=== PATIENT | male | born 1960 | race American Indian/Alaskan Native ===

== ENCOUNTER 2021-11-12 16:26 | Inpatient (IN) | payer OTHER ==
--- NOTE | 2021-11-12 16:29 | Emergency Department Report ---
ED General Adult HPI - General Chief complaint: Weakness Stated complaint: cva Time Seen by Provider: 11/12/21 16:26 Source: patient, family, EMS (Verbal report received from emergency medical services. EMS documentation not available at time of chart dictation ), RN notes reviewed Mode of arrival: Stretcher Limitations: Altered Mental Status, Physical Limitation - History of Present Illness Initial comments: The patient is a 61-year-old gentleman with history of stroke last month, diagnosed in [place]. He is brought to the hospital by emergency medical services with an EMS articulated complaint of worsening right-sided weakness, and confusion. EMS reports normal Accu-Chek in the field. As per EMS, last known well time was 5:00 PM yesterday. They report that patient is ambulatory in the field with requirements for significant assistance. The patient is awake and moving his left arm and left leg. The patient is confused, and has difficulty describing the qualitative nature of his symptoms, exacerbating factors relieving factors or aggravating factors. -: days(s) - Related Data Allergies Allergy/AdvReac Type Severity Reaction Status Date / Time No Known Allergies Allergy Unverified 11/12/21 17:19 ED Review of Systems ROS: Stated complaint: cva Other details as noted in HPI Comment: Unobtainable due to pts medical conditions ED Physical Exam - General Limitations: Altered Mental Status, Physical Limitation General appearance: in no apparent distress - Head Head exam: Present: atraumatic, normocephalic - Eye Eye exam: Present: normal appearance, EOMI. Absent: nystagmus - ENT ENT exam: Present: normal exam, normal orophraynx, mucous membranes moist, normal external ear exam - Neck Neck exam: Present: normal inspection, full ROM. Absent: tenderness, meningismus - Respiratory Respiratory exam: Present: decreased breath sounds. Absent: respiratory distress, wheezes, rales, rhonchi, stridor - Cardiovascular Cardiovascular Exam: Present: regular rate, normal rhythm, normal heart sounds. Absent: bradycardia, tachycardia, irregular rhythm, systolic murmur, diastolic murmur, rubs, gallop - GI/Abdominal GI/Abdominal exam: Present: soft. Absent: distended, tenderness, guarding, rebound, rigid, pulsatile mass - Rectal Rectal exam: Present: normal inspection - exam: Present: normal inspection External exam: Present: normal external exam - Extremities Exam Extremities exam: Present: normal inspection, full ROM (Left arm and left leg). Absent: pedal edema, calf tenderness - Back Exam Back exam: Present: normal inspection. Absent: tenderness, CVA tenderness (R), CVA tenderness (L), paraspinal tenderness, vertebral tenderness - Neurological Exam Neurological exam: Present: altered, other (There is right-sided weakness. Left arm and left leg 5 out of 5 strength. Sensation intact to light touch left arm and left leg. There is no facial droop. The tongue is midline. EOMI) - Psychiatric Psychiatric exam: Present: flat affect - Skin Skin exam: Present: warm, dry, intact, normal color. Absent: rash ED Course Vital Signs 11/12/21 11/12/21 11/12/21 17:09 17:12 17:16 Pulse Rate 83 80 89 Respiratory 19 20 21 Rate Blood Pressure 154/77 Blood Pressure 154/77 [Left] O2 Sat by Pulse 79 L 100 100 Oximetry 11/12/21 11/12/21 11/12/21 17:19 17:30 17:46 Pulse Rate 83 90 86 Respiratory 21 19 Rate Blood Pressure 142/77 142/77 Blood Pressure [Left] O2 Sat by Pulse 99 100 Oximetry 11/12/21 18:00 Pulse Rate 89 Respiratory 21 Rate Blood Pressure 151/99 Blood Pressure [Left] O2 Sat by Pulse 100 Oximetry - Reevaluation(s) Reevaluation #1: 11/12/21 18:24 Differential diagnosis, include but not limited to: Stroke, pneumonia, UTI, hypoglycemia, electrolyte derangement, thyroid derangement Assessment and plan: 61-year-old gentleman presenting with hypoglycemia, not able to swallow, started on dextrose drip, with worsening neurologic symptoms. Not a TPA candidate as he presents more than 4.5 hours after his last known well time, and as per collateral information from family, has had a stroke within the past [address] scan of the brain negative for acute findings. CT angiogram head and neck negative for large vessel occlusion. X-ray the chest unremarkable. Urinalysis pending. Start patient on dextrose infusion, administer rectal aspirin, admit patient to the medical service. 11/12/21 18:[address] Pascual, hospitalist ED Medical Decision Making - Lab Data Result diagrams: 11/12/21 16:48 11/12/21 16:48 Vital Signs 11/12/21 11/12/21 11/12/21 17:09 17:12 17:16 Pulse Rate 83 80 89 Respiratory 19 20 21 Rate Blood Pressure 154/77 Blood Pressure 154/77 [Left] O2 Sat by Pulse 79 L 100 100 Oximetry 11/12/21 17:19 Pulse Rate 83 Respiratory Rate Blood Pressure Blood Pressure [Left] O2 Sat by Pulse Oximetry Lab Results 11/12/21 11/12/21 11/12/21 Range/Units 16:48 16:48 16:48 WBC 9.4 (4.5-11.0) K/mm3 RBC 4.53 (3.65-5.03) M/mm3 Hgb 12.7 (11.8-15.2) gm/dl Hct 36.7 (35.5-45.6) % MCV 81 L (84-94) fl MCH 28 (28-32) pg MCHC 35 H (32-34) % RDW 13.4 (13.2-15.2) % Plt Count 294 (140-440) K/mm3 Lymph % (Auto) 15.1 (13.4-35.0) % Citrus % (Auto) 7.2 (0.0-7.3) % Eos % (Auto) 0.8 (0.0-4.3) % Baso % (Auto) 0.3 (0.0-1.8) % Lymph # (Auto) 1.4 (1.2-5.4) K/mm3 Citrus # (Auto) 0.7 (0.0-0.8) K/mm3 Eos # (Auto) 0.1 (0.0-0.4) K/mm3 Baso # (Auto) 0.0 (0.0-0.1) K/mm3 Seg Neutrophils % 76.6 H (40.0-70.0) % Seg Neutrophils # 7.2 (1.8-7.7) K/mm3 PT 13.5 (12.2-14.9) Sec. INR 0.93 (0.87-1.13) APTT 33.5 (24.2-36.6) Sec. Thrombin Time 14.6 L (15.1-19.6) Sec. Sodium 133 L (137-145) mmol/L Potassium 4.0 (3.6-5.0) mmol/L Chloride 96.7 L (98-107) mmol/L Carbon Dioxide 25 (22-30) mmol/L Anion Gap 15 mmol/L BUN 11 (9-20) mg/dL Creatinine 0.9 (0.8-1.3) mg/dL Estimated GFR > 60 ml/min BUN/Creatinine Ratio 12 % Glucose 79 (75-100) mg/dL POC Glucose (70-105) mg/dL Calcium 9.0 (8.4-10.2) mg/dL Magnesium (1.7-2.3) mg/dL Total Bilirubin 0.50 (0.1-1.2) mg/dL AST 18 (5-40) units/L ALT 25 (7-56) units/L Alkaline Phosphatase 64 (35-129) units/L Ammonia (25-60) umol/L Total Creatine Kinase 93 (55-170) units/L CK-MB (CK-2) < 1.0 (0.0-4.0) ng/mL CK-MB (CK-2) Rel Index 1.0 (0-4) Troponin T < 0.010 (0.00-0.029) ng/mL Total Protein 6.5 (6.3-8.2) g/dL Albumin 3.6 L (3.9-5) g/dL Albumin/Globulin Ratio 1.2 % 11/12/21 11/12/21 11/12/21 Range/Units 16:48 16:48 17:12 WBC (4.5-11.0) K/mm3 RBC (3.65-5.03) M/mm3 Hgb (11.8-15.2) gm/dl Hct (35.5-45.6) % MCV (84-94) fl MCH (28-32) pg MCHC (32-34) % RDW (13.2-15.2) % Plt Count (140-440) K/mm3 Lymph % (Auto) (13.4-35.0) % Citrus % (Auto) (0.0-7.3) % Eos % (Auto) (0.0-4.3) % Baso % (Auto) (0.0-1.8) % Lymph # (Auto) (1.2-5.4) K/mm3 Citrus # (Auto) (0.0-0.8) K/mm3 Eos # (Auto) (0.0-0.4) K/mm3 Baso # (Auto) (0.0-0.1) K/mm3 Seg Neutrophils % (40.0-70.0) % Seg Neutrophils # (1.8-7.7) K/mm3 PT (12.2-14.9) Sec. INR (0.87-1.13) APTT (24.2-36.6) Sec. Thrombin Time (15.1-19.6) Sec. Sodium (137-145) mmol/L Potassium (3.6-5.0) mmol/L Chloride (98-107) mmol/L Carbon Dioxide (22-30) mmol/L Anion Gap mmol/L BUN (9-20) mg/dL Creatinine (0.8-1.3) mg/dL Estimated GFR ml/min BUN/Creatinine Ratio % Glucose (75-100) mg/dL POC Glucose 61 L (70-105) mg/dL Calcium (8.4-10.2) mg/dL Magnesium 1.80 (1.7-2.3) mg/dL Total Bilirubin (0.1-1.2) mg/dL AST (5-40) units/L ALT (7-56) units/L Alkaline Phosphatase (35-129) units/L Ammonia 12.0 L (25-60) umol/L Total Creatine Kinase 93 (55-170) units/L CK-MB (CK-2) (0.0-4.0) ng/mL CK-MB (CK-2) Rel Index (0-4) Troponin T (0.00-0.029) ng/mL Total Protein (6.3-8.2) g/dL Albumin (3.9-5) g/dL Albumin/Globulin Ratio % - EKG Data -: EKG Interpreted by Wy EKG shows normal: sinus rhythm Rate: normal - EKG Data 11/12/21 18:00 The EKG is interpreted at 17: 43 Sinus rhythm, 63 bpm. Normal axis, QTC 4 1 7 ms. Motion artifact. High left ventricular voltage. Abnormal EKG. Not a STEMI. - Radiology Data Radiology results: pending, report reviewed, image reviewed CTA neck without and with intravenous contrast material CLINICAL HISTORY: stroke sx TECHNIQUE: Following acquisition of a timing bolus 0.625 mm thick contiguous axial scans were obtained from aortic arch to the skull base during rapid bolus intravenous contrast infusion. In addition to evaluation of axial source images multiplanar reconstructions were produced and reviewed for this report. 3 plane MIP reconstructions were produced and reviewed. Contrast dose report: Omnipaque 350: 100 ml, administered intravenously All CT examinations performed at this facility utilize modulated dose reduction, iterative reconstruction or weight-based dosing, as appropriate, to obtain a radiation dose which is as low as can reasonably be achieved. FINDINGS: Thoracic aorta:No abnormalities are identified along the course of the thoracic aorta..The origins of the great vessels have an unremarkable appearance. Brachiocephalic artery, left common carotid artery origin and left subclavian artery all have an unremarkable appearance. Right carotid artery:No a bnormalities are seen along the course of the RCCA, at the right carotid bifurcation or along the cervical portions of the RAYMOND. Left carotid artery: No abnormalities are noted along the course of the left common carotid artery, at the left carotid bifurcation or along the course of the cervical segments of the LICA. Posterior circulation:The vertebral arteries have an unremarkable appearance. Both vertebral arteries contribute to the basilar artery origin. The basilar artery has an unremarkable appearance. The degree of stenosis, if any, is determined utilizing NASCET like criteria. In this case there is no indication of hemodynamically significant stenosis at the carotid bifurcations or elsewhere. Evaluation of the nonvascular soft tissue structures reveal no abnormality. There is no indication of cervical lymphadenopathy. No abnormalities are seen along the course of the airway. Visualized portions of the parotid glands and the submandibular salivary glands have a normal appeara nce. Thyroid gland has a normal appearance. Evaluation of the lung apices reveals no evidence of lung nodule or infiltrate. Widespread cervical spondylosis is evident with anterior osteophyte formation present at multiple levels. Central spinal canal is adequate in size. Note is made of reflux of contrast into the left internal jugular vein and multiple paraspinous veins. IMPRESSION: 1. No indication of hemodynamically significant stenosis at the carotid bifurcations or elsewhere. CT A head with intravenous contrast CLINICAL HISTORY: stroke sx TECHNIQUE: 0.625 mm thick contiguous axial scans were obtained from the skull base to the skull vertex during rapid bolus administration of intravenous contrast material. Multiplanar reconstructions were produced in the coronal and sagittal planes. In addition 3 plane MIP instructions were produced and reviewed for this report. The axial source images and reconstructed images were reviewed for this report. CONTRAST DOSE REPORT: Omnipaque 350: 100 ml administered intravenously. All CT scans at this location are performed using CT dose reduction for ALARA by means of automated exposure control. FINDINGS: Internal carotid arterie s:Arjun, cavernous, opthalmic, clinoid and supraclinoid segments of the ICAs have an unremarkable appearance. Middle cerebral arteries:Normal and symmetrical M1 segments of the middle cerebral arteries are demonstrated. No abnormalities are seen on evaluation of the insular or opercular branches. Anterior cerebral arteries:Bilaterally symmetrical A1 segments are demonstrated. No abnormalities are seen along the course of the A2 segments or their visualized pericallosal branches. Vertebral arteries:Bilaterally symmetrical vertebral arteries are demonstrated. Both vertebral arteries contribute to the basilar artery origin. Basilar artery:Basilar artery has an unremarkable appearance. Posterior cerebral arteries:Bilaterally symmetrical posterior cerebral arteries are identified. [place] of [place]:Not intact. see above. Dural sinuses: Dural venous sinuses are well demonstrated on this exam. There is no evidence of dural sinus thrombosis. IMPRESSION: 1. No indication of large vessel occlusion or intracranial stenosis. COMMUNICATION: Time of Communication (STEWARDING SUPERVISOR/CDT): 1633 Central standard time Licensed Practitioner Receiving Report: Dr. Khoa Bonilla. Signer Name: Ross Rodgers MD Signed: 11/12/2021 4:[address] HEAD WITHOUT CONTRAST INDICATION / CLINICAL INFORMATION: Stroke symptoms. Increased right-sided weakness. History of infarction. TECHNIQUE: All CT scans at this location are performed using CT dose reduction for ALARA by means of automated exposure control. COMPARISON: None available. FINDINGS: HEMORRHAGE: No evidence of intracranial hemorrhage or extra-axial fluid collection. EXTRA- AXIAL SPACES: Cortical sulci and sylvian fissures are enlarged reflecting a degree of parenchymal volume loss which is greater than expected for the patient's age of 61 years. Basilar cisterns have an unremarkable appearance. VENTRICULAR SYSTEM: The third and lateral ventricles are enlarged reflecting presence of moderate parenchymal volume loss. CEREBRAL PARENCHYMA: Periventricular and deep white matter lucency is observed. This is probably secondary to advanced microvascular ischemic change. There is no indication of recent infarction. Several remote small deep infarctions are identified. The largest of these is in a left gangliocapsular distribution. Smaller remote deep infarctions are present in the posterior aspect of the right thalamus and in the subinsular region on the right. MIDLINE SHIFT OR HERNIATION: There is no mass effect. CEREBELLUM / BRAINSTEM: Brainstem has an unremarkable appearance. Age related cerebellar atrophy is noted. MIDLINE STRUCTURES:Pituitary gland has an unremarkable appearance. No abnormalities are seen in the pineal region. INTRACRANIAL VESSELS: No abnormalities are identified on head CT without contrast. CRANIOCERVICAL JUNCTION:No significant abnormality. ORBITS: visualized portions of the orbits have an unremarkable appearance. SOFT TISSUES of HEAD: No significant abnormality. CALVARIUM: Evaluation of bone windows reveals no abnormalities. PARANASAL SINUSES / MASTOID AIR CELLS: Circumferential mucosal thickening is present in the right maxillary sinus. Mucosal thickening is present in multiple anterior and mid ethmoid air cells bilaterally. Paranasal sinuses are otherwise clear. Normal and symmetrical pneumatization of the mastoid air cells is observed. IMPRESSION: 1. Multiple remote small deep infarctions. 2. No acute intracranial abnormality. CODE STROKE: Time of Communication (STEWARDING SUPERVISOR/CDT): 1600 hours Central standard time Licensed Practitioner Receiving Repo rt: Dr. Bonilla. Signer Name: Ross Rodgers MD Signed: 11/12/2021 4:07 PM Workstation Name: [id number] CHEST 1 VIEW, 11/12/2021 4:49 PM CLINICAL INFORMATION/INDICATION: CVA. Weakness. COMPARISON: None. FINDINGS: SUPPORT DEVICES: None. HEART: The cardiac silhouette is normal in size. LUNGS/PLEURA: The lungs are clear of focal airspace disease or significant pleural effusion. ADDITIONAL FINDINGS: No additional acute findings. IMPRESSION: 1. No evidence of acute cardiopulmonary process. Signer Name: Fawn Bustamante MD Signed: 11/12/2021 4:06 PM Workstation Name: [id number] Critical care attestation.: If time is entered above; I have spent that time in minutes in the direct care of this critically ill patient, excluding procedure time. ED Disposition Clinical Impression: Hypoglycemia, Right sided weakness, History of stroke Disposition: ADMITTED INPATIENT Is pt being admited?: Yes Does the pt Need Aspirin: No Condition: Fair
--- NOTE | 2021-11-12 16:43 | Consultation ---
History of Present Illness History of present illness: [facility] Consult Note # Demographics Consult Type: Acute Stroke Level 2 (4.5-24 hrs) Patient Location: Emergency Room First Name: Zac Last Name: Sebastian Date of : 1960 Age: 61 Gender: Male Facility: [facility] Time of Initial Page (): 11/12/2021, 16:11 Time of Return Call ( Time): 11/12/2021, 16:11 # HPI History: 61F with prior stroke with right sided deficits presents with worsening weakness and aphasia. Needing significant assistance to walk. # Scores Time of exam and NIHSS (): 11/12/2021, 16:29 Level of Consciousness 1a: [0] = Alert; keenly responsive LOC Questions 1b: [2] = Answers neither correctly LOC Commands 1c: [2] = Performs neither correctly Best Gaze 2: [1] = Partial gaze palsy Visual 3: [0] = No visual loss Facial Palsy 4: [0] = Normal symmetrical movements Motor Arm Left 5a: [0] = No drift Motor Arm Right 5b: [1] = Drift Motor Leg Left 6a: [0] = No drift Motor Leg Right 6b: [4] = No movement Limb Ataxia 7: [0] = Absent Sensory 8: [2] = Severe to total sensory loss Best Language 9: [2] = Severe aphasia Dysarthria 10: [1] = [id number] dysarthria Extinction and Inattention 11: [1] = Visual, tactile, auditory, spatial, or personal inattention NIHSS Total: 16 # Data Time Head CT personally read by me (): 11/12/2021, 16:[address]: no bleed preliminarily reviewed by me, please refer to radiology read for official reading CTA Head: no large vessel occlusion preliminarily reviewed by me, please refer to radiology read for official reading # Assessment Impression: Ischemic Stroke (Acute) # Plan Thrombolytic/Intervention: NOT IV Thrombolysis or IA Intervention candidate Thrombolytic Exclusion: > 4.5 hours Intraarterial Exclusion: no large vessel occlusion (LVO) Target Blood Pressure: SBP < 220 DBP < 105 Labs: hemoglobin A1c lipid panel Imaging: (urgency: routine): MRI Brain without contrast Diagnostic Test: echo with bubble study Therapy/Evaluation: NPO until swallow evaluation PT/OT evaluation speech/swallow consultation Medication: ASA 300 NV DVT Prophylaxis: SCD chemical DVT prophylaxis Other: consult on-site neurology service for full work-up and evaluation recommendations LDL < 70 permissive hypertension telemetry monitoring I have discussed my recommendations with the referring provider Disposition: admit # Logistics Telemedicine: Interactive 2 way audio and visual telecommunication technology was utilized during this visit Electronically signed at 11/12/2021 16:42 (Eastern Time) by Wily Fernandez MD
[2021-11-12 17:08] LABS: Basophils % (Auto) 0.3 % (0.0-1.8); Eosinophils # (Auto) 0.1 K/mm3 (0.0-0.4); Eosinophils % (Auto) 0.8 % (0.0-4.3); Hematocrit 36.7 % (35.5-45.6); Hemoglobin 12.7 gm/dl (11.8-15.2); Lymphocytes # (Auto) 1.4 K/mm3 (1.2-5.4); Lymphocytes % (Auto) 15.1 % (13.4-35.0); Mean Corpuscular HGB Conc 35 % (32-34); Mean Corpuscular Volume 81 fl (84-94); Monocytes # (Auto) 0.7 K/mm3 (0.0-0.8); Monocytes % (Auto) 7.2 % (0.0-7.3); Platelet Count 294 K/mm3 (140-440); Red Blood Count 4.53 M/mm3 (3.65-5.03); Red Cell Distribution Width 13.4 % (13.2-15.2)
[2021-11-12 17:17] LABS: INR 0.93 (0.87-1.13)
[2021-11-12 17:18] LABS: Partial Thromboplastin Time 33.5 Sec. (24.2-36.6); Thrombin Time 14.6 Sec. (15.1-19.6)
--- NOTE | 2021-11-12 17:20 | Cat Scan Report ---
CT HEAD WITHOUT CONTRAST INDICATION / CLINICAL INFORMATION: Stroke symptoms. Increased right-sided weakness. History of infarction. TECHNIQUE: All CT scans at this location are performed using CT dose reduction for ALARA by means of automated e xposure control. COMPARISON: None available. FINDINGS: HEMORRHAGE: No evidence of intracranial hemorrhage or extra-axial fluid collection. EXTRA-AXIAL SPACES: Cortical sulci and sylvian fissures are enlarged reflecting a degree of parenchym al volume loss which is greater than expected for the patient's age of 61 years. Basilar cisterns hav e an unremarkable appearance. VENTRICULAR SYSTEM: The third and lateral ventricles are enlarged reflecting presence of moderate par enchymal volume loss. CEREBRAL PARENCHYMA: Periventricular and deep white matter lucency is observed. This is probably seco ndary to advanced microvascular ischemic change. There is no indication of recent infarction. Several remote small deep infarctions are identified. The largest of these is in a left gangliocapsular dist ribution. Smaller remote deep infarctions are present in the posterior aspect of the right thalamus a nd in the subinsular region on the right. MIDLINE SHIFT OR HERNIATION: There is no mass effect. CEREBELLUM / BRAINSTEM: Brainstem has an unremarkable appearance. Age related cerebellar atrophy is n oted. MIDLINE STRUCTURES:Pituitary gland has an unremarkable appearance. No abnormalities are seen in the p ineal region. INTRACRANIAL VESSELS: No abnormalities are identified on head CT without contrast. CRANIOCERVICAL JUNCTION:No significant abnormality. ORBITS: visualized portions of the orbits have an unremarkable appearance. SOFT TISSUES of HEAD: No significant abnormality. CALVARIUM: Evaluation of bone windows reveals no abnormalities. PARANASAL SINUSES / MASTOID AIR CELLS: Circumferential mucosal thickening is present in the right max illary sinus. Mucosal thickening is present in multiple anterior and mid ethmoid air cells bilaterall y. Paranasal sinuses are otherwise clear. Normal and symmetrical pneumatization of the mastoid air ce lls is observed. IMPRESSION: 1. Multiple remote small deep infarctions. 2. No acute intracranial abnormality. CODE STROKE: Time of Communication (ENVIRONMENTAL GEOLOGIST/CDT): 1600 hours Central standard time Licensed Practitioner Receiving Report: Dr. Bonilla. Signer Name: Ross Rodgers MD Signed: 11/12/2021 5:07 PM Workstation Name: [id number]
--- NOTE | 2021-11-12 17:20 | XRay Report ---
CHEST 1 VIEW, 11/12/2021 4:49 PM CLINICAL INFORMATION/INDICATION: CVA. Weakness. COMPARISON: None. FINDINGS: SUPPORT DEVICES: None. HEART: The cardiac silhouette is normal in size. LUNGS/PLEURA: The lungs are clear of focal airspace disease or significant pleural effusion. ADDITIONAL FINDINGS: No additional acute findings. IMPRESSION: 1. No evidence of acute cardiopulmonary process. Signer Name: Fawn Bustamante MD Signed: 11/12/2021 5:06 PM Workstation Name: [employer]
[2021-11-12] MEDS ORDERED: D10W 250 ML IV SOLN IV PRN (17:33)
--- NOTE | 2021-11-12 17:38 | Cat Scan Report ---
CTA neck without and with intravenous contrast material CLINICAL HISTORY: stroke sx TECHNIQUE: Following acquisition of a timing bolus 0.625 mm thick contiguous axial scans were obtained from aort ic arch to the skull base during rapid bolus intravenous contrast infusion. In addition to evaluation of axial source images multiplanar reconstructions were produced and reviewed for this report. 3 [facility] ne MIP reconstructions were produced and reviewed. Contrast dose report: Omnipaque 350: 100 ml, administered intravenously All CT examinations performed at this facility utilize modulated dose reduction, iterative reconstruc tion or weight-based dosing, as appropriate, to obtain a radiation dose which is as low as can reason ably be achieved. FINDINGS: Thoracic aorta:No abnormalities are identified along the course of the thoracic aorta..The origins of the great vessels have an unremarkable appearance. Brachiocephalic artery, left common carotid arter y origin and left subclavian artery all have an unremarkable appearance. Right carotid artery:No abnormalities are seen along the course of the RCCA, at the right carotid bif urcation or along the cervical portions of the RAYMOND. Left carotid artery: No abnormalities are noted along the course of the left common carotid artery, a t the left carotid bifurcation or along the course of the cervical segments of the LICA. Posterior circulation:The vertebral arteries have an unremarkable appearance. Both vertebral arteries contribute to the basilar artery origin. The basilar artery has an unremarkable appearance. The degree of stenosis, if any, is determined utilizing NASCET like criteria. In this case there is no indication of hemodynamically significant stenosis at the carotid bifurcations or elsewhere. Evaluation of the nonvascular soft tissue structures reveal no abnormality. There is no indication of cervical lymphadenopathy. No abnormalities are seen along the course of the airway. Visualized porti ons of the parotid glands and the submandibular salivary glands have a normal appearance. Thyroid gla nd has a normal appearance. Evaluation of the lung apices reveals no evidence of lung nodule or infil trate. Widespread cervical spondylosis is evident with anterior osteophyte formation present at multiple lev els. Central spinal canal is adequate in size. Note is made of reflux of contrast into the left internal jugular vein and multiple paraspinous veins . IMPRESSION: 1. No indication of hemodynamically significant stenosis at the carotid bifurcations or elsewhere. CTA head with intravenous contrast CLINICAL HISTORY: stroke sx TECHNIQUE: 0.625 mm thick contiguous axial scans were obtained from the skull base to the skull vertex during r apid bolus administration of intravenous contrast material. Multiplanar reconstructions were produced in the coronal and sagittal planes. In addition 3 plane MIP instructions were produced and reviewed for this report. The axial source images and reconstructed images were reviewed for this report. CONTRAST DOSE REPORT: Omnipaque 350: 100 ml administered intravenously. All CT scans at this location are performed using CT dose reduction for ALARA by means of automated e xposure control. FINDINGS: Internal carotid arteries:Arjun, cavernous, opthalmic, clinoid and supraclinoid segments of the ICAs have an unremarkable appearance. Middle cerebral arteries:Normal and symmetrical M1 segments of the middle cerebral arteries are demon strated. No abnormalities are seen on evaluation of the insular or opercular branches. Anterior cerebral arteries:Bilaterally symmetrical A1 segments are demonstrated. No abnormalities are seen along the course of the A2 segments or their visualized pericallosal branches. Vertebral arteries:Bilaterally symmetrical vertebral arteries are demonstrated. Both vertebral arteri es contribute to the basilar artery origin. Basilar artery:Basilar artery has an unremarkable appearance. Posterior cerebral arteries:Bilaterally symmetrical posterior cerebral arteries are identified. [place]:Not intact. see above. Dural sinuses: Dural venous sinuses are well demonstrated on this exam. There is no evidence of dural sinus thrombosis. IMPRESSION: 1. No indication of large vessel occlusion or intracranial stenosis. COMMUNICATION: Time of Communication (BENDING ROLL OPERATOR/CDT): 1633 Central standard time Licensed Practitioner Receiving Report: Dr. Khoa Bonilla. Signer Name: Ross Rodgers MD Signed: 11/12/2021 5:34 PM Workstation Name: [email or web address]
[2021-11-12 17:41] LABS: Alanine Aminotransferase 25 units/L (7-56); Albumin 3.6 g/dL (3.9-5); BUN/Creatinine Ratio 12; Blood Urea Nitrogen 11 mg/dL (9-20); Hemolysis Index 16
[2021-11-12 17:44] LABS: Creatine Kinase MB < 1.0 ng/mL (0.0-4.0)
[2021-11-12] MEDS ORDERED: ASPIRIN 300 MG RECT SUPP PR ONE (18:00)
[2021-11-12] MEDS: DEXTROSE 10% IN WATER 1,000 ML IV SCH (19:00)
--- NOTE | 2021-11-12 19:07 | History and Physical Report ---
History of Present Illness Chief complaint: He is weak on his right side and he is more confused today History of present illness: 61 YO Male with Vascular Dementia, Cerebral Atherosclerosis, CVA presents to ED for evaluation. Patient has diminished cognition and is unable to provide detailed history. Patient history taken from EMS staff, ED staff, as well as patient family who was at bedside during exam and interview. As per family member reports the patient has experienced sudden onset weakness on his right s lauren as well as increased confusion. Patient symptoms began at around 1700 hrs. on the day prior to admission. Patient was found to have persistent symptoms today. EMS was notified and upon arrival the patient was found to have a neurologic deficit. A code stroke was called and the patient was transported to [facility] for further care and evaluation of the aforementioned symptoms. The patient was seen and evaluated in the emergency department. All lab and imaging studies reviewed. Patient found to have clinical symptoms consistent with CVA complicated by dysphagia, dysarthria. Patient also found to have hypoglycemia and was treated with dextrose therapy with mild improvement in symptoms. P atient admitted to telemetry and initiated on stroke protocol. No reports of fever, chills, chest pain, palpitation, productive cough, skin rash, recent contact, or known exposure to COVID-19. No prior admission for review. No medication listed at time of admission for reconciliation. Teleneurology consulted in ED. Advanced care planning conducted in ED. Patient has a positive gag reflex at the time my evaluation is able to protect his airway without difficulty. Past History Past Medical History: stroke Past Surgical History: No surgical history, Other (Reviewed) Social history: single, lives with family Family history: hypertension Medications and Allergies Allergies Allergy/AdvReac Type Severity Reaction Status Date / Time No Known Allergies Allergy Unverified 11/12/21 17:19 Active Meds: Active Medications Dextrose (D10w 250 Ml Iv Soln) 75 ml IV PRN PRN PRN Reason: Hypoglycemia Dextrose (D10w) 1,000 mls @ 100 mls/hr IV DIRECT RUBY Last Admin: 11/12/21 19:00 Dose: 100 mls/hr Review of Systems ROS unobtainable: due to mental status Exam - Constitutional Vitals: Temp Pulse Resp BP Pulse Ox 89 21 151/99 100 11/12/21 18:00 11/12/21 18:00 11/12/21 18:00 11/12/21 18:00 General appearance: Present: mild distress - EENT Eyes: Present: PERRL ENT: hearing intact, clear oral mucosa, hearing decreased - Neck Neck: Present: supple, normal ROM - Respiratory Respiratory effort: normal Respiratory: bilateral: CTA - Cardiovascular Heart Sounds: Present: S1 & S2. Absent: rub, click - Extremities Extremities: pulses symmetrical, No edema Peripheral Pulses: within normal limits - Abdominal General gastrointestinal: Present: soft, non-tender, non-distended, normal bowel sounds Male genitourinary: Present: normal - Integumentary Integumentary: Present: clear, dry - Musculoskeletal Musculoskeletal: right sided weakness - Psychiatric Psychiatric: no intact judgment & insight, no memory intact, cooperative - Neurologic Neurologic: no CNII-XII intact, focal deficits, no moves all extremities, no gait normal HEART Score - HEART Score Troponin: Troponin T < 0.010 ng/mL (0.00-0.029) 11/12/21 16:48 Results - Labs CBC & Chem 7: 11/12/21 16:48 11/12/21 16:48 Labs: Abnormal lab results 11/12/21 11/12/21 11/12/21 Range/Units 16:48 16:48 16:48 MCV 81 L (84-94) fl MCHC 35 H (32-34) % Seg Neutrophils % 76.6 H (40.0-70.0) % Thrombin Time 14.6 L (15.1-19.6) Sec. Sodium 133 L (137-145) mmol/L Chloride 96.7 L (98-107) mmol/L POC Glucose (70-105) mg/dL Ammonia (25-60) umol/L Albumin 3.6 L (3.9-5) g/dL 11/12/21 11/12/21 Range/Units 16:48 17:12 MCV (84-94) fl MCHC (32-34) % Seg Neutrophils % (40.0-70.0) % Thrombin Time (15.1-19.6) Sec. Sodium (137-145) mmol/L Chloride (98-107) mmol/L POC Glucose 61 L (70-105) mg/dL Ammonia 12.0 L (25-60) umol/L Albumin (3.9-5) g/dL Assessment and Plan - Patient Problems (1) CVA (cerebral vascular accident) Current Visit: Yes Status: Acute Plan to address problem: CVA protocol: CT head, neuro check, seizure precautions, aspiration precautions, fall precautions, physical therapy consulted, Occupational Therapy consulted, speech therapy consulted, lipid panel, statin therapy, antiplatelet therapy, echocardiogram, carotid Doppler. Telemetry neurology consulted. (2) Right hemiparesis Current Visit: Yes Status: Acute Plan to address problem: Secondary to CVA, physical therapy consulted, supportive care. (3) Dysarthria due to acute cerebrovascular accident (CVA) Current Visit: Yes Status: Acute Plan to address problem: Speech therapy consulted, supportive care, (4) Dysphagia Current Visit: Yes Status: Acute Qualifiers: Dysphagia type: oropharyngeal phase Qualified Code(s): R13.12 - Dysphagia, oropharyngeal phase Plan to address problem: Speech therapy consulted, supportive care. (5) Debility Current Visit: Yes Status: Acute Plan to address problem: Physical therapy consulted, supportive care. (6) Hypoglycemia Current Visit: Yes Status: Acute Plan to address problem: Dextrose therapy. Repeat BMP in a.m. (7) DVT prophylaxis Current Visit: Yes Status: Acute Plan to address problem: SCD to bilateral lower extremities while in bed (8) Advance care planning Current Visit: Yes Status: Acute Plan to address problem: disease education conducted, care plan discussed, diagnoses discussed, prognosis discussed, patient is full code. +30 minutes.
[2021-11-12] MEDS ORDERED: METOCLOPRAMIDE 10 MG TAB PO PRN (19:10)
[2021-11-12] MEDS ORDERED: HYDROmorphone 1 MG/1 ML INJ IV PRN (19:10)
[2021-11-12] MEDS ORDERED: oxyCODONE /ACETAMINOPHEN 5-325MG TAB PO PRN (19:10)
[2021-11-12] MEDS ORDERED: ACETAMINOPHEN 325 MG TAB PO PRN (19:10)
[2021-11-12] MEDS ORDERED: MAGNESIUM HYDROXIDE (MOM) ORAL LIQD UDC PO PRN (19:10)
[2021-11-12 19:17] LABS: Bilirubin,Urine NEG (Negative); Blood,Urine NEG (Negative); Color,Urine Yellow (Yellow); Mucus,Urine 1+ /HPF; Protein,Urine <15 mg/dL mg/dL (Negative); WBC,Urine < 1.0 /HPF (0.0-6.0)
[2021-11-13] MEDS: DEXTROSE 10% IN WATER 1,000 ML IV SCH ×2 (04:01→21:13)
[2021-11-13] MEDS: ASPIRIN 325 MG TAB PO SCH (10:04)
[2021-11-13] MEDS: CLOPIDOGREL 75 MG TAB PO SCH (10:05)
--- NOTE | 2021-11-13 10:27 | Electrocardiograph Report ---
[facility] Test Date: 2021-11-12 Test Time: 17:43:50 Pat Name: TIMOTHY SANCHEZ Department: Room: A474 1 Gender: M Scallop Cutter: SOCORRO : 1960 Requested By: WALLY RIVERS Order Number: [id number] Reading MD: Nakul Cadet Measurements Intervals [place] Rate: 82 P: 58 MI: 164 QRS: 38 QRSD: 80 T: 33 QT: 358 QTc: 417 Interpretive Statements Sinus rhythm NSST'S No previous ECG available for comparison Electronically Signed On 11-13-2021 10:27:42 EDT by Nakul Cadet
--- NOTE | 2021-11-13 10:45 | Progress Note ---
Assessment and Plan Assessment and plan: 61 YO Male with Vascular Dementia, Cerebral Atherosclerosis, CVA presents to ED for evaluation of CVA patient found to have clinical symptoms consistent with CVA complicated by dysphagia, dysarthria. Patient also appears to have expressive aphasia. Patient also found to have hypoglycemia and was treated with dextrose therapy with mild improvement in symptoms. Patient admitted to telemetry and initiated on stroke protocol. Acute CVA with right hemiparesis Expressive aphasia Dysarthria Oropharyngeal dysphagia Debility Hypoglycemia 11/13/2021. Continue secondary prevention with aspirin and Lipitor. Check MRI brain and echocardiogram. CTA of head and neck are negative. Await neurology c onsultation. Await PT and ST evaluations History Interval history: No new issues overnight. Hospitalist Physical - Constitutional Vitals: Temp Pulse Resp BP Pulse Ox 97.3 F L 65 16 146/82 100 11/13/21 08:54 11/13/21 08:54 11/13/21 08:54 11/13/21 08:54 11/13/21 08:54 General appearance: Present: mild distress - EENT Eyes: Present: PERRL, EOM intact ENT: hearing intact, clear oral mucosa, dentition normal - Neck Neck: Present: supple, normal ROM - Respiratory Respiratory effort: normal Respiratory: bilateral: CTA - Cardiovascular Rhythm: regular Heart Sounds: Present: S1 & S2. Absent: gallop, rub - Extremities Extremities: no ischemia, No edema, Full ROM - Abdominal General gastrointestinal: soft, non-tender, non-distended, normal bowel sounds - Integumentary Integumentary: Present: clear, warm, dry - Neurologic Neurologic: CNII-XII intact, moves all extremities HEART Score - HEART Score Troponin: Troponin T < 0.010 ng/mL (0.00-0.029) 11/12/21 16:48 Results - Labs CBC & Chem 7: 11/12/21 16:48 11/12/21 16:48 Labs: Laboratory Last Values WBC 9.4 K/mm3 (4.5-11.0) 11/12/21 16:48 RBC 4.53 M/mm3 (3.65-5.03) 11/12/21 16:48 Hgb 12.7 gm/dl (11.8-15.2) 11/12/21 16:48 Hct 36.7 % (35.5-45.6) 11/12/21 16:48 MCV 81 fl (84-94) L 11/12/21 16:48 MCH 28 pg (28-32) 11/12/21 16:48 MCHC 35 % (32-34) H 11/12/21 16:48 RDW 13.4 % (13.2-15.2) 11/12/21 16:48 Plt Count 294 K/mm3 (140-440) 11/12/21 16:48 Lymph % (Auto) 15.1 % (13.4-35.0) 11/12/21 16:48 Otero % (Auto) 7.2 % (0.0-7.3) 11/12/21 16:48 Eos % (Auto) 0.8 % (0.0-4.3) 11/12/21 16:48 Baso % (Auto) 0.3 % (0.0-1.8) 11/12/21 16:48 Lymph # (Auto) 1.4 K/mm3 (1.2-5.4) 11/12/21 16:48 Otero # (Auto) 0.7 K/mm3 (0.0-0.8) 11/12/21 16:48 Eos # (Auto) 0.1 K/mm3 (0.0-0.4) 11/12/21 16:48 Baso # (Auto) 0.0 K/mm3 (0.0-0.1) 11/12/21 16:48 Seg Neutrophils % 76.6 % (40.0-70.0) H 11/12/21 16:48 Seg Neutrophils # 7.2 K/mm3 (1.8-7.7) 11/12/21 16:48 PT 13.5 Sec. (12.2-14.9) 11/12/21 16:48 INR 0.93 (0.87-1.13) 11/12/21 16:48 APTT 33.5 Sec. (24.2-36.6) 11/12/21 16:48 Thrombin Time 14.6 Sec. (15.1-19.6) L 11/12/21 16:48 Sodium 133 mmol/L (137-145) L 11/12/21 16:48 Potassium 4.0 mmol/L (3.6-5.0) 11/12/21 16:48 Chloride 96.7 mmol/L (98-107) L 11/12/21 16:48 Carbon Dioxide 25 mmol/L (22-30) 11/12/21 16:48 Anion Gap 15 mmol/L 11/12/21 16:48 BUN 11 mg/dL (9-20) 11/12/21 16:48 Creatinine 0.9 mg/dL (0.8-1.3) 11/12/21 16:48 Estimated GFR > 60 ml/min 11/12/21 16:48 BUN/Creatinine Ratio 12 % 11/12/21 16:48 Glucose 79 mg/dL (75-100) 11/12/21 16:48 POC Glucose 148 mg/dL (70-105) H 11/13/21 07:29 Calcium 9.0 mg/dL (8.4-10.2) 11/12/21 16:48 Magnesium 1.80 mg/dL (1.7-2.3) 11/12/21 16:48 Total Bilirubin 0.50 mg/dL (0.1-1.2) 11/12/21 16:48 AST 18 units/L (5-40) 11/12/21 16:48 ALT 25 units/L (7-56) 11/12/21 16:48 Alkaline Phosphatase 64 units/L (35-129) 11/12/21 16:48 Ammonia 12.0 umol/L (25-60) L 11/12/21 16:48 Total Creatine Kinase 93 units/L (55-170) 11/12/21 16:48 Total Creatine Kinase 93 units/L (55-170) 11/12/21 16:48 CK-MB (CK-2) < 1.0 ng/mL (0.0-4.0) 11/12/21 16:48 CK-MB (CK-2) Rel Index 1.0 (0-4) 11/12/21 16:48 Troponin T < 0.010 ng/mL (0.00-0.029) 11/12/21 16:48 Total Protein 6.5 g/dL (6.3-8.2) 11/12/21 16:48 Albumin 3.6 g/dL (3.9-5) L 11/12/21 16:48 Albumin/Globulin Ratio 1.2 % 11/12/21 16:48 TSH 1.040 mlU/mL (0.270-4.200) 11/12/21 16:48 Urine Color Yellow (Yellow) 11/12/21 18:06 Urine Turbidity Clear (Clear) 11/12/21 18:06 Urine pH 6.0 (5.0-7.0) 11/12/21 18:06 Ur Specific Leroy 1.060 (1.003-1.030) H 11/12/21 18:06 Urine Protein <15 mg/dl mg/dL (Negative) 11/12/21 18:06 Urine Glucose (UA) Neg mg/dL (Negative) 11/12/21 18:06 Urine Ketones Tr mg/dL (Negative) 11/12/21 18:06 Urine Blood Neg (Negative) 11/12/21 18:06 Urine Nitrite Neg (Negative) 11/12/21 18:06 Urine Bilirubin Neg (Negative) 11/12/21 18:06 Urine Urobilinogen 4.0 mg/dL (<2.0) 11/12/21 18:06 Ur Leukocyte Esterase Neg (Negative) 11/12/21 18:06 Urine WBC (Auto) < 1.0 /HPF (0.0-6.0) 11/12/21 18:06 Urine RBC (Auto) 1.0 /HPF (0.0-6.0) 11/12/21 18:06 U Epithel Cells (Auto) 3.0 /HPF (0-13.0) 11/12/21 18:06 Urine Mucus 1+ /HPF 11/12/21 18:06 Walker/IV: Voiding Method Condom Catheter Active Medications - Current Medications Current Medications: Generic Name Dose Route Start Last Admin Trade Name Freq PRN Reason Stop Dose Admin Acetaminophen 650 mg 11/12/21 19:10 Acetaminophen 325 Mg Tab PO Q4H PRN Pain, Mild (1-3) Aspirin 325 mg 11/13/21 10:00 Aspirin 325 Mg Tab PO QDAY RUBY Atorvastatin Calcium 40 mg 11/12/21 22:00 11/12/21 22:00 Atorvastatin 40 Mg Tab PO 40 mg QHS RUBY Administration Bisacodyl 10 mg 11/12/21 19:10 Bisacodyl 10 Mg Rect Supp MI QDAY PRN Constipation Clopidogrel Bisulfate 75 mg 11/13/21 10:00 Clopidogrel 75 Mg Tab PO QDAY RUBY Dextrose 0 ml 11/13/21 07:05 Dextrose 10% *Hypoglycemia IV PRN PRN Hypoglycemia Hydromorphone HCl 0.5 mg 11/12/21 19:10 Hydromorphone 1 Mg/1 Ml Inj IV Q23H PRN Pain , Severe (7-10) Dextrose 1,000 mls @ 100 mls/hr 11/12/21 18:00 11/13/21 04:01 D10w IV 100 mls/hr DIRECT RUBY Administration Magnesium Hydroxide 30 ml 11/12/21 19:10 Magnesium Hydroxide (Mom) Oral Liqd Udc PO Q4H PRN Constipation Metoclopramide HCl 10 mg 11/12/21 19:10 Metoclopramide 10 Mg Tab PO Q6H PRN Nausea And Vomiting Ondansetron HCl 4 mg 11/12/21 19:10 Ondansetron 4 Mg/2 Ml Inj IV Q8H PRN Nausea And Vomiting Oxycodone/Acetaminophen 1 tab 11/12/21 19:10 Oxycodone /Acetaminophen 5-325mg Tab PO Q16H PRN Pain, Moderate (4-6) Promethazine HCl 25 mg 11/12/21 19:10 Promethazine 25 Mg Rect Supp MI Q6H PRN Nausea And Vomiting Sodium Chloride 10 ml 11/12/21 19:10 11/12/21 22:00 Sodium Chloride 0.9% 10 Ml Flush Syringe IV 10 ml PRN PRN Administration LINE FLUSH
--- NOTE | 2021-11-13 14:55 | Vascular Lab Report ---
VL carotid duplex BILAT INDICATION / CLINICAL INFORMATION: stroke COMPARISON: None available. FINDINGS: RIGHT CAROTID: - CCA velocity: 102 cm/sec. - ICA peak systolic velocity: 66 cm/sec. - ICA/CCA PSV Ratio: Less than 2 Right Vertebral Artery: Antegrade flow. LEFT CAROTID: - CCA velocity: 105 cm/sec. - ICA peak systolic velocity: 56 cm/sec. - ICA/CCA PSV Ratio: Less than 2 Left Vertebral Artery: Antegrade flow. IMPRESSION: 1. No occlusion or hemodynamically significant stenosis of the bilateral carotid arteries. Velocity criteria are extrapolated from diameter data as defined by the Society of Radiologists in Ul trasound Consensus Conference, Radiology 2003; 229;340-346. NO STENOSIS (NORMAL) * Plaque = none; ICA PSV < 125 cm/sec; ICA/CCA PSV Ratio < 2.0 <50% STENOSIS * Plaque < 50%; ICA PSV < 125 cm/sec; ICA/CCA PSV Ratio < 2.0 50-69% STENOSIS * Plaque > 50%; ICA PSV = 125-230 cm/sec; ICA/CCA PSV Ratio = 2.0-4.0 >70% BUT <100% STENOSIS * Plaque > 50%; ICA PSV > 230 cm/sec; ICA/CCA PSV Ratio > 4.0 NEAR OCCLUSION * Plaque = visible lumen; ICA PSV = high/low/none; ICA/CCA PSV Ratio = variable TOTAL OCCLUSION * Plaque = no lumen; ICA PSV = none; ICA/CCA PSV Ratio = N/A Signer Name: Aydin Weiner MD Signed: 11/13/2021 2:50 PM Workstation Name: [id number]
--- NOTE | 2021-11-13 17:26 | Magnetic Resonance Report ---
MR brain wo con INDICATION / CLINICAL INFORMATION: 61 years Male; CVA, WEAKNESS RT SIDE. TECHNIQUE: Multiplanar, multisequence MR images of the brain were obtained. Motion artifact. COMPARISON: CT - 11/12/2021 FINDINGS: BRAIN / INTRACRANIAL CONTENTS: A few scattered areas of acute ischemia are identified in expected loc ation of the corpus callosum leftward of midline. Minimal involvement is seen in the gangliocapsular region on the right. There may be a few areas of subacute ischemia as well. Embolic phenomena should be considered. 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 Old, small branch PICA infarct seen on the left. Otherwise, no acute hemorrhage, mass effect, midline shift, hydrocephalus, or acute, large territori al infarct. Mild, diffuse cerebral atrophy noted. Mild to moderate degree of hippocampal atrophy suggested bilate rally. There are moderate, confluent areas of increased signal intensity on FLAIR imaging in the white matte r of the cerebral hemispheres. These are nonspecific findings and may be related to microangiopathy ( hypertension, diabetes, atherosclerosis), given the patient's age. CRANIOCERVICAL JUNCTION: No significant abnormality. VASCULAR FLOW-VOIDS: No significant abnormality. ORBITS: No significant abnormality of visualized orbits. SINUSES / MASTOIDS: Mild to moderate mucosal thickening seen in the ethmoids. Moderate mucosal thicke gary seen in the right maxillary antrum. ADDITIONAL FINDINGS: None. IMPRESSION: 1. A few, small, scattered areas of ischemia as described above. Embolic phenomena should be consider ed. 2. Otherwise, no focal mass, acute hemorrhage, hydrocephalus, or acute, large territorial infarct see n. 3. Sinus disease noted. Signer Name: Brendon Lane MD, III Signed: 11/13/2021 5:21 PM Workstation Name: [email or web address]
--- NOTE | 2021-11-14 09:42 | Progress Note ---
Assessment and Plan Assessment and plan: 61 YO Male with Vascular Dementia, Cerebral Atherosclerosis, CVA presents to ED for evaluation of CVA patient found to have clinical symptoms consistent with CVA complicated by dysphagia, dysarthria. Patient also appears to have expressive aphasia. Patient also found to have hypoglycemia and was treated with dextrose therapy with mild improvement in symptoms. Patient admitted to telemetry and initiated on stroke protocol. Acute CVA with right hemiparesis Expressive aphasia Dysarthria Oropharyngeal dysphagia Debility Hypoglycemia 11/13/2021. Continue secondary prevention with aspirin and Lipitor. Check MRI brain and echocardiogram. CTA of head and neck are negative. Await neurology c onsultation. Await PT and ST evaluations 11/13/2021. Continue secondary prevention with aspirin and Lipitor. MRI reveals a few small scattered areas of ischemia in the area of the corpus callosum left foot of the midline and minimal involvement in the ganglial capsular region on the right which could represent embolic phenomena. No focal mass, acute hemorrhage or hydrocephalus. No acute large territorial infarct seen. Echocardiogram did not reveal thrombi/emboli and no PFO. Physical therapy recommends subacute rehab. Speech therapy did not evaluate the patient yesterday. Await speech therapy evaluation to determine if patient will need Dobbhoff tube feeding. Continue D10 IV fluid for now History Interval history: No new issues overnight. Hospitalist Physical - Constitutional Vitals: Temp Pulse Resp BP Pulse Ox 98.3 F 77 18 142/82 97 11/14/21 08:06 11/14/21 08:06 11/14/21 08:06 11/14/21 08:06 11/14/21 09:33 General appearance: Present: mild distress - EENT Eyes: Present: PERRL, EOM intact ENT: hearing intact, clear oral mucosa, dentition normal - Neck Neck: Present: supple, normal ROM - Respiratory Respiratory effort: normal Respiratory: bilateral: CTA - Cardiovascular Rhythm: regular Heart Sounds: Present: S1 & S2. Absent: gallop, rub - Extremities Extremities: no ischemia, No edema, Full ROM - Abdominal General gastrointestinal: soft, non-tender, non-distended, normal bowel sounds - Integumentary Integumentary: Present: clear, warm, dry - Neurologic Neurologic: CNII-XII intact, moves all extremities HEART Score - HEART Score Troponin: Troponin T < 0.010 ng/mL (0.00-0.029) 11/12/21 16:48 Results - Labs CBC & Chem 7: 11/12/21 16:48 11/12/21 16:48 Labs: Laboratory Last Values WBC 9.4 K/mm3 (4.5-11.0) 11/12/21 16:48 RBC 4.53 M/mm3 (3.65-5.03) 11/12/21 16:48 Hgb 12.7 gm/dl (11.8-15.2) 11/12/21 16:48 Hct 36.7 % (35.5-45.6) 11/12/21 16:48 MCV 81 fl (84-94) L 11/12/21 16:48 MCH 28 pg (28-32) 11/12/21 16:48 MCHC 35 % (32-34) H 11/12/21 16:48 RDW 13.4 % (13.2-15.2) 11/12/21 16:48 Plt Count 294 K/mm3 (140-440) 11/12/21 16:48 Lymph % (Auto) 15.1 % (13.4-35.0) 11/12/21 16:48 [place] % (Auto) 7.2 % (0.0-7.3) 11/12/21 16:48 Eos % (Auto) 0.8 % (0.0-4.3) 11/12/21 16:48 Baso % (Auto) 0.3 % (0.0-1.8) 11/12/21 16:48 Lymph # (Auto) 1.4 K/mm3 (1.2-5.4) 11/12/21 16:48 [place] # (Auto) 0.7 K/mm3 (0.0-0.8) 11/12/21 16:48 Eos # (Auto) 0.1 K/mm3 (0.0-0.4) 11/12/21 16:48 Baso # (Auto) 0.0 K/mm3 (0.0-0.1) 11/12/21 16:48 Seg Neutrophils % 76.6 % (40.0-70.0) H 11/12/21 16:48 Seg Neutrophils # 7.2 K/mm3 (1.8-7.7) 11/12/21 16:48 PT 13.5 Sec. (12.2-14.9) 11/12/21 16:48 INR 0.93 (0.87-1.13) 11/12/21 16:48 APTT 33.5 Sec. (24.2-36.6) 11/12/21 16:48 Thrombin Time 14.6 Sec. (15.1-19.6) L 11/12/21 16:48 Sodium 133 mmol/L (137-145) L 11/12/21 16:48 Potassium 4.0 mmol/L (3.6-5.0) 11/12/21 16:48 Chloride 96.7 mmol/L (98-107) L 11/12/21 16:48 Carbon Dioxide 25 mmol/L (22-30) 11/12/21 16:48 Anion Gap 15 mmol/L 11/12/21 16:48 BUN 11 mg/dL (9-20) 11/12/21 16:48 Creatinine 0.9 mg/dL (0.8-1.3) 11/12/21 16:48 Estimated GFR > 60 ml/min 11/12/21 16:48 BUN/Creatinine Ratio 12 % 11/12/21 16:48 Glucose 79 mg/dL (75-100) 11/12/21 16:48 POC Glucose 105 mg/dL (70-105) 11/14/21 08:04 Calcium 9.0 mg/dL (8.4-10.2) 11/12/21 16:48 Magnesium 1.80 mg/dL (1.7-2.3) 11/12/21 16:48 Total Bilirubin 0.50 mg/dL (0.1-1.2) 11/12/21 16:48 AST 18 units/L (5-40) 11/12/21 16:48 ALT 25 units/L (7-56) 11/12/21 16:48 Alkaline Phosphatase 64 units/L (35-129) 11/12/21 16:48 Ammonia 12.0 umol/L (25-60) L 11/12/21 16:48 Total Creatine Kinase 93 units/L (55-170) 11/12/21 16:48 Total Creatine Kinase 93 units/L (55-170) 11/12/21 16:48 CK-MB (CK-2) < 1.0 ng/mL (0.0-4.0) 11/12/21 16:48 CK-MB (CK-2) Rel Index 1.0 (0-4) 11/12/21 16:48 Troponin T < 0.010 ng/mL (0.00-0.029) 11/12/21 16:48 Total Protein 6.5 g/dL (6.3-8.2) 11/12/21 16:48 Albumin 3.6 g/dL (3.9-5) L 11/12/21 16:48 Albumin/Globulin Ratio 1.2 % 11/12/21 16:48 TSH 1.040 mlU/mL (0.270-4.200) 11/12/21 16:48 Urine Color Yellow (Yellow) 11/12/21 18:06 Urine Turbidity Clear (Clear) 11/12/21 18:06 Urine pH 6.0 (5.0-7.0) 11/12/21 18:06 Ur Specific [place] 1.060 (1.003-1.030) H 11/12/21 18:06 Urine Protein <15 mg/dl mg/dL (Negative) 11/12/21 18:06 Urine Glucose (UA) Neg mg/dL (Negative) 11/12/21 18:06 Urine Ketones Tr mg/dL (Negative) 11/12/21 18:06 Urine Blood Neg (Negative) 11/12/21 18:06 Urine Nitrite Neg (Negative) 11/12/21 18:06 Urine Bilirubin Neg (Negative) 11/12/21 18:06 Urine Urobilinogen 4.0 mg/dL (<2.0) 11/12/21 18:06 Ur Leukocyte Esterase Neg (Negative) 11/12/21 18:06 Urine WBC (Auto) < 1.0 /HPF (0.0-6.0) 11/12/21 18:06 Urine RBC (Auto) 1.0 /HPF (0.0-6.0) 11/12/21 18:06 U Epithel Cells (Auto) 3.0 /HPF (0-13.0) 11/12/21 18:06 Urine Mucus 1+ /HPF 11/12/21 18:06 Walker/IV: Voiding Method Condom Catheter Active Medications - Current Medications Current Medications: Generic Name Dose Route Start Last Admin Trade Name Freq PRN Reason Stop Dose Admin Acetaminophen 650 mg 11/12/21 19:10 Acetaminophen 325 Mg Tab PO Q4H PRN Pain, Mild (1-3) Aspirin 325 mg 11/13/21 10:00 11/13/21 10:04 Aspirin 325 Mg Tab PO Not Given QDAY RUBY Atorvastatin Calcium 40 mg 11/12/21 22:00 11/13/21 21:12 Atorvastatin 40 Mg Tab PO Not Given QHS RUBY Bisacodyl 10 mg 11/12/21 19:10 Bisacodyl [address] QDAY PRN Constipation Clopidogrel Bisulfate 75 mg 11/13/21 10:00 11/13/21 10:05 Clopidogrel 75 Mg Tab PO Not Given QDAY [facility] Dextrose 0 ml 11/13/21 07:05 Dextrose 10% *Hypoglycemia IV PRN PRN Hypoglycemia Hydromorphone HCl 0.5 mg 11/12/21 19:10 Hydromorphone 1 Mg/1 Ml Inj IV Q23H PRN Pain , Severe (7-10) Dextrose 1,000 mls @ 100 mls/hr 11/12/21 18:00 11/13/21 21:13 D10w IV 100 mls/hr DIRECT RUBY Administration Magnesium Hydroxide 30 ml 11/12/21 19:10 Magnesium Hydroxide (Mom) Oral Liqd Udc PO Q4H PRN Constipation Metoclopramide HCl 10 mg 11/12/21 19:10 Metoclopramide 10 Mg Tab PO Q6H PRN Nausea And Vomiting Ondansetron HCl 4 mg 11/12/21 19:10 Ondansetron 4 Mg/2 Ml Inj IV Q8H PRN Nausea And Vomiting Oxycodone/Acetaminophen 1 tab 11/12/21 19:10 Oxycodone /Acetaminophen 5-325mg Tab PO Q16H PRN Pain, Moderate (4-6) Promethazine HCl 25 mg 11/12/21 19:10 Promethazine [address] Q6H PRN Nausea And Vomiting Sodium Chloride 10 ml 11/12/21 19:10 11/13/21 21:16 Sodium Chloride 0.9% 10 Ml Flush Syringe IV 10 ml PRN PRN Administration LINE FLUSH Nutrition/Malnutrition Assess - Dietary Evaluation Nutrition/Malnutrition Findings: Nutrition Notes Start: 11/13/21 13:00 Freq: Status: Active Protocol: Document 11/13/21 13:00 ANEESH (Rec: 11/13/21 13:19 ANEESH [id number]) Nutrition Notes Need for Assessment generated from: MD Order Initial or Follow up Assessment Current Diagnosis Stroke Other Pertinent Diagnosis Oropharyngeal Dysphagia, Disartria, R-hemiparesis, Debility, Hypoglycemia. Current Diet NPO (since 11/12 18:07). Labs/Tests 11/12: Na 133, Cl 96.7. Pertinent Medications 11/13: D10w 1000 ml @ 100 ml/ hr, others nutritionally unremarkable. 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 Weight Status Overweight Subjective/Other Information RD consult for dietary supplementation assessment. Pt currently on NPO. Pt presents oropharyngeal dysphagia, secondary to CVA, and requires BOILER WELDER evaluation, still pending. I don't recommend Oral Supplements at the time. Pt has missing teeth, according to Physical Assessment History notes. Percent of energy/protein needs met: Pt currently on NPO. Burn Absent Trauma Absent GI Symptoms Other Difficulty In Swallowing Food Allergy No Skin Integrity/Comment Assessment WNL. Current % PO Other #1 Nutrition Diagnosis Swallowing difficulty Comments: Proper diagnosis still pending for BOILER WELDER evaluation. Etiology CVA As Evidenced by Signs and Symptoms Oropharyngeal Dysphagia. Is patient on ventilator? No Is Patient Ambulatory and/or Out of Bed Yes REE-([place]-ambulatory/OOB) [ 1941.875 [id number]] Kcal/Kg value to use for calculation 22 Approximate Energy Requirements Using 1663 kcal/Kg Calculation Used for Recommendations Kcal/kg Additional Notes Protein: 0.8-1 g/Kg ABW; 61-76 g/day. Fluids: 1 ml/Kcal, or as per MD. Nutrition Intervention Change Diet Order: When pertinent advance to modified PO diet, as per BOILER WELDER recommendations. Add Supplement/Snack (indicate name/kcal Not Recommended at the time. /protein ) Goal #1 Facilitate PO intake of meals with mechanical modification during LOS. Goal #2 Maintain body weight within +/ -3% of admission body weight during LOS. Follow-Up By: 11/15/21 Additional Comments When pertinent, start monitoring food tolerance, %PO intake of meals, and BM.
--- NOTE | 2021-11-14 12:46 | Consultation ---
History of Present Illness Consult date: 11/14/21 Reason for Consult: CVA Chief complaint: The patient comes in for discussion of CVA - new onset per the Sister new speech issues and confusion , old CVA . No seizures . Past History Past Medical History: stroke Past Surgical History: No surgical history, Other (Reviewed) Social history: single, lives with family Family history: hypertension Medications and Allergies Allergies Allergy/AdvReac Type Severity Reaction Status Date / Time No Known Allergies Allergy Unverified 11/12/21 17:19 Home Medications Medication Instructions Recorded Confirmed Last Taken Type No Known Home Medications [No 11/14/21 11/14/21 Unknown History Reported Home Medications] Active Meds: Active Medications Acetaminophen (Acetaminophen 325 Mg Tab) 650 mg PO Q4H PRN PRN Reason: Pain, Mild (1-3) Aspirin (Aspirin 325 Mg Tab) 325 mg PO QDAY [facility] Last Admin: 11/13/21 10:04 Dose: Not Given Atorvastatin Calcium (Atorvastatin 40 Mg Tab) 40 mg PO QHS [facility] Last Admin: 11/13/21 21:12 Dose: Not Given Bisacodyl (Bisacodyl 10 Mg Rect Supp) 10 mg UT QDAY PRN PRN Reason: Constipation Clopidogrel Bisulfate (Clopidogrel 75 Mg Tab) 75 mg PO QDAY [facility] Last Admin: 11/13/21 10:05 Dose: Not Given Dextrose (Dextrose 10% *Hypoglycemia) 0 ml IV PRN PRN PRN Reason: Hypoglycemia Hydromorphone HCl (Hydromorphone 1 Mg/1 Ml Inj) 0.5 mg IV Q23H PRN PRN Reason: Pain , Severe (7-10) Dextrose (D10w) 1,000 mls @ 100 mls/hr IV DIRECT [facility] Last Admin: 11/13/21 21:13 Dose: 100 mls/hr Magnesium Hydroxide (Magnesium Hydroxide (Mom) Oral Liqd Udc) 30 ml PO Q4H PRN PRN Reason: Constipation Metoclopramide HCl (Metoclopramide 10 Mg Tab) 10 mg PO Q6H PRN PRN Reason: Nausea And Vomiting Ondansetron HCl (Ondansetron 4 Mg/2 Ml Inj) 4 mg IV Q8H PRN PRN Reason: Nausea And Vomiting Oxycodone/Acetaminophen (Oxycodone /Acetaminophen 5-325mg Tab) 1 tab PO Q16H PRN PRN Reason: Pain, Moderate (4-6) Promethazine HCl (Promethazine 25 Mg Rect Supp) 25 mg UT Q6H PRN PRN Reason: Nausea And Vomiting Sodium Chloride (Sodium Chloride 0.9% 10 Ml Flush Syringe) 10 ml IV PRN PRN PRN Reason: LINE FLUSH Last Admin: 11/13/21 21:16 Dose: 10 ml Physical Examination - Vital Signs Vital Signs: Vital Signs Pulse Resp Pulse Ox 83 19 79 L 11/12/21 17:09 11/12/21 17:09 11/12/21 17:09 - Physical Exam Narrative exam: The patient is alert , old right hemiparesis , speech is dysarthric . Gait is not tested . Results - Laboratory Findings CBC and BMP: 11/12/21 16:48 11/12/21 16:48 Abnormal Lab Findings: Abnormal Labs 11/12/21 11/12/21 11/12/21 16:48 16:48 16:48 MCV 81 L MCHC 35 H Seg Neutrophils % 76.6 H Thrombin Time 14.6 L Sodium 133 L Chloride 96.7 L POC Glucose Ammonia Albumin 3.6 L Ur Specific [place] 11/12/21 11/12/21 11/12/21 16:48 17:12 18:06 MCV MCHC Seg Neutrophils % Thrombin Time Sodium Chloride POC Glucose 61 L Ammonia 12.0 L Albumin Ur Specific [place] 1.060 H 11/12/21 11/13/21 11/13/21 23:01 07:29 15:47 MCV MCHC Seg Neutrophils % Thrombin Time Sodium Chloride POC Glucose 118 H 148 H 125 H Ammonia Albumin Ur Specific [place] Assessment and Plan 1. CVA ( new lessions- appear embolic superimposed over the old ones ). 2. Consider underlying intermittent Atrial Fibrillation . 3. Consult Cardiology for Out Patient Workup . 4. Agree with ASA and Plavix for now . 5. Reviewed MRI Brain with Sister and discussed Risk of Bleed . Call me with Questions . Dr. Jackman
[2021-11-14] MEDS: ASPIRIN 325 MG TAB PO SCH (16:20)
--- NOTE | 2021-11-14 16:39 | XRay Report ---
ABDOMEN 1 VIEW INDICATION / CLINICAL INFORMATION: dobhoff placement. COMPARISON: None available. FINDINGS: Weighted tip enteric catheter projects in the left mainstem bronchus. Recommend repositioning and adri maging prior to use. Notification: Technologist reported findings to patient's nurse and feeding tube has been removed. Signer Name: Demetrius Arechiga MD Signed: 11/14/2021 4:34 PM Workstation Name: [email or web address]
[2021-11-14] MEDS: CLOPIDOGREL 75 MG TAB PO SCH (16:50)
[2021-11-14] MEDS: DEXTROSE 10% IN WATER 1,000 ML IV SCH (23:15)
[2021-11-15] MEDS: ASPIRIN 325 MG TAB PO SCH (11:26)
[2021-11-15] MEDS: CLOPIDOGREL 75 MG TAB PO SCH (11:26)
--- NOTE | 2021-11-15 11:28 | Progress Note ---
Assessment and Plan Assessment and plan: 61 YO Male with Vascular Dementia, Cerebral Atherosclerosis, CVA presents to ED for evaluation of CVA patient found to have clinical symptoms consistent with CVA complicated by dysphagia, dysarthria. Patient also appears to have expressive aphasia. Patient also found to have hypoglycemia and was treated with dextrose therapy with mild improvement in symptoms. Patient admitted to telemetry and initiated on stroke protocol. Acute CVA with right hemiparesis Expressive aphasia Dysarthria Oropharyngeal dysphagia Debility Hypoglycemia 11/13/2021. Continue secondary prevention with aspirin and Lipitor. Check MRI brain and echocardiogram. CTA of head and neck are negative. Await neurology c onsultation. Await PT and ST evaluations 11/14/2021. Continue secondary prevention with aspirin and Lipitor. MRI reveals a few small scattered areas of ischemia in the area of the corpus callosum left foot of the midline and minimal involvement in the ganglial capsular region on the right which could represent embolic phenomena. No focal mass, acute hemorrhage or hydrocephalus. No acute large territorial infarct seen. Echocardiogram did not reveal thrombi/emboli and no PFO. Physical therapy recommends subacute rehab. Speech therapy did not evaluate the patient yesterday. Await speech therapy evaluation to determine if patient will need Dobbhoff tube feeding. Continue D10 IV fluid for now 11/15/2021. Speech therapy reports patient is aspiration risk. Patient exhibits a pharyngeal phase dysphagia complicated by a swallowing reflex delay. We will consult GI for PEG tube placement. Placed DHT for now and consult dietitian for tube feeding History Interval history: No new issues overnight. Hospitalist Physical - Constitutional Vitals: Temp Pulse Resp BP Pulse Ox 97.8 F 70 18 155/77 99 11/15/21 08:18 11/15/21 08:18 11/15/21 08:18 11/15/21 08:18 11/15/21 08:18 General appearance: Present: mild distress - EENT Eyes: Present: PERRL, EOM intact ENT: hearing intact, clear oral mucosa, dentition normal - Neck Neck: Present: supple, normal ROM - Respiratory Respiratory effort: normal Respiratory: bilateral: CTA - Cardiovascular Rhythm: regular Heart Sounds: Present: S1 & S2. Absent: gallop, rub - Extremities Extremities: no ischemia, No edema, Full ROM - Abdominal General gastrointestinal: soft, non-tender, non-distended, normal bowel sounds - Integumentary Integumentary: Present: clear, warm, dry - Neurologic Neurologic: CNII-XII intact, moves all extremities HEART Score - HEART Score Troponin: Troponin T < 0.010 ng/mL (0.00-0.029) 11/12/21 16:48 Results - Labs CBC & Chem 7: 11/12/21 16:48 11/12/21 16:48 Labs: Laboratory Last Values WBC 9.4 K/mm3 (4.5-11.0) 11/12/21 16:48 RBC 4.53 M/mm3 (3.65-5.03) 11/12/21 16:48 Hgb 12.7 gm/dl (11.8-15.2) 11/12/21 16:48 Hct 36.7 % (35.5-45.6) 11/12/21 16:48 MCV 81 fl (84-94) L 11/12/21 16:48 MCH 28 pg (28-32) 11/12/21 16:48 MCHC 35 % (32-34) H 11/12/21 16:48 RDW 13.4 % (13.2-15.2) 11/12/21 16:48 Plt Count 294 K/mm3 (140-440) 11/12/21 16:48 Lymph % (Auto) 15.1 % (13.4-35.0) 11/12/21 16:48 [place] % (Auto) 7.2 % (0.0-7.3) 11/12/21 16:48 Eos % (Auto) 0.8 % (0.0-4.3) 11/12/21 16:48 Baso % (Auto) 0.3 % (0.0-1.8) 11/12/21 16:48 Lymph # (Auto) 1.4 K/mm3 (1.2-5.4) 11/12/21 16:48 [place] # (Auto) 0.7 K/mm3 (0.0-0.8) 11/12/21 16:48 Eos # (Auto) 0.1 K/mm3 (0.0-0.4) 11/12/21 16:48 Baso # (Auto) 0.0 K/mm3 (0.0-0.1) 11/12/21 16:48 Seg Neutrophils % 76.6 % (40.0-70.0) H 11/12/21 16:48 Seg Neutrophils # 7.2 K/mm3 (1.8-7.7) 11/12/21 16:48 PT 13.5 Sec. (12.2-14.9) 11/12/21 16:48 INR 0.93 (0.87-1.13) 11/12/21 16:48 APTT 33.5 Sec. (24.2-36.6) 11/12/21 16:48 Thrombin Time 14.6 Sec. (15.1-19.6) L 11/12/21 16:48 Sodium 133 mmol/L (137-145) L 11/12/21 16:48 Potassium 4.0 mmol/L (3.6-5.0) 11/12/21 16:48 Chloride 96.7 mmol/L (98-107) L 11/12/21 16:48 Carbon Dioxide 25 mmol/L (22-30) 11/12/21 16:48 Anion Gap 15 mmol/L 11/12/21 16:48 BUN 11 mg/dL (9-20) 11/12/21 16:48 Creatinine 0.9 mg/dL (0.8-1.3) 11/12/21 16:48 Estimated GFR > 60 ml/min 11/12/21 16:48 BUN/Creatinine Ratio 12 % 11/12/21 16:48 Glucose 79 mg/dL (75-100) 11/12/21 16:48 POC Glucose 99 mg/dL (70-105) 11/15/21 08:18 Calcium 9.0 mg/dL (8.4-10.2) 11/12/21 16:48 Magnesium 1.80 mg/dL (1.7-2.3) 11/12/21 16:48 Total Bilirubin 0.50 mg/dL (0.1-1.2) 11/12/21 16:48 AST 18 units/L (5-40) 11/12/21 16:48 ALT 25 units/L (7-56) 11/12/21 16:48 Alkaline Phosphatase 64 units/L (35-129) 11/12/21 16:48 Ammonia 12.0 umol/L (25-60) L 11/12/21 16:48 Total Creatine Kinase 93 units/L (55-170) 11/12/21 16:48 Total Creatine Kinase 93 units/L (55-170) 11/12/21 16:48 CK-MB (CK-2) < 1.0 ng/mL (0.0-4.0) 11/12/21 16:48 CK-MB (CK-2) Rel Index 1.0 (0-4) 11/12/21 16:48 Troponin T < 0.010 ng/mL (0.00-0.029) 11/12/21 16:48 Total Protein 6.5 g/dL (6.3-8.2) 11/12/21 16:48 Albumin 3.6 g/dL (3.9-5) L 11/12/21 16:48 Albumin/Globulin Ratio 1.2 % 11/12/21 16:48 TSH 1.040 mlU/mL (0.270-4.200) 11/12/21 16:48 Urine Color Yellow (Yellow) 11/12/21 18:06 Urine Turbidity Clear (Clear) 11/12/21 18:06 Urine pH 6.0 (5.0-7.0) 11/12/21 18:06 Ur Specific [place] 1.060 (1.003-1.030) H 11/12/21 18:06 Urine Protein <15 mg/dl mg/dL (Negative) 11/12/21 18:06 Urine Glucose (UA) Neg mg/dL (Negative) 11/12/21 18:06 Urine Ketones Tr mg/dL (Negative) 11/12/21 18:06 Urine Blood Neg (Negative) 11/12/21 18:06 Urine Nitrite Neg (Negative) 11/12/21 18:06 Urine Bilirubin Neg (Negative) 11/12/21 18:06 Urine Urobilinogen 4.0 mg/dL (<2.0) 11/12/21 18:06 Ur Leukocyte Esterase Neg (Negative) 11/12/21 18:06 Urine WBC (Auto) < 1.0 /HPF (0.0-6.0) 11/12/21 18:06 Urine RBC (Auto) 1.0 /HPF (0.0-6.0) 11/12/21 18:06 U Epithel Cells (Auto) 3.0 /HPF (0-13.0) 11/12/21 18:06 Urine Mucus 1+ /HPF 11/12/21 18:06 Walker/IV: Voiding Method External Female Catheter Active Medications - Current Medications Current Medications: Generic Name Dose Route Start Last Admin Trade Name Freq PRN Reason Stop Dose Admin Acetaminophen 650 mg 11/12/21 19:10 Acetaminophen 325 Mg Tab PO Q4H PRN Pain, Mild (1-3) Aspirin 325 mg 11/13/21 10:00 11/15/21 11:26 Aspirin 325 Mg Tab PO Not Given QDAY [facility] Atorvastatin Calcium 40 mg 11/12/21 22:00 11/14/21 21:46 Atorvastatin 40 Mg Tab PO Not Given QHS [facility] Bisacodyl 10 mg 11/12/21 19:10 Bisacodyl 10 Mg Rect Supp [place] QDAY PRN Constipation Clopidogrel Bisulfate 75 mg 11/13/21 10:00 11/15/21 11:26 Clopidogrel 75 Mg Tab PO Not Given QDAY [facility] Dextrose 0 ml 11/13/21 07:05 Dextrose 10% *Hypoglycemia IV PRN PRN Hypoglycemia Hydromorphone HCl 0.5 mg 11/12/21 19:10 Hydromorphone 1 Mg/1 Ml Inj IV Q23H PRN Pain , Severe (7-10) Dextrose 1,000 mls @ 100 mls/hr 11/12/21 18:00 11/14/21 23:15 D10w IV 100 mls/hr DIRECT RUBY Administration Magnesium Hydroxide 30 ml 11/12/21 19:10 Magnesium Hydroxide (Mom) Oral Liqd Udc PO Q4H PRN Constipation Metoclopramide HCl 10 mg 11/12/21 19:10 Metoclopramide 10 Mg Tab PO Q6H PRN Nausea And Vomiting Ondansetron HCl 4 mg 11/12/21 19:10 Ondansetron 4 Mg/2 Ml Inj IV Q8H PRN Nausea And Vomiting Oxycodone/Acetaminophen 1 tab 11/12/21 19:10 Oxycodone /Acetaminophen 5-325mg Tab PO Q16H PRN Pain, Moderate (4-6) Promethazine HCl 25 mg 11/12/21 19:10 Promethazine 25 Mg Rect Supp [place] Q6H PRN Nausea And Vomiting Sodium Chloride 10 ml 11/12/21 19:10 11/13/21 21:16 Sodium Chloride 0.9% 10 Ml Flush Syringe IV 10 ml PRN PRN Administration LINE FLUSH Nutrition/Malnutrition Assess - Dietary Evaluation Nutrition/Malnutrition Findings: Nutrition Notes Start: 11/13/21 13:00 Freq: Status: Active Protocol: Document 11/14/21 14:12 ANEESH (Rec: 11/14/21 14:43 ANEESH [id number]) Nutrition Notes Need for Assessment generated from: MD Order Initial or Follow up Reassessment Current Diagnosis Stroke Other Pertinent Diagnosis Oropharyngeal Dysphagia, Disartria, R-hemiparesis, Debility, Hypoglycemia. Current Diet TF-Jevity 1.2 [place] @ 57 ml/hr ( since D 11/14). Labs/Tests 11/14: N/A. Pertinent Medications 11/14: D10w 1000 ml @ 100 ml/ hr, others nutritionally unremarkable. Height 5 ft 6 in Weight 75.6 kg [place] Body Weight (kg) 64.54 BMI 26.9 Weight change and time frame No body weight change reported in 1 day. Weight Status Overweight Subjective/Other Information RD consult for write/manage TF . HOT PACKER note 11/14: Swallowing evaluation has been conducted. Patient demonstrates prolonged oral transit time with a significantly delayed swallow reflex. There is evidence of a wet vocal quality indicative of laryngeal penetration with thins. No coughing was noted; however due to the factors above, the patient could potentially be at risk for aspiration. Recommend a DOBHOFF tube. Will continue to work with the patient to determine a potential for po. Consulted with the nurse in regard to the above information. Percent of energy/protein needs met: Prescribed TF-Jevity 1.2 Bijan @ 57 ml/hr provides for energy/ protein needs (1,645 Kcal/76 g ) during LOS, 99% Kcal; 100% AA. Burn Absent Trauma Absent GI Symptoms Other Difficulty In Swallowing Food Allergy No Skin Integrity/Comment Assessment WNL. Current % PO Other #1 Nutrition Diagnosis Swallowing difficulty Comments: HOT PACKER note 11/14: Swallowing evaluation has been conducted. Patient demonstrates prolonged oral transit time with a significantly delayed swallow reflex. There is evidence of a wet vocal quality indicative of laryngeal penetration with thins. No coughing was noted; however due to the factors above, the patient could potentially be at risk for aspiration. Recommend a DOBHOFF tube. Will continue to work with the patient to determine a potential for po. Consulted with the nurse in regard to the above information. Diagnosis Progress(for reassessment Continues documentation) Is patient on ventilator? No Is Patient Ambulatory and/or Out of Bed Yes REE-([place]-St. Jeor-ambulatory/OOB) [ 1941.875 [id number]] Kcal/Kg value to use for calculation 22 Approximate Energy Requirements Using 1663 kcal/Kg Calculation Used for Recommendations Kcal/kg Additional Notes Protein: 0.8-1 g/Kg ABW; 61-76 g/day. Fluids: 1 ml/Kcal, or as per MD. Nutrition Intervention Nutrition Support: Start TF-Jevity 1.2 [place] @ 57 ml/hr. Flush: 100 ml water Q 4 hr, or as per MD. Kcal 1,645 Protein (gm) 76 Carbohydrates (gm) 232 Fat (gm) 54 Fluid (mL) 1,106 Fiber (gm) 25 % RDI: 99% Kcal; 100% AA. Goal #1 Provide at least 75% of energy /protein needs through Enteral Feeding during LOS. Goal #2 Maintain body weight within +/ -3% of admission body weight during LOS. Follow-Up By: 11/16/21 Additional Comments Start monitoring TF tolerance and BM.
[2021-11-15] MEDS: DEXTROSE 10% *Hypoglycemia IV PRN (14:41)
--- NOTE | 2021-11-15 15:41 | Gastroenterology Consultation ---
History of Present Illness - Reason for Consult Consult date: 11/15/21 dysphagia, PEG tube Requesting physician: CHERYLE SANCHEZ - History of Present Illness This is a 61 yo male with dementia, CVA, and HTN admitted for AMS/CVA complicated by dysphagia and dyarthria. Speech has evaluated and recommend NPO due to aspiration risks. Multiple attempts for dobhoff but unsuccessful. ASA and plavix have been ordered but not given during this admission. Spoke with sister and no h/o EGD or abdominal surgery. She would like to proceed with PEG placement. Medication list reviewed. Past History Past Medical History: stroke Past Surgical History: No surgical history, Other (Reviewed) Social history: single, lives with family Family history: hypertension Medications and Allergies Allergies Allergy/AdvReac Type Severity Reaction Status Date / Time No Known Allergies Allergy Unverified 11/12/21 17:19 Home Medications Medication Instructions Recorded Confirmed Last Taken Type Amlodipine Besylate [Norvasc] 10 mg PO DAILY 11/14/21 11/14/21 Unknown History Atorvastatin [Lipitor Tab] 40 mg PO QHS 11/14/21 11/14/21 Unknown History Clopidogrel [Plavix] 75 mg PO QDAY 11/14/21 11/14/21 Unknown History FLUoxetine HCL [Prozac] 10 mg PO DAILY 11/14/21 11/14/21 Unknown History hydroCHLOROthiazide [Hctz] 12.5 mg PO QDAY 11/14/21 11/14/21 Unknown History lisinopriL [Lisinopril] 20 mg PO DAILY 11/14/21 11/14/21 Unknown History Active Meds: Active Medications Acetaminophen (Acetaminophen 325 Mg Tab) 650 mg PO Q4H PRN PRN Reason: Pain, Mild (1-3) Aspirin (Aspirin 325 Mg Tab) 325 mg PO QDAY [facility] Last Admin: 11/15/21 11:26 Dose: Not Given Atorvastatin Calcium (Atorvastatin 40 Mg Tab) 40 mg PO QHS [facility] Last Admin: 11/14/21 21:46 Dose: Not Given Bisacodyl (Bisacodyl 10 Mg Rect Supp) 10 mg [place] QDAY PRN PRN Reason: Constipation Clopidogrel Bisulfate (Clopidogrel 75 Mg Tab) 75 mg PO QDAY [facility] Last Admin: 11/15/21 11:26 Dose: Not Given Dextrose (Dextrose 10% *Hypoglycemia) 0 ml IV PRN PRN PRN Reason: Hypoglycemia Last Admin: 11/15/21 14:41 Dose: 250 ml Hydromorphone HCl (Hydromorphone 1 Mg/1 Ml Inj) 0.5 mg IV Q23H PRN PRN Reason: Pain , Severe (7-10) Dextrose (D10w) 1,000 mls @ 100 mls/hr IV DIRECT RUBY Last Admin: 11/14/21 23:15 Dose: 100 mls/hr Magnesium Hydroxide (Magnesium Hydroxide (Mom) Oral Liqd Udc) 30 ml PO Q4H PRN PRN Reason: Constipation Metoclopramide HCl (Metoclopramide 10 Mg Tab) 10 mg PO Q6H PRN PRN Reason: Nausea And Vomiting Ondansetron HCl (Ondansetron 4 Mg/2 Ml Inj) 4 mg IV Q8H PRN PRN Reason: Nausea And Vomiting Oxycodone/Acetaminophen (Oxycodone /Acetaminophen 5-325mg Tab) 1 tab PO Q16H PRN PRN Reason: Pain, Moderate (4-6) Promethazine HCl (Promethazine 25 Mg Rect Supp) 25 mg [place] Q6H PRN PRN Reason: Nausea And Vomiting Sodium Chloride (Sodium Chloride 0.9% 10 Ml Flush Syringe) 10 ml IV PRN PRN PRN Reason: LINE FLUSH Last Admin: 11/13/21 21:16 Dose: 10 ml Review of Systems - Review of Systems ROS unobtainable: due to mental status Exam - Constitutional Vital Signs: Temp Pulse Resp BP Pulse Ox 97.6 F 64 18 130/80 97 11/15/21 11:30 11/15/21 12:00 11/15/21 12:00 11/15/21 11:30 11/15/21 12:00 General appearance: no acute distress - EENT ENT: hearing decreased - Neck Neck: supple - Respiratory Respiratory effort: normal - Cardiovascular Rhythm: regular Heart Sounds: Present: S1 & S2 - Gastrointestinal General gastrointestinal: Present: soft, non-tender, non-distended - Integumentary Integumentary: Present: clear, warm - Neurologic Neurological: disoriented - Labs CBC & Chem 7: 11/15/21 18:53 11/15/21 18:53 Lab Results: Laboratory Results - last 24 hr 11/14/21 11/14/21 11/15/21 16:15 21:47 08:18 POC Glucose 179 H 154 H 99 11/15/21 11:31 POC Glucose 90 Assessment and Plan # Neurogenic dysphagia - failed swallow evaluation with speech. - spoke with patient's sister and discussed EGD/PEG including risks of potential complications. Would like to proceed. - MAR reviewed and although ASA and plavix have been ordered but not been given. # Vascular dementia # CVA - neurology consulted. Rec - Will plan for EGD/PEG tomorrow. - keep NPO - hold anticoagulation. - ordered labs. - Patient Problems (1) Dysphagia Current Visit: Yes Status: Acute Qualifiers: Dysphagia type: oropharyngeal phase Qualified Code(s): R13.12 - Dysphagia, oropharyngeal phase
[2021-11-15] MEDS: DEXTROSE 10% IN WATER 1,000 ML IV SCH (16:31)
[2021-11-15 19:33] LABS: Hematocrit 39.6 % (35.5-45.6); Hemoglobin 13.6 gm/dl (11.8-15.2); Mean Corpuscular HGB Conc 34 % (32-34); Mean Corpuscular Volume 81 fl (84-94); Platelet Count 333 K/mm3 (140-440); Red Blood Count 4.89 M/mm3 (3.65-5.03); Red Cell Distribution Width 13.5 % (13.2-15.2)
[2021-11-15 19:49] LABS: INR 0.92 (0.87-1.13)
[2021-11-15 19:51] LABS: BUN/Creatinine Ratio 4; Blood Urea Nitrogen 4 mg/dL (9-20); Calcium 9.2 mg/dL (8.4-10.2); Hemolysis Index 7
[2021-11-15] MEDS ORDERED: POTASSIUM CHLORIDE 10 MEQ 10 MEQ/100 ML BAG IV ONE (22:57)
[2021-11-16] MEDS: DEXTROSE 10% *Hypoglycemia IV PRN (08:49)
[2021-11-16] MEDS: CLOPIDOGREL 75 MG TAB PO SCH (09:11)
[2021-11-16] MEDS: ASPIRIN 325 MG TAB PO SCH (09:11)
[2021-11-16] MEDS: DEXTROSE 10% IN WATER 1,000 ML IV SCH (09:11)
--- NOTE | 2021-11-16 10:39 | Progress Note ---
Assessment and Plan Assessment and plan: 61 YO Male with Vascular Dementia, Cerebral Atherosclerosis, CVA presents to ED for evaluation of CVA patient found to have clinical symptoms consistent with CVA complicated by dysphagia, dysarthria. Patient also appears to have expressive aphasia. Patient also found to have hypoglycemia and was treated with dextrose therapy with mild improvement in symptoms. Patient admitted to telemetry and initiated on stroke protocol. Acute CVA with right hemiparesis Expressive aphasia Dysarthria Oropharyngeal dysphagia Debility Hypoglycemia 11/13/2021. Continue secondary prevention with aspirin and Lipitor. Check MRI brain and echocardiogram. CTA of head and neck are negative. Await neurology c onsultation. Await PT and ST evaluations 11/14/2021. Continue secondary prevention with aspirin and Lipitor. MRI reveals a few small scattered areas of ischemia in the area of the corpus callosum left foot of the midline and minimal involvement in the ganglial capsular region on the right which could represent embolic phenomena. No focal mass, acute hemorrhage or hydrocephalus. No acute large territorial infarct seen. Echocardiogram did not reveal thrombi/emboli and no PFO. Physical therapy recommends subacute rehab. Speech therapy did not evaluate the patient yesterday. Await speech therapy evaluation to determine if patient will need Dobbhoff tube feeding. Continue D10 IV fluid for now 11/15/2021. Speech therapy reports patient is aspiration risk. Patient exhibits a pharyngeal phase dysphagia complicated by a swallowing reflex delay. We will consult GI for PEG tube placement. Placed DHT for now and consult dietitian for tube feeding 11/16/2021. PEG placement per GI today. Pt to d/c home with HH. Family education with TF. Also, CM to arrrange for supplies. History Interval history: No new issues overnight. Hospitalist Physical - Constitutional Vitals: Temp Pulse Resp BP Pulse Ox 98.7 F 73 18 143/84 99 11/16/21 07:44 11/16/21 07:44 11/16/21 07:44 11/16/21 07:44 11/16/21 07:44 General appearance: Present: no acute distress - EENT Eyes: Present: PERRL, EOM intact ENT: hearing intact, clear oral mucosa, dentition normal - Neck Neck: Present: supple, normal ROM - Respiratory Respiratory effort: normal Respiratory: bilateral: CTA - Cardiovascular Rhythm: regular Heart Sounds: Present: S1 & S2. Absent: gallop, rub - Extremities Extremities: no ischemia, No edema, Full ROM - Abdominal General gastrointestinal: soft, non-tender, non-distended, normal bowel sounds - Integumentary Integumentary: Present: clear, warm, dry - Neurologic Neurologic: CNII-XII intact, moves all extremities HEART Score - HEART Score Troponin: Troponin T < 0.010 ng/mL (0.00-0.029) 11/12/21 16:48 Results - Labs CBC & Chem 7: 11/15/21 18:53 11/15/21 18:53 Labs: Laboratory Last Values WBC 12.3 K/mm3 (4.5-11.0) H 11/15/21 18:53 RBC 4.89 M/mm3 (3.65-5.03) 11/15/21 18:53 Hgb 13.6 gm/dl (11.8-15.2) 11/15/21 18:53 Hct 39.6 % (35.5-45.6) 11/15/21 18:53 MCV 81 fl (84-94) L 11/15/21 18:53 MCH 28 pg (28-32) 11/15/21 18:53 MCHC 34 % (32-34) 11/15/21 18:53 RDW 13.5 % (13.2-15.2) 11/15/21 18:53 Plt Count 333 K/mm3 (140-440) 11/15/21 18:53 Lymph % (Auto) 15.1 % (13.4-35.0) 11/12/21 16:48 [place] % (Auto) 7.2 % (0.0-7.3) 11/12/21 16:48 Eos % (Auto) 0.8 % (0.0-4.3) 11/12/21 16:48 Baso % (Auto) 0.3 % (0.0-1.8) 11/12/21 16:48 Lymph # (Auto) 1.4 K/mm3 (1.2-5.4) 11/12/21 16:48 [place] # (Auto) 0.7 K/mm3 (0.0-0.8) 11/12/21 16:48 Eos # (Auto) 0.1 K/mm3 (0.0-0.4) 11/12/21 16:48 Baso # (Auto) 0.0 K/mm3 (0.0-0.1) 11/12/21 16:48 Seg Neutrophils % 76.6 % (40.0-70.0) H 11/12/21 16:48 Seg Neutrophils # 7.2 K/mm3 (1.8-7.7) 11/12/21 16:48 PT 13.3 Sec. (12.2-14.9) 11/15/21 18:53 INR 0.92 (0.87-1.13) 11/15/21 18:53 APTT 33.5 Sec. (24.2-36.6) 11/12/21 16:48 Thrombin Time 14.6 Sec. (15.1-19.6) L 11/12/21 16:48 Sodium 137 mmol/L (137-145) 11/15/21 18:53 Potassium 3.1 mmol/L (3.6-5.0) L D 11/15/21 18:53 Chloride 97.4 mmol/L (98-107) L 11/15/21 18:53 Carbon Dioxide 27 mmol/L (22-30) 11/15/21 18:53 Anion Gap 16 mmol/L 11/15/21 18:53 BUN 4 mg/dL (9-20) L 11/15/21 18:53 Creatinine 0.9 mg/dL (0.8-1.3) 11/15/21 18:53 Estimated GFR > 60 ml/min 11/15/21 18:53 BUN/Creatinine Ratio 4 % 11/15/21 18:53 Glucose 130 mg/dL (75-100) H 11/15/21 18:53 POC Glucose 118 mg/dL (70-105) H 11/16/21 07:45 Calcium 9.2 mg/dL (8.4-10.2) 11/15/21 18:53 Magnesium 1.80 mg/dL (1.7-2.3) 11/12/21 16:48 Total Bilirubin 0.50 mg/dL (0.1-1.2) 11/12/21 16:48 AST 18 units/L (5-40) 11/12/21 16:48 ALT 25 units/L (7-56) 11/12/21 16:48 Alkaline Phosphatase 64 units/L (35-129) 11/12/21 16:48 Ammonia 12.0 umol/L (25-60) L 11/12/21 16:48 Total Creatine Kinase 93 units/L (55-170) 11/12/21 16:48 Total Creatine Kinase 93 units/L (55-170) 11/12/21 16:48 CK-MB (CK-2) < 1.0 ng/mL (0.0-4.0) 11/12/21 16:48 CK-MB (CK-2) Rel Index 1.0 (0-4) 11/12/21 16:48 Troponin T < 0.010 ng/mL (0.00-0.029) 11/12/21 16:48 Total Protein 6.5 g/dL (6.3-8.2) 11/12/21 16:48 Albumin 3.6 g/dL (3.9-5) L 11/12/21 16:48 Albumin/Globulin Ratio 1.2 % 11/12/21 16:48 TSH 1.040 mlU/mL (0.270-4.200) 11/12/21 16:48 Urine Color Yellow (Yellow) 11/12/21 18:06 Urine Turbidity Clear (Clear) 11/12/21 18:06 Urine pH 6.0 (5.0-7.0) 11/12/21 18:06 Ur Specific [place] 1.060 (1.003-1.030) H 11/12/21 18:06 Urine Protein <15 mg/dl mg/dL (Negative) 11/12/21 18:06 Urine Glucose (UA) Neg mg/dL (Negative) 11/12/21 18:06 Urine Ketones Tr mg/dL (Negative) 11/12/21 18:06 Urine Blood Neg (Negative) 11/12/21 18:06 Urine Nitrite Neg (Negative) 11/12/21 18:06 Urine Bilirubin Neg (Negative) 11/12/21 18:06 Urine Urobilinogen 4.0 mg/dL (<2.0) 11/12/21 18:06 Ur Leukocyte Esterase Neg (Negative) 11/12/21 18:06 Urine WBC (Auto) < 1.0 /HPF (0.0-6.0) 11/12/21 18:06 Urine RBC (Auto) 1.0 /HPF (0.0-6.0) 11/12/21 18:06 U Epithel Cells (Auto) 3.0 /HPF (0-13.0) 11/12/21 18:06 Urine Mucus 1+ /HPF 11/12/21 18:06 Walker/IV: Voiding Method Condom Catheter Active Medications - Current Medications Current Medications: Generic Name Dose Route Start Last Admin Trade Name Freq PRN Reason Stop Dose Admin Acetaminophen 650 mg 11/12/21 19:10 Acetaminophen 325 Mg Tab PO Q4H PRN Pain, Mild (1-3) Aspirin 325 mg 11/13/21 10:00 11/16/21 09:11 Aspirin 325 Mg Tab PO Not Given QDAY RUBY Atorvastatin Calcium 40 mg 11/12/21 22:00 11/15/21 21:28 Atorvastatin 40 Mg Tab PO Not Given QHS RUBY Bisacodyl 10 mg 11/12/21 19:10 Bisacodyl 10 Mg Rect Supp MD QDAY PRN Constipation Clopidogrel Bisulfate 75 mg 11/13/21 10:00 11/16/21 09:11 Clopidogrel 75 Mg Tab PO Not Given QDAY RUBY Dextrose 0 ml 11/13/21 07:05 11/16/21 08:49 Dextrose 10% *Hypoglycemia IV 250 ml PRN PRN Administration Hypoglycemia Hydromorphone HCl 0.5 mg 11/12/21 19:10 Hydromorphone 1 Mg/1 Ml Inj IV Q23H PRN Pain , Severe (7-10) Dextrose 1,000 mls @ 100 mls/hr 11/12/21 18:00 11/16/21 09:11 D10w IV 100 mls/hr DIRECT RUBY Administration Sodium Chloride 1,000 mls @ 50 mls/hr 11/16/21 10:15 Nacl 0.9% 1000 Ml IV DIRECT RUBY Cefazolin Sodium 2 gm in 20 mls @ 80 mls/hr 11/16/21 11:00 Ancef/Sterile Water 2 Gm/20 Ml IV 11/16/21 23:59 PREOP NR Protocol Magnesium Hydroxide 30 ml 11/12/21 19:10 Magnesium Hydroxide (Mom) Oral Liqd Udc PO Q4H PRN Constipation Metoclopramide HCl 10 mg 11/12/21 19:10 Metoclopramide 10 Mg Tab PO Q6H PRN Nausea And Vomiting Ondansetron HCl 4 mg 11/12/21 19:10 Ondansetron 4 Mg/2 Ml Inj IV Q8H PRN Nausea And Vomiting Oxycodone/Acetaminophen 1 tab 11/12/21 19:10 Oxycodone /Acetaminophen 5-325mg Tab PO Q16H PRN Pain, Moderate (4-6) Promethazine HCl 25 mg 11/12/21 19:10 Promethazine 25 Mg Rect Supp MD Q6H PRN Nausea And Vomiting Sodium Chloride 10 ml 11/12/21 19:10 11/13/21 21:16 Sodium Chloride 0.9% 10 Ml Flush Syringe IV 10 ml PRN PRN Administration LINE FLUSH Nutrition/Malnutrition Assess - Dietary Evaluation Nutrition/Malnutrition Findings: Nutrition Notes Start: 11/13/21 13:00 Freq: Status: Active Protocol: Document 11/14/21 14:12 ANEESH (Rec: 11/14/21 14:43 ANEESH [id number]) Nutrition Notes Need for Assessment generated from: MD Order Initial or Follow up Reassessment Current Diagnosis Stroke Other Pertinent Diagnosis Oropharyngeal Dysphagia, Disartria, R-hemiparesis, Debility, Hypoglycemia. Current Diet TF-Jevity 1.2 Bijan @ 57 ml/hr ( since D 11/14). Labs/Tests 11/14: N/A. Pertinent Medications 11/14: D10w 1000 ml @ 100 ml/ hr, others nutritionally unremarkable. Height 5 ft 6 in Weight 75.6 kg [place] Body Weight (kg) 64.54 BMI 26.9 Weight change and time frame No body weight change reported in 1 day. Weight Status Overweight Subjective/Other Information RD consult for write/manage TF . PACKAGING COORDINATOR note 11/14: Swallowing evaluation has been conducted. Patient demonstrates prolonged oral transit time with a significantly delayed swallow reflex. There is evidence of a wet vocal quality indicative of laryngeal penetration with thins. No coughing was noted; however due to the factors above, the patient could potentially be at risk for aspiration. Recommend a DOBHOFF tube. Will continue to work with the patient to determine a potential for po. Consulted with the nurse in regard to the above information. Percent of energy/protein needs met: Prescribed TF-Jevity 1.2 Bijan @ 57 ml/hr provides for energy/ protein needs (1,645 Kcal/76 g ) during LOS, 99% Kcal; 100% AA. Burn Absent Trauma Absent GI Symptoms Other Difficulty In Swallowing Food Allergy No Skin Integrity/Comment Assessment WNL. Current % PO Other #1 Nutrition Diagnosis Swallowing difficulty Comments: PACKAGING COORDINATOR note 11/14: Swallowing evaluation has been conducted. Patient demonstrates prolonged oral transit time with a significantly delayed swallow reflex. There is evidence of a wet vocal quality indicative of laryngeal penetration with thins. No coughing was noted; however due to the factors above, the patient could potentially be at risk for aspiration. Recommend a DOBHOFF tube. Will continue to work with the patient to determine a potential for po. Consulted with the nurse in regard to the above information. Diagnosis Progress(for reassessment Continues documentation) Is patient on ventilator? No Is Patient Ambulatory and/or Out of Bed Yes REE-([facility]-ambulatory/OOB) [ 1941.875 [id number]] Kcal/Kg value to use for calculation 22 Approximate Energy Requirements Using 1663 kcal/Kg Calculation Used for Recommendations Kcal/kg Additional Notes Protein: 0.8-1 g/Kg ABW; 61-76 g/day. Fluids: 1 ml/Kcal, or as per MD. Nutrition Intervention Nutrition Support: Start TF-Jevity 1.2 Bijan @ 57 ml/hr. Flush: 100 ml water Q 4 hr, or as per MD. Kcal 1,645 Protein (gm) 76 Carbohydrates (gm) 232 Fat (gm) 54 Fluid (mL) 1,106 Fiber (gm) 25 % RDI: 99% Kcal; 100% AA. Goal #1 Provide at least 75% of energy /protein needs through Enteral Feeding during LOS. Goal #2 Maintain body weight within +/ -3% of admission body weight during LOS. Follow-Up By: 11/16/21 Additional Comments Start monitoring TF tolerance and BM.
[2021-11-16] MEDS ORDERED: ceFAZolin/Water 2 GM/20 ML 2 GM/20 ML SYRINGE IV NR (11:00)
--- NOTE | 2021-11-16 13:07 | Anesthesia Day of Surgery ---
Anesthesia Day of Surgery - Day of Surgery Patient Examined: Yes Patient H&P Reviewed: Yes Patient is NPO: Yes
[2021-11-16] MEDS ORDERED: propofoL 200 MG/20 ML VIAL IV ONE (13:08)
--- NOTE | 2021-11-16 13:12 | Anesthesia Consultation ---
Anesthesia Consult and Med Hx Date of service: 11/16/21 - Airway Anesthetic Teeth Evaluation: Good (Unable to fully assess) ROM Head & Neck: Adequate Mental/Hyoid Distance: Adequate Mallampati Class: Class III Intubation Access Assessment: Probably Good - Pre-Operative Health Status ASA Pre-Surgery Classification: ASA3 Proposed Anesthetic Plan: MAC - Pulmonary Hx Asthma: No COPD: No Hx Pneumonia: No - Central Nervous System CVA: Yes (Acute with hemiparesis) - Endocrine Hx End Stage Renal Disease: No - Other Systems Hx Obesity: No - Additional Comments Anesthesia Medical History Comments: History from chart
[2021-11-16] MEDS ORDERED: fentaNYL 100 MCG/2 ML INJ ONE (13:13)
--- NOTE | 2021-11-16 13:28 | Operative Report ---
Operative Report Operative Report: DOS 11/16/21 ANTIBIOTICS: 2 g ANCEF IV x 1 SURGEON: Lalit Chow MD EGD WITH PEG TUBE PLACEMENT REPORT PREOPERATIVE DIAGNOSIS and POSTOPERATIVE DIAGNOSIS: dysphagia ESTIMATED BLOOD LOSS: minimal DESCRIPTION OF PROCEDURE: A high-resolution EGD scope was passed through the oropharynx, esophagus, stomach, and second portion of duodenum. The scope was carefully withdrawn. Retroflexion was performed in the stomach. At the end of the procedure, the scope was cleaned using normal technique. Vital signs monitored continuously throughout. The stomach was transilluminated and an optimal position for the PEG tube was identified using the single poke method. The skin was infiltrated with local anesthesia and the needle and sheath were inserted through the abdomen into the stomach under direct visualization. The needle was removed and a guidewire was inserted through the sheath. The guidewire was grasped from above with a snare. It was removed completely and the PEG tube was secured to the guidewire. The guidewire and PEG tube were then pulled through the mouth and esophagus and snug to the abdominal wall. There was no evidence of bleeding. The Bolster was placed on the PEG site at 5 cm. SEDATION: Provided by Anesthesiology Services. COMPLICATIONS: None. FINDINGS: * No gross lesions of the duodenum * Minimal gastritis * Z-line irregular 38 cm from incisors * 2 cm hiatal hernia * Remainder of exam unremarkable RECOMMENDATIONS: The PEG may be used for medication and water flushes now. Tomorrow, if there are normal bowel sounds and no significant abdominal tenderness to palpation may start tube feeds
[2021-11-16] MEDS: SODIUM CHLORIDE 0.9% 1000 ML 1,000 ML IV SCH (22:12)
[2021-11-17 05:00] LABS: Basophils # (Auto) 0.1 K/mm3 (0.0-0.1); Basophils % (Auto) 0.7 % (0.0-1.8); Hematocrit 37.3 % (35.5-45.6); Hemoglobin 12.6 gm/dl (11.8-15.2); Lymphocytes # (Auto) 1.3 K/mm3 (1.2-5.4); Lymphocytes % (Auto) 9.4 % (13.4-35.0); Mean Corpuscular HGB Conc 34 % (32-34); Mean Corpuscular Volume 80 fl (84-94); Monocytes # (Auto) 0.8 K/mm3 (0.0-0.8); Monocytes % (Auto) 5.8 % (0.0-7.3); Platelet Count 308 K/mm3 (140-440); Red Blood Count 4.69 M/mm3 (3.65-5.03); Red Cell Distribution Width 13.3 % (13.2-15.2)
[2021-11-17 05:22] LABS: Blood Urea Nitrogen 5 mg/dL (9-20); Calcium 8.6 mg/dL (8.4-10.2); Hemolysis Index 5
[2021-11-17 05:24] LABS: BUN/Creatinine Ratio 7
--- NOTE | 2021-11-17 09:32 | Gastroenterology Progress Note ---
Assessment and Plan 1. Oropharyngeal dysphagia - s/p peg tube placement. external bumper loosened at bedside. start tube feedings per nutrition recommendations. post peg care daily. will sign off, please call as needed. Subjective Date of service: 11/17/21 Principal diagnosis: PEG check Interval history: s/p peg tube placement, no events overnight Objective - Constitutional Vitals: Temp Pulse Resp BP Pulse Ox 98.4 F 79 16 126/64 99 11/17/21 07:27 11/17/21 09:02 11/17/21 07:27 11/17/21 07:27 11/17/21 07:27 General appearance: no acute distress - Cardiovascular Rhythm: regular Heart Sounds: Present: S1 & S2 - Gastrointestinal General gastrointestinal: Present: other (soft, nd, peg tube site c/d/i) - Labs CBC & Chem 7: 11/17/21 04:42 11/17/21 04:42 Labs: Laboratory Results - last 24 hr 11/16/21 11/16/21 11/16/21 11:42 16:06 20:04 WBC RBC Hgb Hct MCV MCH MCHC RDW Plt Count Lymph % (Auto) [place] % (Auto) Eos % (Auto) Baso % (Auto) Lymph # (Auto) [place] # (Auto) Eos # (Auto) Baso # (Auto) Seg Neutrophils % Seg Neutrophils # Sodium Potassium Chloride Carbon Dioxide Anion Gap BUN Creatinine Estimated GFR BUN/Creatinine Ratio Glucose POC Glucose 97 74 145 H Calcium 11/17/21 11/17/21 04:42 04:42 WBC 13.9 H RBC 4.69 Hgb 12.6 Hct 37.3 MCV 80 L MCH 27 L MCHC 34 RDW 13.3 Plt Count 308 Lymph % (Auto) 9.[address] [place] % (Auto) 5.8 Eos % (Auto) 0.0 Baso % (Auto) 0.7 Lymph # (Auto) 1.3 [place] # (Auto) 0.8 Eos # (Auto) 0.0 Baso # (Auto) 0.1 Seg Neutrophils % 84.1 H Seg Neutrophils # 11.7 H Sodium 136 L Potassium 3.2 L Chloride 99.4 Carbon Dioxide 23 Anion Gap 17 BUN 5 L Creatinine 0.7 L Estimated GFR > 60 BUN/Creatinine Ratio 7 Glucose 111 H POC Glucose Calcium 8.6
--- NOTE | 2021-11-17 11:09 | Progress Note ---
Assessment and Plan Assessment and plan: 61 YO Male with Vascular Dementia, Cerebral Atherosclerosis, CVA presents to ED for evaluation of CVA patient found to have clinical symptoms consistent with CVA complicated by dysphagia, dysarthria. Patient also appears to have expressive aphasia. Patient also found to have hypoglycemia and was treated with dextrose therapy with mild improvement in symptoms. Patient admitted to telemetry and initiated on stroke protocol. Acute CVA with right hemiparesis Expressive aphasia Dysarthria Oropharyngeal dysphagia Debility Hypoglycemia 11/13/2021. Continue secondary prevention with aspirin and Lipitor. Check MRI brain and echocardiogram. CTA of head and neck are negative. Await neurology c onsultation. Await PT and ST evaluations 11/14/2021. Continue secondary prevention with aspirin and Lipitor. MRI reveals a few small scattered areas of ischemia in the area of the corpus callosum left foot of the midline and minimal involvement in the ganglial capsular region on the right which could represent embolic phenomena. No focal mass, acute hemorrhage or hydrocephalus. No acute large territorial infarct seen. Echocardiogram did not reveal thrombi/emboli and no PFO. Physical therapy recommends subacute rehab. Speech therapy did not evaluate the patient yesterday. Await speech therapy evaluation to determine if patient will need Dobbhoff tube feeding. Continue D10 IV fluid for now 11/15/2021. Speech therapy reports patient is aspiration risk. Patient exhibits a pharyngeal phase dysphagia complicated by a swallowing reflex delay. We will consult GI for PEG tube placement. Placed DHT for now and consult dietitian for tube feeding 11/16/2021. PEG placement per GI today. Pt to d/c home with HH. Family education with TF. Also, CM to arrrange for supplies. 11/17/2021. PEG was placed yesterday and patient tolerated tube feedings. Await for case management to arrange for tube feeding supplies and education. Continue PT/OT/ST. Continue secondary prevention with aspirin and Lipitor History Interval history: No new issues overnight. Hospitalist Physical - Constitutional Vitals: Temp Pulse Resp BP Pulse Ox 98.4 F 79 16 126/64 99 11/17/21 07:27 11/17/21 09:02 11/17/21 07:27 11/17/21 07:27 11/17/21 07:27 General appearance: Present: no acute distress - EENT Eyes: Present: PERRL, EOM intact ENT: hearing intact, clear oral mucosa, dentition normal - Neck Neck: Present: supple, normal ROM - Respiratory Respiratory effort: normal Respiratory: bilateral: CTA - Cardiovascular Rhythm: regular Heart Sounds: Present: S1 & S2. Absent: gallop, rub - Extremities Extremities: no ischemia, No edema, Full ROM - Abdominal General gastrointestinal: soft, non-tender, non-distended, normal bowel sounds - Integumentary Integumentary: Present: clear, warm, dry - Neurologic Neurologic: CNII-XII intact, moves all extremities HEART Score - HEART Score Troponin: Troponin T < 0.010 ng/mL (0.00-0.029) 11/12/21 16:48 Results - Labs CBC & Chem 7: 11/17/21 04:42 11/17/21 04:42 Labs: Laboratory Last Values WBC 13.9 K/mm3 (4.5-11.0) H 11/17/21 04:42 RBC 4.69 M/mm3 (3.65-5.03) 11/17/21 04:42 Hgb 12.6 gm/dl (11.8-15.2) 11/17/21 04:42 Hct 37.3 % (35.5-45.6) 11/17/21 04:42 MCV 80 fl (84-94) L 11/17/21 04:42 MCH 27 pg (28-32) L 11/17/21 04:42 MCHC 34 % (32-34) 11/17/21 04:42 RDW 13.3 % (13.2-15.2) 11/17/21 04:42 Plt Count 308 K/mm3 (140-440) 11/17/21 04:42 Lymph % (Auto) 9.4 % (13.4-35.0) L 11/17/21 04:42 [place] % (Auto) 5.8 % (0.0-7.3) 11/17/21 04:42 Eos % (Auto) 0.0 % (0.0-4.3) 11/17/21 04:42 Baso % (Auto) 0.7 % (0.0-1.8) 11/17/21 04:42 Lymph # (Auto) 1.3 K/mm3 (1.2-5.4) 11/17/21 04:42 [place] # (Auto) 0.8 K/mm3 (0.0-0.8) 11/17/21 04:42 Eos # (Auto) 0.0 K/mm3 (0.0-0.4) 11/17/21 04:42 Baso # (Auto) 0.1 K/mm3 (0.0-0.1) 11/17/21 04:42 Seg Neutrophils % 84.1 % (40.0-70.0) H 11/17/21 04:42 Seg Neutrophils # 11.7 K/mm3 (1.8-7.7) H 11/17/21 04:42 PT 13.3 Sec. (12.2-14.9) 11/15/21 18:53 INR 0.92 (0.87-1.13) 11/15/21 18:53 APTT 33.5 Sec. (24.2-36.6) 11/12/21 16:48 Thrombin Time 14.6 Sec. (15.1-19.6) L 11/12/21 16:48 Sodium 136 mmol/L (137-145) L 11/17/21 04:42 Potassium 3.2 mmol/L (3.6-5.0) L 11/17/21 04:42 Chloride 99.4 mmol/L (98-107) 11/17/21 04:42 Carbon Dioxide 23 mmol/L (22-30) 11/17/21 04:42 Anion Gap 17 mmol/L 11/17/21 04:42 BUN 5 mg/dL (9-20) L 11/17/21 04:42 Creatinine 0.7 mg/dL (0.8-1.3) L 11/17/21 04:42 Estimated GFR > 60 ml/min 11/17/21 04:42 BUN/Creatinine Ratio 7 % 11/17/21 04:42 Glucose 111 mg/dL (75-100) H 11/17/21 04:42 POC Glucose 107 mg/dL (70-105) H 11/17/21 07:29 Calcium 8.6 mg/dL (8.4-10.2) 11/17/21 04:42 Magnesium 1.80 mg/dL (1.7-2.3) 11/12/21 16:48 Total Bilirubin 0.50 mg/dL (0.1-1.2) 11/12/21 16:48 AST 18 units/L (5-40) 11/12/21 16:48 ALT 25 units/L (7-56) 11/12/21 16:48 Alkaline Phosphatase 64 units/L (35-129) 11/12/21 16:48 Ammonia 12.0 umol/L (25-60) L 11/12/21 16:48 Total Creatine Kinase 93 units/L (55-170) 11/12/21 16:48 Total Creatine Kinase 93 units/L (55-170) 11/12/21 16:48 CK-MB (CK-2) < 1.0 ng/mL (0.0-4.0) 11/12/21 16:48 CK-MB (CK-2) Rel Index 1.0 (0-4) 11/12/21 16:48 Troponin T < 0.010 ng/mL (0.00-0.029) 11/12/21 16:48 Total Protein 6.5 g/dL (6.3-8.2) 11/12/21 16:48 Albumin 3.6 g/dL (3.9-5) L 11/12/21 16:48 Albumin/Globulin Ratio 1.2 % 11/12/21 16:48 TSH 1.040 mlU/mL (0.270-4.200) 11/12/21 16:48 Urine Color Yellow (Yellow) 11/12/21 18:06 Urine Turbidity Clear (Clear) 11/12/21 18:06 Urine pH 6.0 (5.0-7.0) 11/12/21 18:06 Ur Specific [place] 1.060 (1.003-1.030) H 11/12/21 18:06 Urine Protein <15 mg/dl mg/dL (Negative) 11/12/21 18:06 Urine Glucose (UA) Neg mg/dL (Negative) 11/12/21 18:06 Urine Ketones Tr mg/dL (Negative) 11/12/21 18:06 Urine Blood Neg (Negative) 11/12/21 18:06 Urine Nitrite Neg (Negative) 11/12/21 18:06 Urine Bilirubin Neg (Negative) 11/12/21 18:06 Urine Urobilinogen 4.0 mg/dL (<2.0) 11/12/21 18:06 Ur Leukocyte Esterase Neg (Negative) 11/12/21 18:06 Urine WBC (Auto) < 1.0 /HPF (0.0-6.0) 11/12/21 18:06 Urine RBC (Auto) 1.0 /HPF (0.0-6.0) 11/12/21 18:06 U Epithel Cells (Auto) 3.0 /HPF (0-13.0) 11/12/21 18:06 Urine Mucus 1+ /HPF 11/12/21 18:06 Walker/IV: Voiding Method Condom Catheter Active Medications - Current Medications Current Medications: Generic Name Dose Route Start Last Admin Trade Name Freq PRN Reason Stop Dose Admin Acetaminophen 650 mg 11/12/21 19:10 Acetaminophen 325 Mg Tab PO Q4H PRN Pain, Mild (1-3) Aspirin 325 mg 11/13/21 10:00 11/16/21 09:11 Aspirin 325 Mg Tab PO Not Given QDAY RUBY Atorvastatin Calcium 40 mg 11/12/21 22:00 11/16/21 21:30 Atorvastatin 40 Mg Tab PO 40 mg QHS RUYB Administration Bisacodyl 10 mg 11/12/21 19:10 Bisacodyl 10 Mg Rect Supp NC QDAY PRN Constipation Clopidogrel Bisulfate 75 mg 11/13/21 10:00 11/16/21 09:11 Clopidogrel 75 Mg Tab PO Not Given QDAY RUBY Dextrose 0 ml 11/13/21 07:05 11/16/21 08:49 Dextrose 10% *Hypoglycemia IV 250 ml PRN PRN Administration Hypoglycemia Hydromorphone HCl 0.5 mg 11/12/21 19:10 Hydromorphone 1 Mg/1 Ml Inj IV Q23H PRN Pain , Severe (7-10) Dextrose 1,000 mls @ 100 mls/hr 11/12/21 18:00 11/16/21 09:11 D10w IV 100 mls/hr DIRECT RUBY Administration Sodium Chloride 1,000 mls @ 50 mls/hr 11/16/21 10:15 11/16/21 22:12 Nacl 0.9% 1000 Ml IV 50 mls/hr DIRECT RUBY Administration Magnesium Hydroxide 30 ml 11/12/21 19:10 Magnesium Hydroxide (Mom) Oral Liqd Udc PO Q4H PRN Constipation Metoclopramide HCl 10 mg 11/12/21 19:10 Metoclopramide 10 Mg Tab PO Q6H PRN Nausea And Vomiting Ondansetron HCl 4 mg 11/12/21 19:10 Ondansetron 4 Mg/2 Ml Inj IV Q8H PRN Nausea And Vomiting Oxycodone/Acetaminophen 1 tab 11/12/21 19:10 Oxycodone /Acetaminophen 5-325mg Tab PO Q16H PRN Pain, Moderate (4-6) Promethazine HCl 25 mg 11/12/21 19:10 Promethazine 25 Mg Rect Supp NC Q6H PRN Nausea And Vomiting Sodium Chloride 10 ml 11/12/21 19:10 11/13/21 21:16 Sodium Chloride 0.9% 10 Ml Flush Syringe IV 10 ml PRN PRN Administration LINE FLUSH Nutrition/Malnutrition Assess - Dietary Evaluation Nutrition/Malnutrition Findings: Nutrition Notes Start: 11/13/21 13:00 Freq: Status: Active Protocol: Document 11/16/21 14:20 ANEESH (Rec: 11/16/21 14:46 ANEESH [id number]) Nutrition Notes Initial or Follow up Reassessment Other Pertinent Diagnosis Oropharyngeal Dysphagia, Disartria, R-hemiparesis, Debility, Hypoglycemia. Current Diet NPO (since 11/14 20:52), TF- Jevity 1.2 B[place] @ 57 ml/hr ( from B 11/17). Labs/Tests 11/15:K 3.1, Cl 97.4, BUN 4, Glu 130. Pertinent Medications 11/16: D10w 1000ml @ 100 ml/hr , others nutritionally unremarkable. Height 5 ft 6 in Weight 75.7 kg [place] Body Weight (kg) 64.54 BMI 26.9 Weight change and time frame 0.1 Kg body weight gain reported in 2 days. Weight Status Overweight Subjective/Other Information RD consult for TF tolerance assessment. [employer] note 11/15: Patient exhibits a pharyngeal phase dysphagia with a significant swallow reflex delay. Recommend PEG placement; however, thermal stimulation will be conducted in an attempt to decrease the swallow reflex delay. Procedure 11/16: EGD with PEG tube Placement. Well Tolerated , according to Operative Report. Findings: No gross lesion of the duodenum, minimal gastritis, 2 cm hiatal hernia. TF can be started on 11/17 if normal bowed sounds and no significant tenderness at palpatioin. Percent of energy/protein needs met: Pt currently on NPO after procedure. Prescribed TF-Jevity 1.2 B[place] @ 57 ml/hr provides for energy/ protein needs (1,645 Kcal/76 g ) during LOS, 99% Kcal; 100% AA. Burn Absent Trauma Absent GI Symptoms Other Difficulty In Swallowing Food Allergy No Skin Integrity/Comment Assessment WNL. Current % PO Other #1 Nutrition Diagnosis Swallowing difficulty Comments: [employer] OFFICER note 11/15: Patient exhibits a pharyngeal phase dysphagia with a significant swallow reflex delay. Recommend PEG placement; however, thermal stimulation will be conducted in an attempt to decrease the swallow reflex delay. Procedure 11/16: EGD with PEG tube Placement. Well Tolerated , according to Operative Report. Diagnosis Progress(for reassessment Resolved documentation) Is patient on ventilator? No Is Patient Ambulatory and/or Out of Bed Yes REE-([place]-St. Jeor-ambulatory/OOB) [ 1943.175 NUTR.MSJOOB] Kcal/Kg value to use for calculation 22 Approximate Energy Requirements Using 1665 kcal/Kg Calculation Used for Recommendations Kcal/kg Additional Notes Protein: 0.8-1 g/Kg ABW; 61-76 g/day. Fluids: 1 ml/Kcal, or as per MD. Nutrition Intervention Nutrition Support: When pertinent, resume TF- Jevity 1.2 B[place] @ 57 ml/hr. Flush: 100 ml water Q 4 hr, or as per MD. Kcal 1,645 Protein (gm) 76 Carbohydrates (gm) 232 Fat (gm) 54 Fluid (mL) 1,106 Fiber (gm) 25 % RDI: 99% Kcal; 100% AA. Goal #1 Provide at least 75% of energy /protein needs through Enteral Feeding during LOS. Goal #2 Maintain body weight within +/ -3% of admission body weight during LOS. Follow-Up By: 11/19/21 Additional Comments When pertinent, continue monitoring TF tolerance and BM .
[2021-11-17] MEDS: CLOPIDOGREL 75 MG TAB PO SCH (11:52)
[2021-11-17] MEDS: ASPIRIN 325 MG TAB PO SCH (11:52)
[2021-11-18] MEDS: SODIUM CHLORIDE 0.9% 1000 ML 1,000 ML IV SCH (00:15)
[2021-11-18] MEDS ORDERED: DEXTROSE 10% IN WATER 1,000 ML IV SCH (09:00)
--- NOTE | 2021-11-18 11:25 | Progress Note ---
Assessment and Plan Assessment and plan: 61 YO Male with Vascular Dementia, Cerebral Atherosclerosis, CVA presents to ED for evaluation of CVA patient found to have clinical symptoms consistent with CVA complicated by dysphagia, dysarthria. Patient also appears to have expressive aphasia. Patient also found to have hypoglycemia and was treated with dextrose therapy with mild improvement in symptoms. Patient admitted to telemetry and initiated on stroke protocol. Acute CVA with right hemiparesis Expressive aphasia Dysarthria Oropharyngeal dysphagia Debility Hypoglycemia 11/13/2021. Continue secondary prevention with aspirin and Lipitor. Check MRI brain and echocardiogram. CTA of head and neck are negative. Await neurology c onsultation. Await PT and ST evaluations 11/14/2021. Continue secondary prevention with aspirin and Lipitor. MRI reveals a few small scattered areas of ischemia in the area of the corpus callosum left foot of the midline and minimal involvement in the ganglial capsular region on the right which could represent embolic phenomena. No focal mass, acute hemorrhage or hydrocephalus. No acute large territorial infarct seen. Echocardiogram did not reveal thrombi/emboli and no PFO. Physical therapy recommends subacute rehab. Speech therapy did not evaluate the patient yesterday. Await speech therapy evaluation to determine if patient will need Dobbhoff tube feeding. Continue D10 IV fluid for now 11/15/2021. Speech therapy reports patient is aspiration risk. Patient exhibits a pharyngeal phase dysphagia complicated by a swallowing reflex delay. We will consult GI for PEG tube placement. Placed DHT for now and consult dietitian for tube feeding 11/16/2021. PEG placement per GI today. Pt to d/c home with HH. Family education with TF. Also, CM to arrrange for supplies. 11/17/2021. PEG was placed yesterday and patient tolerated tube feedings. Await for case management to arrange for tube feeding supplies and education. Continue PT/OT/ST. Continue secondary prevention with aspirin and Lipitor 11/18/2021. Continue TF with aspiration precautions. Await for case management to arrange for tube feeding supplies and education. Continue PT/OT/ST. Continue secondary prevention with aspirin and Lipitor History Interval history: No new issues overnight. Hospitalist Physical - Constitutional Vitals: Temp Pulse Resp BP Pulse Ox 97.9 F 81 16 157/91 99 11/18/21 07:58 11/18/21 10:00 11/18/21 07:58 11/18/21 07:58 11/18/21 07:58 General appearance: Present: no acute distress - EENT Eyes: Present: PERRL, EOM intact ENT: hearing intact, clear oral mucosa, dentition normal - Neck Neck: Present: supple, normal ROM - Respiratory Respiratory effort: normal Respiratory: bilateral: CTA - Cardiovascular Rhythm: regular Heart Sounds: Present: S1 & S2. Absent: gallop, rub - Extremities Extremities: no ischemia, No edema, Full ROM - Abdominal General gastrointestinal: soft, non-tender, non-distended, normal bowel sounds - Integumentary Integumentary: Present: clear, warm, dry - Neurologic Neurologic: CNII-XII intact, moves all extremities HEART Score - HEART Score Troponin: Troponin T < 0.010 ng/mL (0.00-0.029) 11/12/21 16:48 Results - Labs CBC & Chem 7: 11/17/21 04:42 11/17/21 04:42 Labs: Laboratory Last Values WBC 13.9 K/mm3 (4.5-11.0) H 11/17/21 04:42 RBC 4.69 M/mm3 (3.65-5.03) 11/17/21 04:42 Hgb 12.6 gm/dl (11.8-15.2) 11/17/21 04:42 Hct 37.3 % (35.5-45.6) 11/17/21 04:42 MCV 80 fl (84-94) L 11/17/21 04:42 MCH 27 pg (28-32) L 11/17/21 04:42 MCHC 34 % (32-34) 11/17/21 04:42 RDW 13.3 % (13.2-15.2) 11/17/21 04:42 Plt Count 308 K/mm3 (140-440) 11/17/21 04:42 Lymph % (Auto) 9.4 % (13.4-35.0) L 11/17/21 04:42 [place] % (Auto) 5.8 % (0.0-7.3) 11/17/21 04:42 Eos % (Auto) 0.0 % (0.0-4.3) 11/17/21 04:42 Baso % (Auto) 0.7 % (0.0-1.8) 11/17/21 04:42 Lymph # (Auto) 1.3 K/mm3 (1.2-5.4) 11/17/21 04:42 [place] # (Auto) 0.8 K/mm3 (0.0-0.8) 11/17/21 04:42 Eos # (Auto) 0.0 K/mm3 (0.0-0.4) 11/17/21 04:42 Baso # (Auto) 0.1 K/mm3 (0.0-0.1) 11/17/21 04:42 Seg Neutrophils % 84.1 % (40.0-70.0) H 11/17/21 04:42 Seg Neutrophils # 11.7 K/mm3 (1.8-7.7) H 11/17/21 04:42 PT 13.3 Sec. (12.2-14.9) 11/15/21 18:53 INR 0.92 (0.87-1.13) 11/15/21 18:53 APTT 33.5 Sec. (24.2-36.6) 11/12/21 16:48 Thrombin Time 14.6 Sec. (15.1-19.6) L 11/12/21 16:48 Sodium 136 mmol/L (137-145) L 11/17/21 04:42 Potassium 3.2 mmol/L (3.6-5.0) L 11/17/21 04:42 Chloride 99.4 mmol/L (98-107) 11/17/21 04:42 Carbon Dioxide 23 mmol/L (22-30) 11/17/21 04:42 Anion Gap 17 mmol/L 11/17/21 04:42 BUN 5 mg/dL (9-20) L 11/17/21 04:42 Creatinine 0.7 mg/dL (0.8-1.3) L 11/17/21 04:42 Estimated GFR > 60 ml/min 11/17/21 04:42 BUN/Creatinine Ratio 7 % 11/17/21 04:42 Glucose 111 mg/dL (75-100) H 11/17/21 04:42 POC Glucose 81 mg/dL (70-105) 11/17/21 20:33 Calcium 8.6 mg/dL (8.4-10.2) 11/17/21 04:42 Magnesium 1.80 mg/dL (1.7-2.3) 11/12/21 16:48 Total Bilirubin 0.50 mg/dL (0.1-1.2) 11/12/21 16:48 AST 18 units/L (5-40) 11/12/21 16:48 ALT 25 units/L (7-56) 11/12/21 16:48 Alkaline Phosphatase 64 units/L (35-129) 11/12/21 16:48 Ammonia 12.0 umol/L (25-60) L 11/12/21 16:48 Total Creatine Kinase 93 units/L (55-170) 11/12/21 16:48 Total Creatine Kinase 93 units/L (55-170) 11/12/21 16:48 CK-MB (CK-2) < 1.0 ng/mL (0.0-4.0) 11/12/21 16:48 CK-MB (CK-2) Rel Index 1.0 (0-4) 11/12/21 16:48 Troponin T < 0.010 ng/mL (0.00-0.029) 11/12/21 16:48 Total Protein 6.5 g/dL (6.3-8.2) 11/12/21 16:48 Albumin 3.6 g/dL (3.9-5) L 11/12/21 16:48 Albumin/Globulin Ratio 1.2 % 11/12/21 16:48 TSH 1.040 mlU/mL (0.270-4.200) 11/12/21 16:48 Urine Color Yellow (Yellow) 11/12/21 18:06 Urine Turbidity Clear (Clear) 11/12/21 18:06 Urine pH 6.0 (5.0-7.0) 11/12/21 18:06 Ur Specific [place] 1.060 (1.003-1.030) H 11/12/21 18:06 Urine Protein <15 mg/dl mg/dL (Negative) 11/12/21 18:06 Urine Glucose (UA) Neg mg/dL (Negative) 11/12/21 18:06 Urine Ketones Tr mg/dL (Negative) 11/12/21 18:06 Urine Blood Neg (Negative) 11/12/21 18:06 Urine Nitrite Neg (Negative) 11/12/21 18:06 Urine Bilirubin Neg (Negative) 11/12/21 18:06 Urine Urobilinogen 4.0 mg/dL (<2.0) 11/12/21 18:06 Ur Leukocyte Esterase Neg (Negative) 11/12/21 18:06 Urine WBC (Auto) < 1.0 /HPF (0.0-6.0) 11/12/21 18:06 Urine RBC (Auto) 1.0 /HPF (0.0-6.0) 11/12/21 18:06 U Epithel Cells (Auto) 3.0 /HPF (0-13.0) 11/12/21 18:06 Urine Mucus 1+ /HPF 11/12/21 18:06 Walker/IV: Voiding Method Condom Catheter Active Medications - Current Medications Current Medications: Generic Name Dose Route Start Last Admin Trade Name Freq PRN Reason Stop Dose Admin Acetaminophen 650 mg 11/12/21 19:10 Acetaminophen 325 Mg Tab PO Q4H PRN Pain, Mild (1-3) Aspirin 325 mg 11/13/21 10:00 11/17/21 11:52 Aspirin 325 Mg Tab PO 325 mg QDAY RUBY Administration Atorvastatin Calcium 40 mg 11/12/21 22:00 11/17/21 23:00 Atorvastatin 40 Mg Tab PO 40 mg QHS RUBY Administration Bisacodyl 10 mg 11/12/21 19:10 Bisacodyl 10 Mg Rect Supp CO QDAY PRN Constipation Clopidogrel Bisulfate 75 mg 11/13/21 10:00 11/17/21 11:52 Clopidogrel 75 Mg Tab PO 75 mg QDAY RUBY Administration Dextrose 0 ml 11/13/21 07:05 11/16/21 08:49 Dextrose 10% *Hypoglycemia IV 250 ml PRN PRN Administration Hypoglycemia Hydromorphone HCl 0.5 mg 11/12/21 19:10 Hydromorphone 1 Mg/1 Ml Inj IV Q23H PRN Pain , Severe (7-10) Dextrose 1,000 mls @ 100 mls/hr 11/18/21 09:00 D10w IV DIRECT RUBY Magnesium Hydroxide 30 ml 11/12/21 19:10 Magnesium Hydroxide (Mom) Oral Liqd Udc PO Q4H PRN Constipation Metoclopramide HCl 10 mg 11/12/21 19:10 Metoclopramide 10 Mg Tab PO Q6H PRN Nausea And Vomiting Ondansetron HCl 4 mg 11/12/21 19:10 Ondansetron 4 Mg/2 Ml Inj IV Q8H PRN Nausea And Vomiting Oxycodone/Acetaminophen 1 tab 11/12/21 19:10 Oxycodone /Acetaminophen 5-325mg Tab PO Q16H PRN Pain, Moderate (4-6) Promethazine HCl 25 mg 11/12/21 19:10 Promethazine 25 Mg Rect Supp CO Q6H PRN Nausea And Vomiting Sodium Chloride 10 ml 11/12/21 19:10 11/13/21 21:16 Sodium Chloride 0.9% 10 Ml Flush Syringe IV 10 ml PRN PRN Administration LINE FLUSH Nutrition/Malnutrition Assess - Dietary Evaluation Nutrition/Malnutrition Findings: Nutrition Notes Start: 11/13/21 13:00 Freq: Status: Active Protocol: Document 11/16/21 14:20 ANEESH (Rec: 11/16/21 14:46 ANEESH [id number]) Nutrition Notes Initial or Follow up Reassessment Other Pertinent Diagnosis Oropharyngeal Dysphagia, Disartria, R-hemiparesis, Debility, Hypoglycemia. Current Diet NPO (since 11/14 20:52), TF- Jevity 1.2 B[place] @ 57 ml/hr ( from B 11/17). Labs/Tests 11/15:K 3.1, Cl 97.4, BUN 4, Glu 130. Pertinent Medications 11/16: D10w 1000ml @ 100 ml/hr , others nutritionally unremarkable. Height 5 ft 6 in Weight 75.7 kg [place] Body Weight (kg) 64.54 BMI 26.9 Weight change and time frame 0.1 Kg body weight gain reported in 2 days. Weight Status Overweight Subjective/Other Information RD consult for TF tolerance assessment. [employer] note 11/15: Patient exhibits a pharyngeal phase dysphagia with a significant swallow reflex delay. Recommend PEG placement; however, thermal stimulation will be conducted in an attempt to decrease the swallow reflex delay. Procedure 11/16: EGD with PEG tube Placement. Well Tolerated , according to Operative Report. Findings: No gross lesion of the duodenum, minimal gastritis, 2 cm hiatal hernia. TF can be started on 11/17 if normal bowed sounds and no significant tenderness at palpatioin. Percent of energy/protein needs met: Pt currently on NPO after procedure. Prescribed TF-Jevity 1.2 B[place] @ 57 ml/hr provides for energy/ protein needs (1,645 Kcal/76 g ) during LOS, 99% Kcal; 100% AA. Burn Absent Trauma Absent GI Symptoms Other Difficulty In Swallowing Food Allergy No Skin Integrity/Comment Assessment WNL. Current % PO Other #1 Nutrition Diagnosis Swallowing difficulty Comments: [employer] note 11/15: Patient exhibits a pharyngeal phase dysphagia with a significant swallow reflex delay. Recommend PEG placement; however, thermal stimulation will be conducted in an attempt to decrease the swallow reflex delay. Procedure 11/16: EGD with PEG tube Placement. Well Tolerated , according to Operative Report. Diagnosis Progress(for reassessment Resolved documentation) Is patient on ventilator? No Is Patient Ambulatory and/or Out of Bed Yes REE-([place]-St. Jeor-ambulatory/OOB) [ 1943.175 NUTR.[id number]] Kcal/Kg value to use for calculation 22 Approximate Energy Requirements Using 1665 kcal/Kg Calculation Used for Recommendations Kcal/kg Additional Notes Protein: 0.8-1 g/Kg ABW; 61-76 g/day. Fluids: 1 ml/Kcal, or as per MD. Nutrition Intervention Nutrition Support: When pertinent, resume TF- Jevity 1.2 Bijan @ 57 ml/hr. Flush: 100 ml water Q 4 hr, or as per MD. Kcal 1,645 Protein (gm) 76 Carbohydrates (gm) 232 Fat (gm) 54 Fluid (mL) 1,106 Fiber (gm) 25 % RDI: 99% Kcal; 100% AA. Goal #1 Provide at least 75% of energy /protein needs through Enteral Feeding during LOS. Goal #2 Maintain body weight within +/ -3% of admission body weight during LOS. Follow-Up By: 11/19/21 Additional Comments When pertinent, continue monitoring TF tolerance and BM .
[2021-11-18] MEDS: CLOPIDOGREL 75 MG TAB PO SCH (11:33)
[2021-11-18] MEDS: ASPIRIN 325 MG TAB PO SCH (11:33)
[2021-11-18] MEDS: ONDANSETRON 4 MG/2 ML INJ IV PRN (11:42)
[2021-11-18] MEDS ORDERED: LIPASE 10,500/PROTEASE 25,000/AMYLASE 43,750 (UNITS) DR CAP FEEDTUBE PRN (13:00)
[2021-11-18] MEDS ORDERED: SIMPLE SYRUP 15 ML FEEDTUBE PRN ×2 (13:00)
[2021-11-18] MEDS ORDERED: SODIUM BICARBONATE 325 MG TAB FEEDTUBE PRN (13:00)
--- NOTE | 2021-11-19 08:59 | Progress Note ---
Assessment and Plan Assessment and plan: 61 YO Male with Vascular Dementia, Cerebral Atherosclerosis, CVA presents to ED for evaluation of CVA patient found to have clinical symptoms consistent with CVA complicated by dysphagia, dysarthria. Patient also appears to have expressive aphasia. Patient also found to have hypoglycemia and was treated with dextrose therapy with mild improvement in symptoms. Patient admitted to telemetry and initiated on stroke protocol. Acute CVA with right hemiparesis Expressive aphasia Dysarthria Oropharyngeal dysphagia Debility Hypoglycemia 11/13/2021. Continue secondary prevention with aspirin and Lipitor. Check MRI brain and echocardiogram. CTA of head and neck are negative. Await neurology c onsultation. Await PT and ST evaluations 11/14/2021. Continue secondary prevention with aspirin and Lipitor. MRI reveals a few small scattered areas of ischemia in the area of the corpus callosum left foot of the midline and minimal involvement in the ganglial capsular region on the right which could represent embolic phenomena. No focal mass, acute hemorrhage or hydrocephalus. No acute large territorial infarct seen. Echocardiogram did not reveal thrombi/emboli and no PFO. Physical therapy recommends subacute rehab. Speech therapy did not evaluate the patient yesterday. Await speech therapy evaluation to determine if patient will need Dobbhoff tube feeding. Continue D10 IV fluid for now 11/15/2021. Speech therapy reports patient is aspiration risk. Patient exhibits a pharyngeal phase dysphagia complicated by a swallowing reflex delay. We will consult GI for PEG tube placement. Placed DHT for now and consult dietitian for tube feeding 11/16/2021. PEG placement per GI today. Pt to d/c home with HH. Family education with TF. Also, CM to arrrange for supplies. 11/17/2021. PEG was placed yesterday and patient tolerated tube feedings. Await for case management to arrange for tube feeding supplies and education. Continue PT/OT/ST. Continue secondary prevention with aspirin and Lipitor 11/18/2021. Continue TF with aspiration precautions. Await for case management to arrange for tube feeding supplies and education. Continue PT/OT/ST. Continue secondary prevention with aspirin and Lipitor 11/19/2021. Continue TF with aspiration precautions. Family education with regards to tube feeding. Continue PT/OT/ST. Continue secondary prevention with aspirin and Lipitor. History Interval history: No new issues overnight. Hospitalist Physical - Constitutional Vitals: Temp Pulse Resp BP Pulse Ox 98.1 F 91 H 16 154/93 95 11/19/21 07:42 11/19/21 07:42 11/19/21 07:42 11/19/21 07:42 11/19/21 07:42 General appearance: Present: no acute distress - EENT Eyes: Present: PERRL, EOM intact ENT: hearing intact, clear oral mucosa, dentition normal - Neck Neck: Present: supple, normal ROM - Respiratory Respiratory effort: normal Respiratory: bilateral: CTA - Cardiovascular Rhythm: regular Heart Sounds: Present: S1 & S2. Absent: gallop, rub - Extremities Extremities: no ischemia, No edema, Full ROM - Abdominal General gastrointestinal: soft, non-tender, non-distended, normal bowel sounds - Integumentary Integumentary: Present: clear, warm, dry - Neurologic Neurologic: CNII-XII intact, moves all extremities HEART Score - HEART Score Troponin: Troponin T < 0.010 ng/mL (0.00-0.029) 11/12/21 16:48 Results - Labs CBC & Chem 7: 11/17/21 04:42 11/17/21 04:42 Labs: Laboratory Last Values WBC 13.9 K/mm3 (4.5-11.0) H 11/17/21 04:42 RBC 4.69 M/mm3 (3.65-5.03) 11/17/21 04:42 Hgb 12.6 gm/dl (11.8-15.2) 11/17/21 04:42 Hct 37.3 % (35.5-45.6) 11/17/21 04:42 MCV 80 fl (84-94) L 11/17/21 04:42 MCH 27 pg (28-32) L 11/17/21 04:42 MCHC 34 % (32-34) 11/17/21 04:42 RDW 13.3 % (13.2-15.2) 11/17/21 04:42 Plt Count 308 K/mm3 (140-440) 11/17/21 04:42 Lymph % (Auto) 9.4 % (13.4-35.0) L 11/17/21 04:42 [place] % (Auto) 5.8 % (0.0-7.3) 11/17/21 04:42 Eos % (Auto) 0.0 % (0.0-4.3) 11/17/21 04:42 Baso % (Auto) 0.7 % (0.0-1.8) 11/17/21 04:42 Lymph # (Auto) 1.3 K/mm3 (1.2-5.4) 11/17/21 04:42 [place] # (Auto) 0.8 K/mm3 (0.0-0.8) 11/17/21 04:42 Eos # (Auto) 0.0 K/mm3 (0.0-0.4) 11/17/21 04:42 Baso # (Auto) 0.1 K/mm3 (0.0-0.1) 11/17/21 04:42 Seg Neutrophils % 84.1 % (40.0-70.0) H 11/17/21 04:42 Seg Neutrophils # 11.7 K/mm3 (1.8-7.7) H 11/17/21 04:42 PT 13.3 Sec. (12.2-14.9) 11/15/21 18:53 INR 0.92 (0.87-1.13) 11/15/21 18:53 APTT 33.5 Sec. (24.2-36.6) 11/12/21 16:48 Thrombin Time 14.6 Sec. (15.1-19.6) L 11/12/21 16:48 Sodium 136 mmol/L (137-145) L 11/17/21 04:42 Potassium 3.2 mmol/L (3.6-5.0) L 11/17/21 04:42 Chloride 99.4 mmol/L (98-107) 11/17/21 04:42 Carbon Dioxide 23 mmol/L (22-30) 11/17/21 04:42 Anion Gap 17 mmol/L 11/17/21 04:42 BUN 5 mg/dL (9-20) L 11/17/21 04:42 Creatinine 0.7 mg/dL (0.8-1.3) L 11/17/21 04:42 Estimated GFR > 60 ml/min 11/17/21 04:42 BUN/Creatinine Ratio 7 % 11/17/21 04:42 Glucose 111 mg/dL (75-100) H 11/17/21 04:42 POC Glucose 119 mg/dL (70-105) H 11/19/21 07:37 Calcium 8.6 mg/dL (8.4-10.2) 11/17/21 04:42 Magnesium 1.80 mg/dL (1.7-2.3) 11/12/21 16:48 Total Bilirubin 0.50 mg/dL (0.1-1.2) 11/12/21 16:48 AST 18 units/L (5-40) 11/12/21 16:48 ALT 25 units/L (7-56) 11/12/21 16:48 Alkaline Phosphatase 64 units/L (35-129) 11/12/21 16:48 Ammonia 12.0 umol/L (25-60) L 11/12/21 16:48 Total Creatine Kinase 93 units/L (55-170) 11/12/21 16:48 Total Creatine Kinase 93 units/L (55-170) 11/12/21 16:48 CK-MB (CK-2) < 1.0 ng/mL (0.0-4.0) 11/12/21 16:48 CK-MB (CK-2) Rel Index 1.0 (0-4) 11/12/21 16:48 Troponin T < 0.010 ng/mL (0.00-0.029) 11/12/21 16:48 Total Protein 6.5 g/dL (6.3-8.2) 11/12/21 16:48 Albumin 3.6 g/dL (3.9-5) L 11/12/21 16:48 Albumin/Globulin Ratio 1.2 % 11/12/21 16:48 TSH 1.040 mlU/mL (0.270-4.200) 11/12/21 16:48 Urine Color Yellow (Yellow) 11/12/21 18:06 Urine Turbidity Clear (Clear) 11/12/21 18:06 Urine pH 6.0 (5.0-7.0) 11/12/21 18:06 Ur Specific [place] 1.060 (1.003-1.030) H 11/12/21 18:06 Urine Protein <15 mg/dl mg/dL (Negative) 11/12/21 18:06 Urine Glucose (UA) Neg mg/dL (Negative) 11/12/21 18:06 Urine Ketones Tr mg/dL (Negative) 11/12/21 18:06 Urine Blood Neg (Negative) 11/12/21 18:06 Urine Nitrite Neg (Negative) 11/12/21 18:06 Urine Bilirubin Neg (Negative) 11/12/21 18:06 Urine Urobilinogen 4.0 mg/dL (<2.0) 11/12/21 18:06 Ur Leukocyte Esterase Neg (Negative) 11/12/21 18:06 Urine WBC (Auto) < 1.0 /HPF (0.0-6.0) 11/12/21 18:06 Urine RBC (Auto) 1.0 /HPF (0.0-6.0) 11/12/21 18:06 U Epithel Cells (Auto) 3.0 /HPF (0-13.0) 11/12/21 18:06 Urine Mucus 1+ /HPF 11/12/21 18:06 Walker/IV: Voiding Method Condom Catheter Active Medications - Current Medications Current Medications: Generic Name Dose Route Start Last Admin Trade Name Freq PRN Reason Stop Dose Admin Acetaminophen 650 mg 11/12/21 19:10 Acetaminophen 325 Mg Tab PO Q4H PRN Pain, Mild (1-3) Lipase/Protease/Amylase 1 each 11/18/21 13:00 Lipase 10,500/Protease 25,000/Amylase 43,750 (Units) Dr Steven FEEDTUBE PRN PRN For Clogged Feeding Tube Aspirin 325 mg 11/13/21 10:00 11/18/21 11:33 Aspirin 325 Mg Tab PO 325 mg QDAY RUBY Administration Atorvastatin Calcium 40 mg 11/12/21 22:00 11/18/21 22:06 Atorvastatin 40 Mg Tab PO 40 mg QHS RUBY Administration Bisacodyl 10 mg 11/12/21 19:10 Bisacodyl 10 Mg Rect Supp NE QDAY PRN Constipation Clopidogrel Bisulfate 75 mg 11/13/21 10:00 11/18/21 11:33 Clopidogrel 75 Mg Tab PO 75 mg QDAY RUBY Administration Dextrose 0 ml 11/13/21 07:05 11/16/21 08:49 Dextrose 10% *Hypoglycemia IV 250 ml PRN PRN Administration Hypoglycemia Hydromorphone HCl 0.5 mg 11/12/21 19:10 11/18/21 11:42 Hydromorphone 1 Mg/1 Ml Inj IV 0.5 mg Q23H PRN Administration Pain , Severe (7-10) Magnesium Hydroxide 30 ml 11/12/21 19:10 Magnesium Hydroxide (Mom) Oral Liqd Udc PO Q4H PRN Constipation Metoclopramide HCl 10 mg 11/12/21 19:10 Metoclopramide 10 Mg Tab PO Q6H PRN Nausea And Vomiting Ondansetron HCl 4 mg 11/12/21 19:10 11/18/21 11:42 Ondansetron 4 Mg/2 Ml Inj IV 4 mg Q8H PRN Administration Nausea And Vomiting Oxycodone/Acetaminophen 1 tab 11/12/21 19:10 Oxycodone /Acetaminophen 5-325mg Tab PO Q16H PRN Pain, Moderate (4-6) Promethazine HCl 25 mg 11/12/21 19:10 Promethazine 25 Mg Rect Supp NE Q6H PRN Nausea And Vomiting Simple Syrup 15 ml 11/18/21 13:00 Simple Syrup 15 Ml FEEDTUBE PRN PRN Hypoglycemia Simple Syrup 30 ml 11/18/21 13:00 Simple Syrup 15 Ml FEEDTUBE PRN PRN Hypoglycemia Sodium Bicarbonate 325 mg 11/18/21 13:00 Sodium Bicarbonate 325 Mg Tab FEEDTUBE PRN PRN For Clogged Feeding Tube Sodium Chloride 10 ml 11/12/21 19:10 11/18/21 11:33 Sodium Chloride 0.9% 10 Ml Flush Syringe IV 10 ml PRN PRN Administration LINE FLUSH Nutrition/Malnutrition Assess - Dietary Evaluation Nutrition/Malnutrition Findings: Nutrition Notes Start: 11/13/21 13:00 Freq: Status: Active Protocol: Document 11/16/21 14:20 ANEESH (Rec: 11/16/21 14:46 ANEESH [email or web address]) Nutrition Notes Initial or Follow up Reassessment Other Pertinent Diagnosis Oropharyngeal Dysphagia, Disartria, R-hemiparesis, Debility, Hypoglycemia. Current Diet NPO (since 11/14 20:52), TF- Jevity 1.2 Bijan @ 57 ml/hr ( from B 11/17). Labs/Tests 11/15:K 3.1, Cl 97.4, BUN 4, Glu 130. Pertinent Medications 11/16: D10w 1000ml @ 100 ml/hr , others nutritionally unremarkable. Height 5 ft 6 in Weight 75.7 kg [place] Body Weight (kg) 64.54 BMI 26.9 Weight change and time frame 0.1 Kg body weight gain reported in 2 days. Weight Status Overweight Subjective/Other Information RD consult for TF tolerance assessment. STATEMENT CLERK note 11/15: Patient exhibits a pharyngeal phase dysphagia with a significant swallow reflex delay. Recommend PEG placement; however, thermal stimulation will be conducted in an attempt to decrease the swallow reflex delay. Procedure 11/16: EGD with PEG tube Placement. Well Tolerated , according to Operative Report. Findings: No gross lesion of the duodenum, minimal gastritis, 2 cm hiatal hernia. TF can be started on 11/17 if normal bowed sounds and no significant tenderness at palpatioin. Percent of energy/protein needs met: Pt currently on NPO after procedure. Prescribed TF-Jevity 1.2 Bijan @ 57 ml/hr provides for energy/ protein needs (1,645 Kcal/76 g ) during LOS, 99% Kcal; 100% AA. Burn Absent Trauma Absent GI Symptoms Other Difficulty In Swallowing Food Allergy No Skin Integrity/Comment Assessment WNL. Current % PO Other #1 Nutrition Diagnosis Swallowing difficulty Comments: STATEMENT CLERK note 11/15: Patient exhibits a pharyngeal phase dysphagia with a significant swallow reflex delay. Recommend PEG placement; however, thermal stimulation will be conducted in an attempt to decrease the swallow reflex delay. Procedure 11/16: EGD with PEG tube Placement. Well Tolerated , according to Operative Report. Diagnosis Progress(for reassessment Resolved documentation) Is patient on ventilator? No Is Patient Ambulatory and/or Out of Bed Yes REE-([place]-ambulatory/OOB) [ 1943.175 [id number]] Kcal/Kg value to use for calculation 22 Approximate Energy Requirements Using 1665 kcal/Kg Calculation Used for Recommendations Kcal/kg Additional Notes Protein: 0.8-1 g/Kg ABW; 61-76 g/day. Fluids: 1 ml/Kcal, or as per MD. Nutrition Intervention Nutrition Support: When pertinent, resume TF- Jevity 1.2 [place] @ 57 ml/hr. Flush: 100 ml water Q 4 hr, or as per MD. Kcal 1,645 Protein (gm) 76 Carbohydrates (gm) 232 Fat (gm) 54 Fluid (mL) 1,106 Fiber (gm) 25 % RDI: 99% Kcal; 100% AA. Goal #1 Provide at least 75% of energy /protein needs through Enteral Feeding during LOS. Goal #2 Maintain body weight within +/ -3% of admission body weight during LOS. Follow-Up By: 11/19/21 Additional Comments When pertinent, continue monitoring TF tolerance and BM .
[2021-11-19] MEDS: ASPIRIN 325 MG TAB PO SCH (09:20)
[2021-11-19] MEDS: CLOPIDOGREL 75 MG TAB PO SCH (09:20)
--- NOTE | 2021-11-19 09:34 | Consultation ---
History of Present Illness Consult date: 11/19/21 Reason for Consult: Confuasion with increased weakness,hx of dementia History of present illness: He is weak on his right side and he is more confused today History of present illness: 61 YO Male with Vascular Dementia, Cerebral Atherosclerosis, CVA presents to ED for evaluation. Patient has diminished cognition and is unable to provide detailed history. Patient history taken from EMS staff, ED staff, as well as patient family who was at bedside during exam and interview. As per family member reports the patient has experienced sudden onset weakness on his right side as well as increased confusion. Patient symptoms began at around 1700 hrs. on the day prior to admission. Patient was found to have persistent symptoms today. EMS was notified and upon arrival the patient was found to have a neurologic deficit. A code stroke was called and the patient was transported to [facility] for further care and evaluation of the aforementioned symptoms. The patient was seen and evaluated in the emergency department. All lab and imaging studies reviewed. Patient found to have clinical symptoms consistent with CVA complicated by dysphagia, dysarthria. Patient also found to have hypoglycemia and was treated with dextrose therapy with mild improvement in symptoms. Patient admitted to telemetry and initiated on stroke protocol. No reports of fever, chills, chest pain, palpitation, productive cough, skin rash, recent contact, or known exposure to COVID-19. No prior admission for review. No medication listed at time of admission for reconciliation. Teleneurology consulted in ED. Advanced care planning conducted in ED. Patient has a positive gag reflex at the time my evaluation is able to protect his airway without difficulty. today pt,. is still with significant weakness right upper as well as speech impairment CT brain showed multiple hypodense lesions CTA brain and neck is unremarkable -EKG is NSR -Echo is with EF#55-60% negative bubble study -pt smokes 2 ppd drinks occasionally ? was started on ASA and Plavix , Lipitor Past History Past Medical History: stroke Past Surgical History: No surgical history, Other (Reviewed) Social history: single, lives with family Family history: hypertension Medications and Allergies Allergies Allergy/AdvReac Type Severity Reaction Status Date / Time No Known Allergies Allergy Unverified 11/12/21 17:19 Active Meds: Active Medications Dextrose (D10w 250 Ml Iv Soln) 75 ml IV PRN PRN PRN Reason: Hypoglycemia Dextrose (D10w) 1,000 mls @ 100 mls/hr IV DIRECT [facility] Last Admin: 11/12/21 19:00 Dose: 100 mls/hr Review of Systems ROS unobtainable: due to mental status Past History Past Medical History: stroke Past Surgical History: No surgical history, Other (Reviewed) Social history: single, lives with family Family history: hypertension Medications and Allergies Allergies Allergy/AdvReac Type Severity Reaction Status Date / Time No Known Allergies Allergy Unverified 11/12/21 17:19 Home Medications Medication Instructions Recorded Confirmed Last Taken Type Amlodipine Besylate [Norvasc] 10 mg PO DAILY 11/14/21 11/14/21 Unknown History Atorvastatin [Lipitor Tab] 40 mg PO QHS 11/14/21 11/14/21 Unknown History Clopidogrel [Plavix] 75 mg PO QDAY 11/14/21 11/14/21 Unknown History FLUoxetine HCL [Prozac] 10 mg PO DAILY 11/14/21 11/14/21 Unknown History hydroCHLOROthiazide [Hctz] 12.5 mg PO QDAY 11/14/21 11/14/21 Unknown History lisinopriL [Lisinopril] 20 mg PO DAILY 11/14/21 11/14/21 Unknown History Active Meds: Active Medications Acetaminophen (Acetaminophen 325 Mg Tab) 650 mg PO Q4H PRN PRN Reason: Pain, Mild (1-3) Lipase/Protease/Amylase (Lipase 10,500/Protease 25,000/Amylase 43,750 (Units) Dr Steven) 1 each FEEDTUBE PRN PRN PRN Reason: For Clogged Feeding Tube Aspirin (Aspirin 325 Mg Tab) 325 mg PO QDAY [facility] Last Admin: 11/19/21 09:20 Dose: 325 mg Atorvastatin Calcium (Atorvastatin 40 Mg Tab) 40 mg PO QHS [facility] Last Admin: 11/18/21 22:06 Dose: 40 mg Bisacodyl (Bisacodyl 10 Mg Rect Supp) 10 mg VA QDAY PRN PRN Reason: Constipation Clopidogrel Bisulfate (Clopidogrel 75 Mg Tab) 75 mg PO QDAY [facility] Last Admin: 11/19/21 09:20 Dose: 75 mg Dextrose (Dextrose 10% *Hypoglycemia) 0 ml IV PRN PRN PRN Reason: Hypoglycemia Last Admin: 11/16/21 08:49 Dose: 250 ml Hydromorphone HCl (Hydromorphone 1 Mg/1 Ml Inj) 0.5 mg IV Q23H PRN PRN Reason: Pain , Severe (7-10) Last Admin: 11/18/21 11:42 Dose: 0.5 mg Magnesium Hydroxide (Magnesium Hydroxide (Mom) Oral Liqd Udc) 30 ml PO Q4H PRN PRN Reason: Constipation Metoclopramide HCl (Metoclopramide 10 Mg Tab) 10 mg PO Q6H PRN PRN Reason: Nausea And Vomiting Ondansetron HCl (Ondansetron 4 Mg/2 Ml Inj) 4 mg IV Q8H PRN PRN Reason: Nausea And Vomiting Last Admin: 11/18/21 11:42 Dose: 4 mg Oxycodone/Acetaminophen (Oxycodone /Acetaminophen 5-325mg Tab) 1 tab PO Q16H VA N PRN Reason: Pain, Moderate (4-6) Promethazine HCl (Promethazine 25 Mg Rect Supp) 25 mg VA Q6H PRN PRN Reason: Nausea And Vomiting Simple Syrup (Simple Syrup 15 Ml) 15 ml FEEDTUBE PRN PRN PRN Reason: Hypoglycemia Simple Syrup (Simple Syrup 15 Ml) 30 ml FEEDTUBE PRN PRN PRN Reason: Hypoglycemia Sodium Bicarbonate (Sodium Bicarbonate 325 Mg Tab) 325 mg FEEDTUBE PRN PRN PRN Reason: For Clogged Feeding Tube Sodium Chloride (Sodium Chloride 0.9% 10 Ml Flush Syringe) 10 ml IV PRN PRN PRN Reason: LINE FLUSH Last Admin: 11/18/21 11:33 Dose: 10 ml Physical Examination - Vital Signs Vital Signs: Vital Signs Pulse Resp Pulse Ox 83 19 79 L 11/12/21 17:09 11/12/21 17:09 11/12/21 17:09 - Constitutional General appearance: uncomfortable - EENT EENT: Present: PERRL, mucous membranes moist - Respiratory Respiratory: Present: lungs clear, rhonchi - Cardiovascular Cardiovascular: Present: regular rate, normal S1, normal S2 Extremities: Present: no peripheral edema bilatateraly, no clubbing, cyanosis - Gastrointestinal Gastrointestinal: Present: normoactive bowel sounds - Integumentary Integumentary: Present: normal - Neurologic Cranial nerve examination: PERRL, EOMI, facial droop Speech examination: other (difficulty with words findings ) Detailed motor examination: other (right upper 3/5 lower 4-/5 , left 4/5 ) - Level of Consciousness 1a. Level of Consciousness: alert/keenly responsive - LOC Questions 1b. LOC Questions: answers both correctly - LOC Command 1c. LOC Commands: performs tasks correctly - Best Gaze 2. Best Gaze: normal - Visual 3. Visual: no visual loss - Facial Palsy 4. Facial Palsy: minor paralysis - Motor Arm 5a. Motor Arm Left: no drift 5b. Motor Arm Right: some gravity effort - Motor Leg 6a. Motor Leg Left: no drift 6b. Motor Leg Right: drift - Limb Ataxia 7. Limb Ataxia: absent - Sensory 8. Sensory: normal - Best Language 9. Best Language: mild/moderate aphasia - Dysarthria 10. Dysarthria: normal - Extinction and Inattention 11. Extinction/Inattention: no abnormality - Scoring Total Score: 5 Stroke Severity: Moderate Stroke Results - Laboratory Findings CBC and BMP: 11/17/21 04:42 11/17/21 04:42 Abnormal Lab Findings: Abnormal Labs 11/12/21 11/12/21 11/12/21 16:48 16:48 16:48 WBC MCV 81 L MCH MCHC 35 H Lymph % (Auto) Seg Neutrophils % 76.6 H Seg Neutrophils # Thrombin Time 14.6 L Sodium 133 L Potassium Chloride 96.7 L BUN Creatinine Glucose POC Glucose Ammonia Albumin 3.6 L Ur Specific [place] 11/12/21 11/12/21 11/12/21 16:48 17:12 18:06 WBC MCV MCH MCHC Lymph % (Auto) Seg Neutrophils % Seg Neutrophils # Thrombin Time Sodium Potassium Chloride BUN Creatinine Glucose POC Glucose 61 L Ammonia 12.0 L Albumin Ur Specific [place] 1.060 H 11/12/21 11/13/21 11/13/21 23:01 07:29 15:47 WBC MCV MCH MCHC Lymph % (Auto) Seg Neutrophils % Seg Neutrophils # Thrombin Time Sodium Potassium Chloride BUN Creatinine Glucose POC Glucose 118 H 148 H 125 H Ammonia Albumin Ur Specific [place] 11/14/21 11/14/21 11/15/21 16:15 21:47 16:52 WBC MCV MCH MCHC Lymph % (Auto) Seg Neutrophils % Seg Neutrophils # Thrombin Time Sodium Potassium Chloride BUN Creatinine Glucose POC Glucose 179 H 154 H 126 H Ammonia Albumin Ur Specific [place] 11/15/21 11/15/21 11/16/21 18:53 18:53 07:45 WBC 12.3 H MCV 81 L MCH MCHC Lymph % (Auto) Seg Neutrophils % Seg Neutrophils # Thrombin Time Sodium Potassium 3.1 L D Chloride 97.4 L BUN 4 L Creatinine Glucose 130 H POC Glucose 118 H Ammonia Albumin Ur Specific [place] 11/16/21 11/17/21 11/17/21 20:04 04:42 04:42 WBC 13.9 H MCV 80 L MCH 27 L MCHC Lymph % (Auto) 9.4 L Seg Neutrophils % 84.1 H Seg Neutrophils # 11.7 H Thrombin Time Sodium 136 L Potassium 3.2 L Chloride BUN 5 L Creatinine 0.7 L Glucose 111 H POC Glucose 145 H Ammonia Albumin Ur Specific [place] 11/17/21 11/18/21 11/18/21 07:29 08:00 22:03 WBC MCV MCH MCHC Lymph % (Auto) Seg Neutrophils % Seg Neutrophils # Thrombin Time Sodium Potassium Chloride BUN Creatinine Glucose POC Glucose 107 H 116 H 124 H Ammonia Albumin Ur Specific [place] 11/19/21 07:37 WBC MCV MCH MCHC Lymph % (Auto) Seg Neutrophils % Seg Neutrophils # Thrombin Time Sodium Potassium Chloride BUN Creatinine Glucose POC Glucose 119 H Ammonia Albumin Ur Specific [place] Assessment and Plan Assessment and Plan 61 YO Male with Vascular Dementia, Cerebral Atherosclerosis, CVA presents to ED for evaluation. Patient has diminished cognition and is unable to provide detailed history. Patient history taken from EMS staff, ED staff, as well as patient family who was at bedside during exam and interview. As per family member reports the patient has experienced sudden onset weakness on his right side as well as increased confusion. - Patient Problems # New onset of right side weakness and speech impairment -r/o CVA (cerebral vascular accident) -NIH#5 -CT brain showed bilateral hypodense lesions -CTA brain and neck are unremarkable -MRI brain showed scattered emboli bilateral L>R r/o AF -Started On ASA and Plavix plus lipitor -echo with buble study showed EF#55-60% -LDL is pending -Pt/ST evaluate -cardiac monitoring -Consider MCOT on D/C # Right hemiparesis -Secondary to CVA, physical therapy consulted, supportive care. # Dysarthria and Dysphagia Speech therapy consulted, supportive care, # Debility Physical therapy consulted, supportive care. # Hypoglycemia -Dextrose therapy. Repeat BMP in a.m. # DVT prophylaxis -SCD to bilateral lower extremities while in bed # Advance care planning -disease education conducted, care plan discussed, diagnoses discussed, prognosis discussed, patient is full code. +30 minutes.
[2021-11-19 10:38] LABS: Chol/HDL Ratio 2.43 %
[2021-11-19] MEDS: ONDANSETRON 4 MG/2 ML INJ IV PRN (12:28)
--- NOTE | 2021-11-19 13:38 | Magnetic Resonance Report ---
MR brain wo/w con INDICATION / CLINICAL INFORMATION: 61 years Male; Seizure disorder Patient motion, repeated spans, best possible study.. TECHNIQUE: Multiplanar, multisequence MR images of the brain were obtained. COMPARISON: None available. FINDINGS: BRAIN / INTRACRANIAL CONTENTS: Multiple areas of ischemia are seen. Many of these are seen in the cor pus callosum, leftward of midline anteriorly and rightward of midline posteriorly. There is also a pu nctate focus of ischemia in the posterior putamen on the right. These findings appear to be positive on ADC map suggesting they are acute/subacute in age. Different vascular distributions are suggested- embolic phenomenon might be a consideration. Mild to moderate, diffuse cerebral and cerebellar atrophy. Old, small branch PICA infarct seen on the left. Small lacunar infarcts are noted bilaterally in the gangliocapsular regions, including the right thalamus. Old corpus striatal infarct seen on the left. Gradient echo T2 imaging suggests a punctate focus of old microhemorrhage in the right thalamic regio n, presumably related to hypertension. There are moderate to marked areas of increased signal intensity on FLAIR imaging in the white matter of the cerebral hemispheres, as well as the gangliocapsular regions. These are nonspecific findings and may be related to microangiopathy (hypertension, diabetes, atherosclerosis), given the patient's age. 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 Otherwise, no acute ischemia, acute hemorrhage, or hydrocephalus. 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 CRANIOCERVICAL JUNCTION: No significant abnormality. VASCULAR FLOW-VOIDS: No significant abnormality. ORBITS: No significant abnormality of visualized orbits. SINUSES / MASTOIDS: Mild to moderate mucosal thickening seen in the ethmoids. ADDITIONAL FINDINGS: Small, well-circumscribed focus of increased T2 signal seen in the inferior paro tid gland on the right, superficially and posteriorly, just anterior to the sternocleidomastoid. Find ings have the appearance of a cyst, when compared with CTA of the neck performed on 11/12/2021. This l esion measures 18 mm in maximum dimension. Etiology, such as Warthin's tumor, cannot entirely be excl uded. Comparison with prior exam or follow-up ultrasound in 3-6 months may be of benefit. IMPRESSION: 1. Acute/early subacute changes, as described above. Embolic phenomenon might be consideration. 2. Well-circumscribed cystic lesion in the superficial portion of the right parotid gland as describe d above. Follow-up as clinically warranted. Signer Name: Brendon Lane MD, III Signed: 11/19/2021 1:33 PM Workstation Name: [id number]
--- NOTE | 2021-11-19 17:42 | XRay Report ---
ABDOMEN 1 VIEW(S) INDICATION / CLINICAL INFORMATION: Vomiting. COMPARISON: 11/14/2021. FINDINGS: TUBES / LINES: None. BOWEL GAS PATTERN: Increasing bowel distention diffusely with involvement of the colon greater than s mall bowel. ADDITIONAL FINDINGS: No significant additional findings. IMPRESSION: Suspected diffuse ileus with worsening compared with the prior exam. Signer Name: Shravan Rush MD Signed: 11/19/2021 5:37 PM Workstation Name: [id number]
[2021-11-19 20:17] LABS: Blood Urea Nitrogen 8 mg/dL (9-20); Calcium 9.3 mg/dL (8.4-10.2); Hemolysis Index 0
[2021-11-19 20:31] LABS: BUN/Creatinine Ratio 13
[2021-11-19] MEDS ORDERED: hydrALAZINE 20 MG/1 ML INJ IV ONE (21:46)
[2021-11-19] MEDS ORDERED: hydrALAZINE 10 MG TAB PO PRN (22:05)
[2021-11-19] MEDS: PROMETHAZINE 25 MG RECT SUPP PR PRN (22:07)
[2021-11-20] MEDS: DEXTROSE 10% IN WATER 1,000 ML IV SCH ×2 (01:40→21:39)
--- NOTE | 2021-11-20 09:15 | Progress Note ---
Assessment and Plan Assessment and plan: 61 YO Male with Vascular Dementia, Cerebral Atherosclerosis, CVA presents to ED for evaluation of CVA patient found to have clinical symptoms consistent with CVA complicated by dysphagia, dysarthria. Patient also appears to have expressive aphasia. Patient also found to have hypoglycemia and was treated with dextrose therapy with mild improvement in symptoms. Patient admitted to telemetry and initiated on stroke protocol. 61 YO Male with Vascular Dementia, Cerebral Atherosclerosis, CVA presents to ED for evaluation of CVA patient found to have clinical symptoms consistent with CVA complicated by dysphagia, dysarthria. Patient also appears to have expressive aphasia. Patient also found to have hypoglycemia and was treated with dextrose therapy with mild improvement in symptoms. Patient admitted to telemetry and initiated on stroke protocol. Acute CVA with right hemiparesis; Aspirin and statin, physical therapy occupational therapy rehabilitation Supportive care Subacute rehab versus SNF versus home with home health when stable Expressive aphasia; Speech therapy, supportive care Dysarthria; Speech therapy, supportive care Oropharyngeal dysphagia; GI evaluated the patient, status post PEG placement 11/16/2021 Continue tube feeding, aspiration precautions General debility; PT OT supportive care Subacute rehab Hypoglycemia; Closely monitor blood sugars Adjust medications as needed Avoid hypoglycemic episodes DVT prophylaxis; Subcu heparin. DC planning per case management Start tube feeding diet 11/13/2021. Continue secondary prevention with aspirin and Lipitor. Check MRI brain and echocardiogram. CTA of head and neck are negative. Await neurology consultation. Await PT and ST evaluations 11/14/2021. Continue secondary prevention with aspirin and Lipitor. MRI reveals a few small scattered areas of ischemia in the area of the corpus callosum left foot of the midline and minimal involvement in the ganglial capsular region on the right which could represent embolic phenomena. No focal mass, acute hemorrhage or hydrocephalus. No acute large territorial infarct seen. Echocardiogram did not reveal thrombi/emboli and no PFO. Physical therapy recommends subacute rehab. Speech therapy did not evaluate the patient yesterday. Await speech therapy evaluation to determine if patient will need Dobbhoff tube feeding. Continue D10 IV fluid for now 11/15/2021. Speech therapy reports patient is aspiration risk. Patient exhibits a pharyngeal phase dysphagia complicated by a swallowing reflex delay. We will consult GI for PEG tube placement. Placed DHT for now and consult dietitian for tube feeding 11/16/2021. PEG placement per GI today. Pt to d/c home with HH. Family ed ucation with TF. Also, CM to arrrange for supplies. 11/17/2021. PEG was placed yesterday and patient tolerated tube feedings. Await for case management to arrange for tube feeding supplies and education. Continue PT/OT/ST. Continue secondary prevention with aspirin and Lipitor 11/18/2021. Continue TF with aspiration precautions. Await for case management to arrange for tube feeding supplies and education. Continue PT/OT/ST. Continue secondary prevention with aspirin and Lipitor 11/19/2021. Continue TF with aspiration precautions. Family education with regards to tube feeding. Continue PT/OT/ST. Continue secondary prevention with aspirin and Lipitor. 11/20/2021; tube feeding diet, PEG is functional, DC planning per case management Home health PT/nurse/health aide Feeding pump with Pole, Kangaroo pump with tube with tub with flush Drainage dressing. Irrigation kit. Osmolite 40 mL/h To be set up by home health services at discharge History Interval history: I seen and examined the patient at the bedside Patient's chart and medications reviewed Patient feels slightly better no new complaints Vital signs noted Hospitalist Physical - Constitutional Vitals: Temp Pulse Resp BP Pulse Ox 97.8 F 66 20 151/93 93 11/20/21 08:09 11/20/21 04:09 11/20/21 08:09 11/20/21 08:09 11/20/21 04:09 General appearance: Present: no acute distress, cachectic, disheveled - EENT Eyes: Present: PERRL, EOM intact - Neck Neck: Present: supple, normal ROM - Respiratory Respiratory effort: normal Respiratory: bilateral: diminished, negative: rales, rhonchi, wheezing - Cardiovascular Rhythm: regular Heart Sounds: Present: S1 & S2 - Extremities Extremities: no ischemia, No edema - Abdominal General gastrointestinal: soft, non-tender, non-distended, normal bowel sounds - Integumentary Integumentary: Present: clear, warm - Psychiatric Psychiatric: cooperative, other - Neurologic Neurologic: moves all extremities HEART Score - HEART Score Troponin: Troponin T < 0.010 ng/mL (0.00-0.029) 11/12/21 16:48 Results - Labs CBC & Chem 7: 11/17/21 04:42 11/20/21 09:19 Labs: Laboratory Last Values WBC 13.9 K/mm3 (4.5-11.0) H 11/17/21 04:42 RBC 4.69 M/mm3 (3.65-5.03) 11/17/21 04:42 Hgb 12.6 gm/dl (11.8-15.2) 11/17/21 04:42 Hct 37.3 % (35.5-45.6) 11/17/21 04:42 MCV 80 fl (84-94) L 11/17/21 04:42 MCH 27 pg (28-32) L 11/17/21 04:42 MCHC 34 % (32-34) 11/17/21 04:42 RDW 13.3 % (13.2-15.2) 11/17/21 04:42 Plt Count 308 K/mm3 (140-440) 11/17/21 04:42 Lymph % (Auto) 9.4 % (13.4-35.0) L 11/17/21 04:42 [place] % (Auto) 5.8 % (0.0-7.3) 11/17/21 04:42 Eos % (Auto) 0.0 % (0.0-4.3) 11/17/21 04:42 Baso % (Auto) 0.7 % (0.0-1.8) 11/17/21 04:42 Lymph # (Auto) 1.3 K/mm3 (1.2-5.4) 11/17/21 04:42 [place] # (Auto) 0.8 K/mm3 (0.0-0.8) 11/17/21 04:42 Eos # (Auto) 0.0 K/mm3 (0.0-0.4) 11/17/21 04:42 Baso # (Auto) 0.1 K/mm3 (0.0-0.1) 11/17/21 04:42 Seg Neutrophils % 84.1 % (40.0-70.0) H 11/17/21 04:42 Seg Neutrophils # 11.7 K/mm3 (1.8-7.7) H 11/17/21 04:42 PT 13.3 Sec. (12.2-14.9) 11/15/21 18:53 INR 0.92 (0.87-1.13) 11/15/21 18:53 APTT 33.5 Sec. (24.2-36.6) 11/12/21 16:48 Thrombin Time 14.6 Sec. (15.1-19.6) L 11/12/21 16:48 Sodium 139 mmol/L (137-145) 11/19/21 18:14 Potassium 3.2 mmol/L (3.6-5.0) L 11/19/21 18:14 Chloride 101.0 mmol/L (98-107) 11/19/21 18:14 Carbon Dioxide 24 mmol/L (22-30) 11/19/21 18:14 Anion Gap 17 mmol/L 11/19/21 18:14 BUN 8 mg/dL (9-20) L 11/19/21 18:14 Creatinine 0.6 mg/dL (0.8-1.3) L 11/19/21 18:14 Estimated GFR > 60 ml/min 11/19/21 18:14 BUN/Creatinine Ratio 13 % 11/19/21 18:14 Glucose 100 mg/dL (75-100) 11/19/21 18:14 POC Glucose 105 mg/dL (70-105) 11/19/21 21:13 Calcium 9.3 mg/dL (8.4-10.2) 11/19/21 18:14 Magnesium 1.80 mg/dL (1.7-2.3) 11/12/21 16:48 Total Bilirubin 0.50 mg/dL (0.1-1.2) 11/12/21 16:48 AST 18 units/L (5-40) 11/12/21 16:48 ALT 25 units/L (7-56) 11/12/21 16:48 Alkaline Phosphatase 64 units/L (35-129) 11/12/21 16:48 Ammonia 12.0 umol/L (25-60) L 11/12/21 16:48 Total Creatine Kinase 93 units/L (55-170) 11/12/21 16:48 Total Creatine Kinase 93 units/L (55-170) 11/12/21 16:48 CK-MB (CK-2) < 1.0 ng/mL (0.0-4.0) 11/12/21 16:48 CK-MB (CK-2) Rel Index 1.0 (0-4) 11/12/21 16:48 Troponin T < 0.010 ng/mL (0.00-0.029) 11/12/21 16:48 Total Protein 6.5 g/dL (6.3-8.2) 11/12/21 16:48 Albumin 3.6 g/dL (3.9-5) L 11/12/21 16:48 Albumin/Globulin Ratio 1.2 % 11/12/21 16:48 Triglycerides 37 mg/dL (2-149) 11/19/21 09:53 Cholesterol 78 mg/dL (50-199) 11/19/21 09:53 LDL Cholesterol Direct 42 mg/dL (50-130) L 11/19/21 09:53 HDL Cholesterol 32 mg/dL (40-59) L 11/19/21 09:53 Cholesterol/HDL Ratio 2.43 % 11/19/21 09:53 TSH 1.040 mlU/mL (0.270-4.200) 11/12/21 16:48 Urine Color Yellow (Yellow) 11/12/21 18:06 Urine Turbidity Clear (Clear) 11/12/21 18:06 Urine pH 6.0 (5.0-7.0) 11/12/21 18:06 Ur Specific [place] 1.060 (1.003-1.030) H 11/12/21 18:06 Urine Protein <15 mg/dl mg/dL (Negative) 11/12/21 18:06 Urine Glucose (UA) Neg mg/dL (Negative) 11/12/21 18:06 Urine Ketones Tr mg/dL (Negative) 11/12/21 18:06 Urine Blood Neg (Negative) 11/12/21 18:06 Urine Nitrite Neg (Negative) 11/12/21 18:06 Urine Bilirubin Neg (Negative) 11/12/21 18:06 Urine Urobilinogen 4.0 mg/dL (<2.0) 11/12/21 18:06 Ur Leukocyte Esterase Neg (Negative) 11/12/21 18:06 Urine WBC (Auto) < 1.0 /HPF (0.0-6.0) 11/12/21 18:06 Urine RBC (Auto) 1.0 /HPF (0.0-6.0) 11/12/21 18:06 U Epithel Cells (Auto) 3.0 /HPF (0-13.0) 11/12/21 18:06 Urine Mucus 1+ /HPF 11/12/21 18:06 Walker/IV: Voiding Method Urinal Active Medications - Current Medications Current Medications: Generic Name Dose Route Start Last Admin Trade Name Freq PRN Reason Stop Dose Admin Acetaminophen 650 mg 11/12/21 19:10 Acetaminophen 325 Mg Tab PO Q4H PRN Pain, Mild (1-3) Lipase/Protease/Amylase 1 each 11/18/21 13:00 Lipase 10,500/Protease 25,000/Amylase 43,750 (Units) Dr Steven FEEDTUBE PRN PRN For Clogged Feeding Tube Aspirin 325 mg 11/13/21 10:00 11/19/21 09:20 Aspirin 325 Mg Tab PO 325 mg QDAY RUBY Administration Atorvastatin Calcium 40 mg 11/12/21 22:00 11/19/21 22:07 Atorvastatin 40 Mg Tab PO Not Given QHS RUBY Bisacodyl 10 mg 11/12/21 19:10 Bisacodyl 10 Mg Rect Supp [place] QDAY PRN Constipation Clopidogrel Bisulfate 75 mg 11/13/21 10:00 11/19/21 09:20 Clopidogrel 75 Mg Tab PO 75 mg QDAY RUBY Administration Dextrose 0 ml 11/13/21 07:05 11/16/21 08:49 Dextrose 10% *Hypoglycemia IV 250 ml PRN PRN Administration Hypoglycemia Hydralazine HCl 10 mg 11/20/21 00:00 Hydralazine 20 Mg/1 Ml Inj IV Q6H PRN Hypertension Hydromorphone HCl 0.5 mg 11/12/21 19:10 11/18/21 11:42 Hydromorphone 1 Mg/1 Ml Inj IV 0.5 mg Q23H PRN Administration Pain , Severe (7-10) Dextrose 1,000 mls @ 100 mls/hr 11/19/21 22:00 11/20/21 01:40 D10w IV 100 mls/hr DIRECT RUBY Administration Magnesium Hydroxide 30 ml 11/12/21 19:10 Magnesium Hydroxide (Mom) Oral Liqd Udc PO Q4H PRN Constipation Metoclopramide HCl 10 mg 11/12/21 19:10 Metoclopramide 10 Mg Tab PO Q6H PRN Nausea And Vomiting Ondansetron HCl 4 mg 11/12/21 19:10 11/19/21 12:28 Ondansetron 4 Mg/2 Ml Inj IV 4 mg Q8H PRN Administration Nausea And Vomiting Oxycodone/Acetaminophen 1 tab 11/12/21 19:10 Oxycodone /Acetaminophen 5-325mg Tab PO Q16H PRN Pain, Moderate (4-6) Promethazine HCl 25 mg 11/12/21 19:10 11/19/21 22:07 Promethazine 25 Mg Rect Supp [place] 25 mg Q6H PRN Administration Nausea And Vomiting Simple Syrup 15 ml 11/18/21 13:00 Simple Syrup 15 Ml FEEDTUBE PRN PRN Hypoglycemia Simple Syrup 30 ml 11/18/21 13:00 Simple Syrup 15 Ml FEEDTUBE PRN PRN Hypoglycemia Sodium Bicarbonate 325 mg 11/18/21 13:00 Sodium Bicarbonate 325 Mg Tab FEEDTUBE PRN PRN For Clogged Feeding Tube Sodium Chloride 10 ml 11/12/21 19:10 11/18/21 11:33 Sodium Chloride 0.9% 10 Ml Flush Syringe IV 10 ml PRN PRN Administration LINE FLUSH Nutrition/Malnutrition Assess - Dietary Evaluation Nutrition/Malnutrition Findings: Nutrition Notes Start: 11/13/21 13:00 Freq: Status: Active Protocol: Document 11/19/21 14:27 ANEESH (Rec: 11/19/21 14:54 ANEESH [id number]) Nutrition Notes Initial or Follow up Reassessment Current Diagnosis Stroke Other Pertinent Diagnosis Oropharyngeal Dysphagia, Disartria, R-hemiparesis, Debility, Hypoglycemia. Current Diet TF-Osmolite 1.5 [place] @ 40 ml/hr (since D 11/19). Labs/Tests 11/17: Na 136, K 3.2, BUN 5, Crea 0.7, Glu 111. Pertinent Medications 11/19: Nutritionally unremarkable. Height 5 ft 6 in Weight 57.5 kg [place] Body Weight (kg) 64.54 BMI 20.5 Weight change and time frame Discrepancy of 19.6 Kg body weight loss in 3 days reported (56.1 Kg). Likely a mistake, unable to reach RN by the phone. BW taken at [facility] is 57.5 Kg. Weight Status Appropriate Subjective/Other Information RD consult for TF tolerance assessment. RN called and said Pt is not tolerating TF since this morning 11/19 and is vomiting, RN asked to adjust or change TF formula, and Pt is going to be discharged and needs prescription. Contact will be Mrs. Soria @ . RN note: Initialized on 10:07, TF Jevity 1.2 started at 17ml/h; will increase by 10ml/h Q8H till goal of 57ml/h is reached. Patient tolerating well at this time. RN note: Initialized on 17:07, TF increased to 27ml /h. Next increase will be at 0100 to 37ml/h. RN note: Initialized on 07:33, Patient comfortable, sleepy, aroused by name, non verbal. Respiration even and unlabored on room air. Jevity running @57ml/hour via Peg tube. I will change formula to Osmolite 1.5 [place] to facilitate tolerance. Percent of energy/protein needs met: RN put TF on Hold since this morning. Iwill change Prescription. Prescribed TF-Osmolite 1.5 [place] @ 40 ml/hr provides for energy/protein needs (1,390 Kcal/58 g) during LOS, 83% Kcal; 100% AA. Burn Absent Trauma Absent GI Symptoms Other Difficulty In Swallowing Food Allergy No Skin Integrity/Comment Assessment WNL. Current % PO Other #1 Nutrition Diagnosis Swallowing difficulty Comments: Procedure 11/16: EGD with PEG tube Placement. Well Tolerated , according to Operative Report. Findings: No gross lesion of the duodenum, minimal gastritis, 2 cm hiatal hernia. TF can be started on 11/17 if normal bowed sounds and no significant tenderness at palpatioin. Diagnosis Progress(for reassessment Resolved documentation) Is patient on ventilator? No Is Patient Ambulatory and/or Out of Bed Yes REE-(Rabun-St. Jeor-ambulatory/OOB) [ 1706.575 [id number]] Kcal/Kg value to use for calculation 29 Approximate Energy Requirements Using 1668 kcal/Kg Calculation Used for Recommendations Kcal/kg Additional Notes Protein: 0.8-1 g/Kg ABW; 46-58 g/day. Fluids: 1 ml/Kcal, or as per MD. Nutrition Intervention Nutrition Support: Change formula. Start Osmolite 1.5 [place] @ 40 ml /hr. Flush: 160 ml water Q 4 hr, or as per MD. Kcal 1,390 Protein (gm) 58 Carbohydrates (gm) 189 Fat (gm) 46 Fluid (mL) 706 Fiber (gm) 0 % RDI: 83% Kcal; 100% AA. Goal #1 Provide at least 75% of energy /protein needs through Enteral Feeding during LOS. Goal #2 Maintain body weight within +/ -3% of admission body weight during LOS. Follow-Up By: 11/22/21 Additional Comments Continue monitoring TF tolerance and BM.
[2021-11-20] MEDS: CLOPIDOGREL 75 MG TAB PO SCH (10:50)
[2021-11-20] MEDS: ASPIRIN 325 MG TAB PO SCH (10:50)
--- NOTE | 2021-11-20 13:15 | Progress Note ---
Assessment and Plan Assessment and Plan 61 YO Male with Vascular Dementia, Cerebral Atherosclerosis, CVA presents to ED for evaluation. Patient has diminished cognition and is unable to provide detailed history. Patient history taken from EMS staff, ED staff, as well as patient family who was at bedside during exam and interview. As per family member reports the patient has experienced sudden onset weakness on his right side as well as increased confusion. - Patient Problems # New onset of right side weakness and speech impairment -r/o CVA (cerebral vascular accident) -NIH#5 -CT brain showed bilateral hypodense lesions -CTA brain and neck are unremarkable -MRI brain showed scattered emboli bilateral L>R r/o AF -Started On ASA and Plavix plus lipitor -echo with buble study showed EF#55-60% -LDL is #42 -Pt/ST evaluate -cardiac monitoring -Consider MCOT on D/C -Consider cardiology evaluation !!! RICH # Right hemiparesis -Secondary to CVA, physical therapy consulted, supportive care. -need PT/ST evaluate # Dysarthria and Dysphagia Speech therapy consulted, supportive care, -had peg tube feeding # Debility Physical therapy consulted, supportive care. # Hypoglycemia -Dextrose therapy. Repeat BMP in a.m. # DVT prophylaxis -SCD to bilateral lower extremities while in bed # Advance care planning -disease education conducted, care plan discussed, diagnoses discussed, prognosis discussed, patient is full code. +30 minutes. Subjective Date of service: 11/20/21 Principal diagnosis: PEG check Interval history: slightly sleepy move left side to stimuli MRI is noted he is with peg tube feeding Objective - Vital Sign Vital Signs - 12hr 11/20/21 11/20/21 11/20/21 02:00 04:09 08:09 Temperature 98.5 F 97.8 F Pulse Rate 66 Respiratory 18 20 Rate Blood Pressure 144/84 151/93 O2 Sat by Pulse 96 93 Oximetry - General Apperance Constitutional: uncomfortable - EENT EENT: PERRL, mucous membranes moist - Respiratory Respiratory: lungs clear, rhonchi - Cardiovascular Cardiovascular: regular rate, normal S1, normal S2 Extremities: no peripheral edema bilat, no clubbing, cyanosis - Gastrointestinal Gastrointestinal: normoactive bowel sounds - Integumentary Integumentary: normal - Neurologic Cranial nerve examination: PERRL, EOMI, facial droop Speech examination: other (no speech out put ) Detailed motor examination: other (right side is 3/5 upper > lower ) - Laboratory Findings CBC and BMP: 11/17/21 04:42 11/20/21 09:19 Abnormal Lab Findings: Abnormal Labs 11/12/21 11/12/21 11/12/21 16:48 16:48 16:48 WBC MCV 81 L MCH MCHC 35 H Lymph % (Auto) Seg Neutrophils % 76.6 H Seg Neutrophils # Thrombin Time 14.6 L Sodium 133 L Potassium Chloride 96.7 L BUN Creatinine Glucose POC Glucose Ammonia Albumin 3.6 L LDL Cholesterol Direct HDL Cholesterol Ur Specific [place] 11/12/21 11/12/21 11/12/21 16:48 17:12 18:06 WBC MCV MCH MCHC Lymph % (Auto) Seg Neutrophils % Seg Neutrophils # Thrombin Time Sodium Potassium Chloride BUN Creatinine Glucose POC Glucose 61 L Ammonia 12.0 L Albumin LDL Cholesterol Direct HDL Cholesterol Ur Specific [place] 1.060 H 11/12/21 11/13/21 11/13/21 23:01 07:29 15:47 WBC MCV MCH MCHC Lymph % (Auto) Seg Neutrophils % Seg Neutrophils # Thrombin Time Sodium Potassium Chloride BUN Creatinine Glucose POC Glucose 118 H 148 H 125 H Ammonia Albumin LDL Cholesterol Direct HDL Cholesterol Ur Specific [place] 11/14/21 11/14/21 11/15/21 16:15 21:47 16:52 WBC MCV MCH MCHC Lymph % (Auto) Seg Neutrophils % Seg Neutrophils # Thrombin Time Sodium Potassium Chloride BUN Creatinine Glucose POC Glucose 179 H 154 H 126 H Ammonia Albumin LDL Cholesterol Direct HDL Cholesterol Ur Specific [place] 11/15/21 11/15/21 11/16/21 18:53 18:53 07:45 WBC 12.3 H MCV 81 L MCH MCHC Lymph % (Auto) Seg Neutrophils % Seg Neutrophils # Thrombin Time Sodium Potassium 3.1 L D Chloride 97.4 L BUN 4 L Creatinine Glucose 130 H POC Glucose 118 H Ammonia Albumin LDL Cholesterol Direct HDL Cholesterol Ur Specific [place] 11/16/21 11/17/21 11/17/21 20:04 04:42 04:42 WBC 13.9 H MCV 80 L MCH 27 L MCHC Lymph % (Auto) 9.4 L Seg Neutrophils % 84.1 H Seg Neutrophils # 11.7 H Thrombin Time Sodium 136 L Potassium 3.2 L Chloride BUN 5 L Creatinine 0.7 L Glucose 111 H POC Glucose 145 H Ammonia Albumin LDL Cholesterol Direct HDL Cholesterol Ur Specific [place] 11/17/21 11/18/21 11/18/21 07:29 08:00 22:03 WBC MCV MCH MCHC Lymph % (Auto) Seg Neutrophils % Seg Neutrophils # Thrombin Time Sodium Potassium Chloride BUN Creatinine Glucose POC Glucose 107 H 116 H 124 H Ammonia Albumin LDL Cholesterol Direct HDL Cholesterol Ur Specific [place] 11/19/21 11/19/21 11/19/21 07:37 09:53 18:14 WBC MCV MCH MCHC Lymph % (Auto) Seg Neutrophils % Seg Neutrophils # Thrombin Time Sodium Potassium 3.2 L Chloride BUN 8 L Creatinine 0.6 L Glucose POC Glucose 119 H Ammonia Albumin LDL Cholesterol Direct 42 L HDL Cholesterol 32 L Ur Specific [place] 11/20/21 09:19 WBC MCV MCH MCHC Lymph % (Auto) Seg Neutrophils % Seg Neutrophils # Thrombin Time Sodium Potassium 3.1 L Chloride BUN Creatinine Glucose POC Glucose Ammonia Albumin LDL Cholesterol Direct HDL Cholesterol Ur Specific [place]
[2021-11-20] MEDS ORDERED: SODIUM BICARBONATE 325 MG TAB FEEDTUBE PRN (17:47)
[2021-11-20] MEDS: HEPARIN 5,000 UNIT/1 ML VIAL SUB-Q SCH (21:38)
[2021-11-20] MEDS: PROMETHAZINE 25 MG RECT SUPP PR PRN (21:39)
[2021-11-21] MEDS: ONDANSETRON 4 MG/2 ML INJ IV PRN (03:11)
[2021-11-21] MEDS: PROMETHAZINE 25 MG RECT SUPP PR PRN (05:45)
[2021-11-21] MEDS: DEXTROSE 10% IN WATER 1,000 ML IV SCH ×3 (06:07→18:24)
[2021-11-21] MEDS: HEPARIN 5,000 UNIT/1 ML VIAL SUB-Q SCH ×3 (06:08→21:51)
--- NOTE | 2021-11-21 09:00 | Progress Note ---
Assessment and Plan Assessment and plan: 61 YO Male with Vascular Dementia, Cerebral Atherosclerosis, CVA presents to ED for evaluation of CVA patient found to have clinical symptoms consistent with CVA complicated by dysphagia, dysarthria. Patient also appears to have expressive aphasia. Patient also found to have hypoglycemia and was treated with dextrose therapy with mild improvement in symptoms. Patient admitted to telemetry and initiated on stroke protocol. 61 YO Male with Vascular Dementia, Cerebral Atherosclerosis, CVA presents to ED for evaluation of CVA patient found to have clinical symptoms consistent with CVA complicated by dysphagia, dysarthria. Patient also appears to have expressive aphasia. Patient also found to have hypoglycemia and was treated with dextrose therapy with mild improvement in symptoms. Patient admitted to telemetry and initiated on stroke protocol. Neuro work-up as mentioned below --Acute CVA with right hemiparesis; Aspirin and statin, physical therapy occupational therapy rehabilitation Supportive care Subacute rehab versus SNF versus home with home health when s table MRI brain; a few small scattered areas of ischemia embolic phenomenon should be considered otherwise no focal mass acute hemorrhage hydrocephalus or acute large territorial infarct seen sinus disease noted --Embolic CVA ; per MRI brain ; Neurology recommended RICH to rule out cardiac source of embolic phenomena --Severe toxic metabolic encephalopathy; Neuro work-up reviewed Acute CVA with right hemiparesis Continue supportive care --expressive aphasia; Speech therapy, supportive care --Dysarthria; Speech therapy, supportive care --Oropharyngeal dysphagia; GI evaluated the patient, status post PEG placement 11/16/2021 Continue tube feeding, aspiration precautions --General debility; PT OT supportive care Subacute rehab --Hypoglycemia; Closely monitor blood sugars Adjust medications as needed Avoid hypoglycemic episodes --DVT prophylaxis; Subcu heparin. Follow-up PT OT recommendations Closely monitor the patient and adjust management as needed I discussed with the neurology, I discussed with cardiology DC planning per case management Start tube feeding diet Closely monitor the patient and adjust management as needed Plan of care reviewed with the patient and his nurse. Patient is embolic CVA Neurology recommended RICH to rule out cardioembolic causes of embolic CVA. Cardiology consult requested for RICH We will also discuss with family, the goals of treatment Brief history and daily hospital course; Patient with acute embolic CVA, neuro work-up reviewed, neurologist recommended RICH study. Closely monitor 11/13/2021. Continue secondary prevention with aspirin and Lipitor. Check MRI brain and echocardiogram. CTA of head and neck are negative. Await neurology consultation. Await PT and ST evaluations 11/14/2021. Continue secondary prevention with aspirin and Lipitor. MRI reveals a few small scattered areas of ischemia in the area of the corpus callosum left foot of the midline and minimal involvement in the ganglial capsular region on the right which could represent embolic phenomena. No focal mass, acute hemorrhage or hydrocephalus. No acute large territorial infarct seen. Echocardiogram did not reveal thrombi/emboli and no PFO. Physical therapy recommends subacute rehab. Speech therapy did not evaluate the patient yesterday. Await speech therapy evaluation to determine if patient will need Dobbhoff tube feeding. Continue D10 IV fluid for now 11/15/2021. Speech therapy reports patient is aspiration risk. Patient exhibits a pharyngeal phase dysphagia complicated by a swallowing reflex delay. We will consult GI for PEG tube placement. Placed DHT for now and consult dietitian for tube feeding 11/16/2021. PEG placement per GI today. Pt to d/c home with HH. Family education with TF. Also, CM to arrrange for supplies. 11/17/2021. PEG was placed yesterday and patient tolerated tube feedings. Await for case management to arrange for tube feeding supplies and education. Continue PT/OT/ST. Continue secondary prevention with aspirin and Lipitor 11/18/2021. Continue TF with aspiration precautions. Await for case management to arrange for tube feeding supplies and education. Continue PT/OT/ST. Continue secondary prevention with aspirin and Lipitor 11/19/2021. Continue TF with aspiration precautions. Family education with regards to tube feeding. Continue PT/OT/ST. Continue secondary prevention with aspirin and Lipitor. 11/20/2021; tube feeding diet, PEG is functional, DC planning per case management Home health PT/nurse/health aide Feeding pump with Pole, Kangaroo pump with tube with tub with flush Drainage dressing. Irrigation kit. Osmolite 40 mL/h To be set up by home health services at discharge 11/21/21; possible embolic CVA neuro recommended RICH, Cardiology consulted ,RICH requested History Interval history: Have seen and examined the patient at the bedside Patient's chart and medications reviewed Patient slightly lethargic No new overnight events reported by nursing Hospitalist Physical - Constitutional Vitals: Temp Pulse Resp BP Pulse Ox 98.1 F 81 18 98/58 95 11/21/21 03:54 11/21/21 03:54 11/21/21 03:54 11/21/21 03:54 11/21/21 08:15 General appearance: Present: no acute distress, cachectic, disheveled, other (Lethargic) - EENT Eyes: Present: PERRL, EOM intact - Neck Neck: Present: supple, normal ROM - Respiratory Respiratory effort: normal Respiratory: bilateral: diminished, negative: rales, rhonchi, wheezing - Cardiovascular Rhythm: regular Heart Sounds: Present: S1 & S2 - Extremities Extremities: no ischemia, No edema - Abdominal General gastrointestinal: soft, non-tender, non-distended, normal bowel sounds - Integumentary Integumentary: Present: clear, warm - Psychiatric Psychiatric: appropriate mood/affect, cooperative - Neurologic Neurologic: moves all extremities HEART Score - HEART Score Troponin: Troponin T < 0.010 ng/mL (0.00-0.029) 11/12/21 16:48 Results - Labs CBC & Chem 7: 11/17/21 04:42 11/20/21 09:19 Labs: Laboratory Last Values WBC 13.9 K/mm3 (4.5-11.0) H 11/17/21 04:42 RBC 4.69 M/mm3 (3.65-5.03) 11/17/21 04:42 Hgb 12.6 gm/dl (11.8-15.2) 11/17/21 04:42 Hct 37.3 % (35.5-45.6) 11/17/21 04:42 MCV 80 fl (84-94) L 11/17/21 04:42 MCH 27 pg (28-32) L 11/17/21 04:42 MCHC 34 % (32-34) 11/17/21 04:42 RDW 13.3 % (13.2-15.2) 11/17/21 04:42 Plt Count 308 K/mm3 (140-440) 11/17/21 04:42 Lymph % (Auto) 9.4 % (13.4-35.0) L 11/17/21 04:42 Trigg % (Auto) 5.8 % (0.0-7.3) 11/17/21 04:42 Eos % (Auto) 0.0 % (0.0-4.3) 11/17/21 04:42 Baso % (Auto) 0.7 % (0.0-1.8) 11/17/21 04:42 Lymph # (Auto) 1.3 K/mm3 (1.2-5.4) 11/17/21 04:42 Trigg # (Auto) 0.8 K/mm3 (0.0-0.8) 11/17/21 04:42 Eos # (Auto) 0.0 K/mm3 (0.0-0.4) 11/17/21 04:42 Baso # (Auto) 0.1 K/mm3 (0.0-0.1) 11/17/21 04:42 Seg Neutrophils % 84.1 % (40.0-70.0) H 11/17/21 04:42 Seg Neutrophils # 11.7 K/mm3 (1.8-7.7) H 11/17/21 04:42 PT 13.3 Sec. (12.2-14.9) 11/15/21 18:53 INR 0.92 (0.87-1.13) 11/15/21 18:53 APTT 33.5 Sec. (24.2-36.6) 11/12/21 16:48 Thrombin Time 14.6 Sec. (15.1-19.6) L 11/12/21 16:48 Sodium 139 mmol/L (137-145) 11/19/21 18:14 Potassium 3.1 mmol/L (3.6-5.0) L 11/20/21 09:19 Chloride 101.0 mmol/L (98-107) 11/19/21 18:14 Carbon Dioxide 24 mmol/L (22-30) 11/19/21 18:14 Anion Gap 17 mmol/L 11/19/21 18:14 BUN 8 mg/dL (9-20) L 11/19/21 18:14 Creatinine 0.6 mg/dL (0.8-1.3) L 11/19/21 18:14 Estimated GFR > 60 ml/min 11/19/21 18:14 BUN/Creatinine Ratio 13 % 11/19/21 18:14 Glucose 100 mg/dL (75-100) 11/19/21 18:14 POC Glucose 159 mg/dL (70-105) H 11/21/21 07:41 Calcium 9.3 mg/dL (8.4-10.2) 11/19/21 18:14 Magnesium 2.10 mg/dL (1.7-2.3) 11/20/21 09:19 Total Bilirubin 0.50 mg/dL (0.1-1.2) 11/12/21 16:48 AST 18 units/L (5-40) 11/12/21 16:48 ALT 25 units/L (7-56) 11/12/21 16:48 Alkaline Phosphatase 64 units/L (35-129) 11/12/21 16:48 Ammonia 12.0 umol/L (25-60) L 11/12/21 16:48 Total Creatine Kinase 93 units/L (55-170) 11/12/21 16:48 Total Creatine Kinase 93 units/L (55-170) 11/12/21 16:48 CK-MB (CK-2) < 1.0 ng/mL (0.0-4.0) 11/12/21 16:48 CK-MB (CK-2) Rel Index 1.0 (0-4) 11/12/21 16:48 Troponin T < 0.010 ng/mL (0.00-0.029) 11/12/21 16:48 Total Protein 6.5 g/dL (6.3-8.2) 11/12/21 16:48 Albumin 3.6 g/dL (3.9-5) L 11/12/21 16:48 Albumin/Globulin Ratio 1.2 % 11/12/21 16:48 Triglycerides 37 mg/dL (2-149) 11/19/21 09:53 Cholesterol 78 mg/dL (50-199) 11/19/21 09:53 LDL Cholesterol Direct 42 mg/dL (50-130) L 11/19/21 09:53 HDL Cholesterol 32 mg/dL (40-59) L 11/19/21 09:53 Cholesterol/HDL Ratio 2.43 % 11/19/21 09:53 TSH 1.040 mlU/mL (0.270-4.200) 11/12/21 16:48 Urine Color Yellow (Yellow) 11/12/21 18:06 Urine Turbidity Clear (Clear) 11/12/21 18:06 Urine pH 6.0 (5.0-7.0) 11/12/21 18:06 Ur Specific [place] 1.060 (1.003-1.030) H 11/12/21 18:06 Urine Protein <15 mg/dl mg/dL (Negative) 11/12/21 18:06 Urine Glucose (UA) Neg mg/dL (Negative) 11/12/21 18:06 Urine Ketones Tr mg/dL (Negative) 11/12/21 18:06 Urine Blood Neg (Negative) 11/12/21 18:06 Urine Nitrite Neg (Negative) 11/12/21 18:06 Urine Bilirubin Neg (Negative) 11/12/21 18:06 Urine Urobilinogen 4.0 mg/dL (<2.0) 11/12/21 18:06 Ur Leukocyte Esterase Neg (Negative) 11/12/21 18:06 Urine WBC (Auto) < 1.0 /HPF (0.0-6.0) 11/12/21 18:06 Urine RBC (Auto) 1.0 /HPF (0.0-6.0) 11/12/21 18:06 U Epithel Cells (Auto) 3.0 /HPF (0-13.0) 11/12/21 18:06 Urine Mucus 1+ /HPF 11/12/21 18:06 Walker/IV: Voiding Method Condom Catheter Active Medications - Current Medications Current Medications: Generic Name Dose Route Start Last Admin Trade Name Freq PRN Reason Stop Dose Admin Acetaminophen 650 mg 11/12/21 19:10 Acetaminophen 325 Mg Tab PO Q4H PRN Pain, Mild (1-3) Lipase/Protease/Amylase 1 each 11/18/21 13:00 Lipase 10,500/Protease 25,000/Amylase 43,750 (Units) Dr Steven FEEDTUBE PRN PRN For Clogged Feeding Tube Aspirin 325 mg 11/13/21 10:00 11/20/21 10:50 Aspirin 325 Mg Tab PO 325 mg QDAY RUBY Administration Atorvastatin Calcium 40 mg 11/12/21 22:00 11/21/21 03:03 Atorvastatin 40 Mg Tab PO Not Given QHS RUBY Bisacodyl 10 mg 11/12/21 19:10 Bisacodyl 10 Mg Rect Supp MT QDAY PRN Constipation Clopidogrel Bisulfate 75 mg 11/13/21 10:00 11/20/21 10:50 Clopidogrel 75 Mg Tab PO 75 mg QDAY RUBY Administration Dextrose 0 ml 11/13/21 07:05 11/16/21 08:49 Dextrose 10% *Hypoglycemia IV 250 ml PRN PRN Administration Hypoglycemia Heparin Sodium (Porcine) 5,000 unit 11/20/21 22:00 11/21/21 06:08 Heparin 5,000 Unit/1 Ml Vial SUB-Q 5,000 unit Q8HR RUBY Administration Hydralazine HCl 10 mg 11/20/21 00:00 Hydralazine 20 Mg/1 Ml Inj IV Q6H PRN Hypertension Hydromorphone HCl 0.5 mg 11/12/21 19:10 11/18/21 11:42 Hydromorphone 1 Mg/1 Ml Inj IV 0.5 mg Q23H PRN Administration Pain , Severe (7-10) Dextrose 1,000 mls @ 100 mls/hr 11/19/21 22:00 11/21/21 06:07 D10w IV 100 mls/hr DIRECT RUBY Administration Magnesium Hydroxide 30 ml 11/12/21 19:10 Magnesium Hydroxide (Mom) Oral Liqd Udc PO Q4H PRN Constipation Metoclopramide HCl 10 mg 11/12/21 19:10 Metoclopramide 10 Mg Tab PO Q6H PRN Nausea And Vomiting Ondansetron HCl 4 mg 11/12/21 19:10 11/21/21 03:11 Ondansetron 4 Mg/2 Ml Inj IV 4 mg Q8H PRN Administration Nausea And Vomiting Oxycodone/Acetaminophen 1 tab 11/12/21 19:10 Oxycodone /Acetaminophen 5-325mg Tab PO Q16H PRN Pain, Moderate (4-6) Promethazine HCl 25 mg 11/12/21 19:10 11/21/21 05:45 Promethazine 25 Mg Rect Supp MT 25 mg Q6H PRN Administration Nausea And Vomiting Simple Syrup 15 ml 11/18/21 13:00 Simple Syrup 15 Ml FEEDTUBE PRN PRN Hypoglycemia Simple Syrup 30 ml 11/18/21 13:00 Simple Syrup 15 Ml FEEDTUBE PRN PRN Hypoglycemia Sodium Bicarbonate 325 mg 11/18/21 13:00 Sodium Bicarbonate 325 Mg Tab FEEDTUBE PRN PRN For Clogged Feeding Tube Sodium Chloride 10 ml 11/12/21 19:10 11/20/21 21:40 Sodium Chloride 0.9% 10 Ml Flush Syringe IV 10 ml PRN PRN Administration LINE FLUSH Nutrition/Malnutrition Assess - Dietary Evaluation Nutrition/Malnutrition Findings: Nutrition Notes Start: 11/13/21 13:00 Freq: Status: Active Protocol: Document 11/19/21 14:27 ANEESH (Rec: 11/19/21 14:54 ANEESH [email or web address]) Nutrition Notes Initial or Follow up Reassessment Current Diagnosis Stroke Other Pertinent Diagnosis Oropharyngeal Dysphagia, Disartria, R-hemiparesis, Debility, Hypoglycemia. Current Diet TF-Osmolite 1.5 [place] @ 40 ml/hr (since D 11/19). Labs/Tests 11/17: Na 136, K 3.2, BUN 5, Crea 0.7, Glu 111. Pertinent Medications 11/19: Nutritionally unremarkable. Height 5 ft 6 in Weight 57.5 kg [place] Body Weight (kg) 64.54 BMI 20.5 Weight change and time frame Discrepancy of 19.6 Kg body weight loss in 3 days reported (56.1 Kg). Likely a mistake, unable to reach RN by the phone. BW taken at [facility] is 57.5 Kg. Weight Status Appropriate Subjective/Other Information RD consult for TF tolerance assessment. RN called and said Pt is not tolerating TF since this morning 11/19 and is vomiting, RN asked to adjust or change TF formula, and Pt is going to be discharged and needs prescription. Contact will be Mrs. Soria @ . RN note: Initialized on 10:07, TF Jevity 1.2 started at 17ml/h; will increase by 10ml/h Q8H till goal of 57ml/h is reached. Patient tolerating well at this time. RN note: Initialized on 17:07, TF increased to 27ml /h. Next increase will be at 0100 to 37ml/h. RN note: Initialized on 07:33, Patient comfortable, sleepy, aroused by name, non verbal. Respiration even and unlabored on room air. Jevity running @57ml/hour via Peg tube. I will change formula to Osmolite 1.5 Bijan to facilitate tolerance. Percent of energy/protein needs met: RN put TF on Hold since this morning. Iwill change Prescription. Prescribed TF-Osmolite 1.5 Bijan @ 40 ml/hr provides for energy/protein needs (1,390 Kcal/58 g) during LOS, 83% Kcal; 100% AA. Burn Absent Trauma Absent GI Symptoms Other Difficulty In Swallowing Food Allergy No Skin Integrity/Comment Assessment WNL. Current % PO Other #1 Nutrition Diagnosis Swallowing difficulty Comments: Procedure 11/16: EGD with PEG tube Placement. Well Tolerated , according to Operative Report. Findings: No gross lesion of the duodenum, minimal gastritis, 2 cm hiatal hernia. TF can be started on 11/17 if normal bowed sounds and no significant tenderness at palpatioin. Diagnosis Progress(for reassessment Resolved documentation) Is patient on ventilator? No Is Patient Ambulatory and/or Out of Bed Yes REE-([place]-ambulatory/OOB) [ 1706.575 [id number]] Kcal/Kg value to use for calculation 29 Approximate Energy Requirements Using 1668 kcal/Kg Calculation Used for Recommendations Kcal/kg Additional Notes Protein: 0.8-1 g/Kg ABW; 46-58 g/day. Fluids: 1 ml/Kcal, or as per MD. Nutrition Intervention Nutrition Support: Change formula. Start Osmolite 1.5 Bijan @ 40 ml /hr. Flush: 160 ml water Q 4 hr, or as per MD. Kcal 1,390 Protein (gm) 58 Carbohydrates (gm) 189 Fat (gm) 46 Fluid (mL) 706 Fiber (gm) 0 % RDI: 83% Kcal; 100% AA. Goal #1 Provide at least 75% of energy /protein needs through Enteral Feeding during LOS. Goal #2 Maintain body weight within +/ -3% of admission body weight during LOS. Follow-Up By: 11/22/21 Additional Comments Continue monitoring TF tolerance and BM.
[2021-11-21] MEDS: CLOPIDOGREL 75 MG TAB PO SCH (09:39)
[2021-11-21] MEDS: ASPIRIN 325 MG TAB PO SCH (09:39)
--- NOTE | 2021-11-21 11:57 | Progress Note ---
Assessment and Plan Assessment and Plan 61 YO Male with Vascular Dementia, Cerebral Atherosclerosis, CVA presents to ED for evaluation. Patient has diminished cognition and is unable to provide detailed history. Patient history taken from EMS staff, ED staff, as well as patient family who was at bedside during exam and interview. As per family member reports the patient has experienced sudden onset weakness on his right side as well as increased confusion. - Patient Problems # New onset of right side weakness and speech impairment -r/o CVA (cerebral vascular accident) -NIH#5 -CT brain showed bilateral hypodense lesions -CTA brain and neck are unremarkable -MRI brain showed scattered emboli bilateral L>R r/o AF -Started On ASA and Plavix plus lipitor -echo with buble study showed EF#55-60% -LDL is #42 -Pt/ST evaluate -cardiac monitoring -Consider MCOT on D/C -Consider cardiology evaluation !!! RICH -will repeat CT brain due to lethargy # Right hemiparesis -Secondary to CVA, physical therapy consulted, supportive care. -need PT/ST evaluate # Dysarthria and Dysphagia Speech therapy consulted, supportive care, -had peg tube feeding # Debility Physical therapy consulted, supportive care. # Hypoglycemia -Dextrose therapy. Repeat BMP in a.m. # DVT prophylaxis -SCD to bilateral lower extremities while in bed # Advance care planning -disease education conducted, care plan discussed, diagnoses discussed, prognosis discussed, patient is full code. +30 minutes. Subjective Date of service: 11/21/21 Principal diagnosis: PEG check Interval history: slightly sleepy move left side to stimuli , continues to be lethargic MRI is noted he is with peg tube feeding Objective - Vital Sign Vital Signs - 12hr 11/20/21 11/21/21 11/21/21 23:57 02:00 03:54 Temperature 98.6 F 98.1 F Pulse Rate 87 81 Pulse Rate [ 74 From Monitor] Respiratory 18 17 18 Rate Blood Pressure 127/75 98/58 O2 Sat by Pulse 96 98 98 Oximetry 11/21/21 08:15 Temperature Pulse Rate Pulse Rate [ From Monitor] Respiratory Rate Blood Pressure O2 Sat by Pulse 95 Oximetry - General Apperance Constitutional: comfortable - EENT EENT: PERRL, mucous membranes moist - Respiratory Respiratory: lungs clear, rhonchi - Cardiovascular Cardiovascular: regular rate, normal S1, normal S2 Extremities: no peripheral edema bilat, no clubbing, cyanosis - Gastrointestinal Gastrointestinal: normoactive bowel sounds - Integumentary Integumentary: normal - Neurologic Cranial nerve examination: PERRL, EOMI, facial droop Speech examination: other (no speech output ,follow only simple commands ) Detailed motor examination: other (right side 2-3 /5 move left side ) - Laboratory Findings CBC and BMP: 11/17/21 04:42 11/20/21 09:19 Abnormal Lab Findings: Abnormal Labs 11/12/21 11/12/21 11/12/21 16:48 16:48 16:48 WBC MCV 81 L MCH MCHC 35 H Lymph % (Auto) Seg Neutrophils % 76.6 H Seg Neutrophils # Thrombin Time 14.6 L Sodium 133 L Potassium Chloride 96.7 L BUN Creatinine Glucose POC Glucose Ammonia Albumin 3.6 L LDL Cholesterol Direct HDL Cholesterol Ur Specific [place] 11/12/21 11/12/21 11/12/21 16:48 17:12 18:06 WBC MCV MCH MCHC Lymph % (Auto) Seg Neutrophils % Seg Neutrophils # Thrombin Time Sodium Potassium Chloride BUN Creatinine Glucose POC Glucose 61 L Ammonia 12.0 L Albumin LDL Cholesterol Direct HDL Cholesterol Ur Specific [place] 1.060 H 11/12/21 11/13/21 11/13/21 23:01 07:29 15:47 WBC MCV MCH MCHC Lymph % (Auto) Seg Neutrophils % Seg Neutrophils # Thrombin Time Sodium Potassium Chloride BUN Creatinine Glucose POC Glucose 118 H 148 H 125 H Ammonia Albumin LDL Cholesterol Direct HDL Cholesterol Ur Specific [place] 11/14/21 11/14/21 11/15/21 16:15 21:47 16:52 WBC MCV MCH MCHC Lymph % (Auto) Seg Neutrophils % Seg Neutrophils # Thrombin Time Sodium Potassium Chloride BUN Creatinine Glucose POC Glucose 179 H 154 H 126 H Ammonia Albumin LDL Cholesterol Direct HDL Cholesterol Ur Specific [place] 11/15/21 11/15/21 11/16/21 18:53 18:53 07:45 WBC 12.3 H MCV 81 L MCH MCHC Lymph % (Auto) Seg Neutrophils % Seg Neutrophils # Thrombin Time Sodium Potassium 3.1 L D Chloride 97.4 L BUN 4 L Creatinine Glucose 130 H POC Glucose 118 H Ammonia Albumin LDL Cholesterol Direct HDL Cholesterol Ur Specific [place] 11/16/21 11/17/21 11/17/21 20:04 04:42 04:42 WBC 13.9 H MCV 80 L MCH 27 L MCHC Lymph % (Auto) 9.4 L Seg Neutrophils % 84.1 H Seg Neutrophils # 11.7 H Thrombin Time Sodium 136 L Potassium 3.2 L Chloride BUN 5 L Creatinine 0.7 L Glucose 111 H POC Glucose 145 H Ammonia Albumin LDL Cholesterol Direct HDL Cholesterol Ur Specific [place] 11/17/21 11/18/21 11/18/21 07:29 08:00 22:03 WBC MCV MCH MCHC Lymph % (Auto) Seg Neutrophils % Seg Neutrophils # Thrombin Time Sodium Potassium Chloride BUN Creatinine Glucose POC Glucose 107 H 116 H 124 H Ammonia Albumin LDL Cholesterol Direct HDL Cholesterol Ur Specific [place] 11/19/21 11/19/21 11/19/21 07:37 09:53 18:14 WBC MCV MCH MCHC Lymph % (Auto) Seg Neutrophils % Seg Neutrophils # Thrombin Time Sodium Potassium 3.2 L Chloride BUN 8 L Creatinine 0.6 L Glucose POC Glucose 119 H Ammonia Albumin LDL Cholesterol Direct 42 L HDL Cholesterol 32 L Ur Specific [place] 11/20/21 11/20/21 11/20/21 07:37 09:19 11:42 WBC MCV MCH MCHC Lymph % (Auto) Seg Neutrophils % Seg Neutrophils # Thrombin Time Sodium Potassium 3.1 L Chloride BUN Creatinine Glucose POC Glucose 146 H 154 H Ammonia Albumin LDL Cholesterol Direct HDL Cholesterol Ur Specific [place] 11/20/21 11/20/21 11/21/21 16:13 21:30 07:41 WBC MCV MCH MCHC Lymph % (Auto) Seg Neutrophils % Seg Neutrophils # Thrombin Time Sodium Potassium Chloride BUN Creatinine Glucose POC Glucose 111 H 108 H 159 H Ammonia Albumin LDL Cholesterol Direct HDL Cholesterol Ur Specific [place]
--- NOTE | 2021-11-21 12:42 | Cat Scan Report ---
CT HEAD WITHOUT CONTRAST INDICATION / CLINICAL INFORMATION: cva. TECHNIQUE: Axial imaging performed from the skull apex through the skull base without the use of cont rast. Sagittal and coronal reformatted images. All CT scans at this location are performed using CT dose reduction for ALARA by means of automated exposure control. COMPARISON: CT head dated 11/12/2021. MR brain dated 11/19/2021. FINDINGS: CEREBRAL PARENCHYMA: Moderate chronic microangiopathy in the white matter is again noted. Multiple ch ronic focal infarcts in the left basal ganglia region, left ashley radiata and right ashley radiata a re again noted and unchanged. Evolving ischemic infarcts involving the corpus callosum and left coron a radiata are noted since the previous MR examination. No new area of ischemia is appreciated. HEMORRHAGE: None. EXTRA-AXIAL SPACES: Normal in size and morphology for the patient's age. VENTRICULAR SYSTEM: Normal in size and morphology for the patient's age. MIDLINE SHIFT OR HERNIATION: None. CEREBELLUM / BRAINSTEM: No significant abnormality. CALVARIUM: No significant abnormality. ORBITS: Normal as visualized. PARANASAL SINUSES / MASTOID AIR CELLS: Normal as visualized. SOFT TISSUES of HEAD: No significant abnormality. ADDITIONAL FINDINGS: None. IMPRESSION: Evolving subacute ischemic infarcts as described. Stable chronic white matter changes and chronic foc al infarcts as described. No new acute intracranial process is appreciated. Signer Name: Carlos Emery Jr, MD Signed: 11/21/2021 12:38 PM Workstation Name: [id number]
[2021-11-21] MEDS ORDERED: LIPASE 10,500/PROTEASE 25,000/AMYLASE 43,750 (UNITS) DR CAP FEEDTUBE PRN (13:00)
[2021-11-21] MEDS ORDERED: SODIUM BICARBONATE 325 MG TAB FEEDTUBE PRN (13:00)
[2021-11-21] MEDS ORDERED: SIMPLE SYRUP 15 ML FEEDTUBE PRN ×2 (13:00)
--- NOTE | 2021-11-21 16:53 | Consultation ---
History of Present Illness Consult date: 11/21/21 Requesting physician: LUIS CORBETT Consult reason: atrial fibrillation History of present illness: 61-year-old male with vascular dementia and history of CVA who presented to the ED on 11/12/2021 for diminished cognition and sudden onset right-sided weakness. History is taken from chart due to patient's diminished cognition at time of interview. Hospital course patient has had diminished cognition and found to have CVA. Patient has underwent PEG tube placement. For further CVA work-up neurology requested RICH. Cardiology is consulted for RICH. Patient is previously unknown to our practice. Past History Past Medical History: stroke Past Surgical History: No surgical history, Other (Reviewed) Social history: single, lives with family Family history: hypertension Medications and Allergies Allergies Allergy/AdvReac Type Severity Reaction Status Date / Time No Known Allergies Allergy Unverified 11/12/21 17:19 Home Medications Medication Instructions Recorded Confirmed Last Taken Type Amlodipine Besylate [Norvasc] 10 mg PO DAILY 11/14/21 11/14/21 Unknown History Atorvastatin [Lipitor Tab] 40 mg PO QHS 11/14/21 11/14/21 Unknown History Clopidogrel [Plavix] 75 mg PO QDAY 11/14/21 11/14/21 Unknown History FLUoxetine HCL [Prozac] 10 mg PO DAILY 11/14/21 11/14/21 Unknown History hydroCHLOROthiazide [Hctz] 12.5 mg PO QDAY 11/14/21 11/14/21 Unknown History lisinopriL [Lisinopril] 20 mg PO DAILY 11/14/21 11/14/21 Unknown History Active Meds: Active Medications Acetaminophen (Acetaminophen 325 Mg Tab) 650 mg PO Q4H PRN PRN Reason: Pain, Mild (1-3) Lipase/Protease/Amylase (Lipase 10,500/Protease 25,000/Amylase 43,750 (Units) Dr Steven) 1 each FEEDTUBE PRN PRN PRN Reason: For Clogged Feeding Tube Aspirin (Aspirin 325 Mg Tab) 325 mg PO QDAY [facility] Last Admin: 11/21/21 09:39 Dose: 325 mg Atorvastatin Calcium (Atorvastatin 40 Mg Tab) 40 mg PO QHS [facility] Last Admin: 11/21/21 03:03 Dose: Not Given Bisacodyl (Bisacodyl 10 Mg Rect Supp) 10 mg VT QDAY PRN PRN Reason: Constipation Clopidogrel Bisulfate (Clopidogrel 75 Mg Tab) 75 mg PO QDAY [facility] Last Admin: 11/21/21 09:39 Dose: 75 mg Dextrose (Dextrose 10% *Hypoglycemia) 0 ml IV PRN PRN PRN Reason: Hypoglycemia Last Admin: 11/16/21 08:49 Dose: 250 ml Heparin Sodium (Porcine) (Heparin 5,000 Unit/1 Ml Vial) 5,000 unit SUB-Q Q8HR [facility] Last Admin: 11/21/21 16:42 Dose: 5,000 unit Hydralazine HCl (Hydralazine 20 Mg/1 Ml Inj) 10 mg IV Q6H PRN PRN Reason: Hypertension Hydromorphone HCl (Hydromorphone 1 Mg/1 Ml Inj) 0.5 mg IV Q23H PRN PRN Reason: Pain , Severe (7-10) Last Admin: 11/18/21 11:42 Dose: 0.5 mg Dextrose (D10w) 1,000 mls @ 100 mls/hr IV DIRECT [facility] Last Admin: 11/21/21 09:33 Dose: 100 mls/hr Magnesium Hydroxide (Magnesium Hydroxide (Mom) Oral Liqd Udc) 30 ml PO Q4H PRN PRN Reason: Constipation Metoclopramide HCl (Metoclopramide 10 Mg Tab) 10 mg PO Q6H PRN PRN Reason: Nausea And Vomiting Ondansetron HCl (Ondansetron 4 Mg/2 Ml Inj) 4 mg IV Q8H PRN PRN Reason: Nausea And Vomiting Last Admin: 11/21/21 03:11 Dose: 4 mg Oxycodone/Acetaminophen (Oxycodone /Acetaminophen 5-325mg Tab) 1 tab PO Q16H PRN PRN Reason: Pain, Moderate (4-6) Promethazine HCl (Promethazine 25 Mg Rect Supp) 25 mg VT Q6H PRN PRN Reason: Nausea And Vomiting Last Admin: 11/21/21 05:45 Dose: 25 mg Simple Syrup (Simple Syrup 15 Ml) 15 ml FEEDTUBE PRN PRN PRN Reason: Hypoglycemia Simple Syrup (Simple Syrup 15 Ml) 30 ml FEEDTUBE PRN PRN PRN Reason: Hypoglycemia Sodium Bicarbonate (Sodium Bicarbonate 325 Mg Tab) 325 mg FEEDTUBE PRN PRN PRN Reason: For Clogged Feeding Tube Sodium Chloride (Sodium Chloride 0.9% 10 Ml Flush Syringe) 10 ml IV PRN PRN PRN Reason: LINE FLUSH Last Admin: 11/20/21 21:40 Dose: 10 ml Review of Systems ROS unobtainable: due to mental status Physical Examination Vital Signs Pulse Resp Pulse Ox 83 19 79 L 11/12/21 17:09 11/12/21 17:09 11/12/21 17:09 General appearance: other HEENT: Positive: Normocephaly (AMS), Mucus Membranes Dry Neck: Positive: trachea midline Cardiac: Positive: Reg Rate and Rhythm Lungs: Positive: Normal Breath Sounds Neuro: Positive: Other (Unable to assess) Abdomen: Positive: Soft Skin: Negative: Rash Extremities: Present: upper extr. pulses. Absent: edema Results 11/17/21 04:42 11/20/21 09:19 - Imaging and Cardiology Echo: report reviewed EKG interpretations - Telemetry EKG Rhythm: Sinus Rhythm - EKG Sinus rhythms and dysrhythmias: sinus rhythm Assessment and Plan 61-year-old male with vascular dementia and history of CVA who presented to the ED on 11/12/2021 for diminished cognition and sudden onset right-sided weakness. CVA Vascular dementia Debility Echo 11/12/2021-EF 55 to 60%. Normal LV segmental wall motion. Right ventricle is normal in size right ventricle systolic function is normal. Saline bubble study did not demonstrate PFO Plan: EKG shows sinus rhythm 82 no acute ischemic changes MRI brain showed scattered emboli bilateral L>R Echo results noted above Telemetry reviewed patient has not had episodes of A. fib. EKG shows sinus rhythm no events of A. fib Patient for RICH in the a.m. N.p.o. after midnight/hold tube feedings Patient's family member denies any cardiac history or history of A. fib Discussed plan of care with patient's next of kin who verbalized agreement and understanding and expressed desire for RICH. For member understands risk versus benefits Patient seen in conjunction with Dr. Singer who agrees with this plan of care - Patient Problems (1) CVA (cerebral vascular accident) Current Visit: Yes Status: Acute (2) Debility Current Visit: Yes Status: Acute (3) Dysarthria due to acute cerebrovascular accident (CVA) Current Visit: Yes Status: Acute (4) Dysphagia Current Visit: Yes Status: Acute Qualifiers: Dysphagia type: oropharyngeal phase Qualified Code(s): R13.12 - Dysphagia, oropharyngeal phase (5) History of stroke Current Visit: Yes Status: Acute (6) Right sided weakness Current Visit: Yes Status: Acute
[2021-11-21] MEDS: guaiFENesin 100 MG/5 ML ORAL LIQD PO PRN (18:58)
--- NOTE | 2021-11-21 20:01 | XRay Report ---
CHEST 1 VIEW INDICATION / CLINICAL INFORMATION: cough STUDY TIME: 1911 COMPARISON: 11/12/2021 FINDINGS: SUPPORT DEVICES: None HEART / MEDIASTINUM: No significant abnormality. LUNGS / PLEURA: Poor degree of inspiration is seen. Bibasilar atelectatic changes are noted. Mild pat erik developing pneumonitis is not excluded in the lung bases. No pneumothorax. ADDITIONAL FINDINGS: No significant additional findings. Signer Name: Ed Cortes MD Signed: 11/21/2021 7:56 PM Workstation Name: [id number]
[2021-11-22] MEDS: guaiFENesin 100 MG/5 ML ORAL LIQD PO PRN ×3 (00:02→17:59)
[2021-11-22] MEDS: HEPARIN 5,000 UNIT/1 ML VIAL SUB-Q SCH ×3 (06:00→22:02)
[2021-11-22] MEDS: DEXTROSE 10% *Hypoglycemia IV PRN (06:01)
[2021-11-22] MEDS: ASPIRIN 325 MG TAB PO SCH (09:13)
[2021-11-22] MEDS: CLOPIDOGREL 75 MG TAB PO SCH (09:13)
--- NOTE | 2021-11-22 13:09 | Progress Note ---
Assessment and Plan Assessment and Plan 61 YO Male with Vascular Dementia, Cerebral Atherosclerosis, CVA presents to ED for evaluation. Patient has diminished cognition and is unable to provide detailed history. Patient history taken from EMS staff, ED staff, as well as patient family who was at bedside during exam and interview. As per family member reports the patient has experienced sudden onset weakness on his right side as well as increased confusion. - Patient Problems # New onset of right side weakness and speech impairment -r/o CVA (cerebral vascular accident) -NIH#5 -CT brain showed bilateral hypodense lesions -CTA brain and neck are unremarkable -MRI brain showed scattered emboli bilateral L>R r/o AF -Started On ASA and Plavix plus lipitor -echo with buble study showed EF#55-60% -LDL is #42 -Pt/ST evaluate -cardiac monitoring -Consider MCOT on D/C -Consider cardiology evaluation !!! RICH -evaluated by cardiology -will repeat CT brain due to lethargy -- showed no change in status # Right hemiparesis -Secondary to CVA, physical therapy consulted, supportive care. -need PT/ST evaluate # Dysarthria and Dysphagia Speech therapy consulted, supportive care, -had peg tube feeding # Debility Physical therapy consulted, supportive care. # Hypoglycemia -Dextrose therapy. Repeat BMP in a.m. # DVT prophylaxis -SCD to bilateral lower extremities while in bed Subjective Date of service: 11/22/21 Principal diagnosis: PEG check Interval history: slightly sleepy move left side to stimuli , continues to be lethargic MRI is noted he is with peg tube feeding repeat CT brain showed no significant changes scheduled for RICH Objective - Vital Sign Vital Signs - 12hr 11/22/21 11/22/21 11/22/21 03:47 07:15 07:53 Temperature 99.6 F 98.2 F Pulse Rate 80 69 69 Pulse Rate [ From Monitor] Respiratory 20 14 Rate Blood Pressure 151/75 Blood Pressure 140/72 [Left] O2 Sat by Pulse 98 99 Oximetry 11/22/21 11/22/21 11:00 11:24 Temperature 98.2 F Pulse Rate 66 Pulse Rate [ 69 From Monitor] Respiratory 18 14 Rate Blood Pressure 159/64 Blood Pressure [Left] O2 Sat by Pulse 95 99 Oximetry - General Apperance Constitutional: uncomfortable - EENT EENT: PERRL, mucous membranes moist - Respiratory Respiratory: chest non-tender, lungs clear, rhonchi - Cardiovascular Cardiovascular: regular rate, normal S1, normal S2 Extremities: no peripheral edema bilat, no clubbing, cyanosis - Gastrointestinal Gastrointestinal: normoactive bowel sounds - Integumentary Integumentary: normal - Neurologic Cranial nerve examination: PERRL, EOMI, facial droop Speech examination: other (no speech out put follow simple commands) Detailed motor examination: other (right side upper1/5 lower4-/5 ) - Psychiatric Psychiatric: other (he open eyes to repeat verbal stimulation shift easily to sleep ) - Laboratory Findings CBC and BMP: 11/17/21 04:42 11/22/21 12:02 Abnormal Lab Findings: Abnormal Labs 11/12/21 11/12/21 11/12/21 16:48 16:48 16:48 WBC MCV 81 L MCH MCHC 35 H Lymph % (Auto) Seg Neutrophils % 76.6 H Seg Neutrophils # Thrombin Time 14.6 L Sodium 133 L Potassium Chloride 96.7 L BUN Creatinine Glucose POC Glucose Ammonia Albumin 3.6 L LDL Cholesterol Direct HDL Cholesterol Ur Specific Sod 11/12/21 11/12/21 11/12/21 16:48 17:12 18:06 WBC MCV MCH MCHC Lymph % (Auto) Seg Neutrophils % Seg Neutrophils # Thrombin Time Sodium Potassium Chloride BUN Creatinine Glucose POC Glucose 61 L Ammonia 12.0 L Albumin LDL Cholesterol Direct HDL Cholesterol Ur Specific Sod 1.060 H 11/12/21 11/13/21 11/13/21 23:01 07:29 15:47 WBC MCV MCH MCHC Lymph % (Auto) Seg Neutrophils % Seg Neutrophils # Thrombin Time Sodium Potassium Chloride BUN Creatinine Glucose POC Glucose 118 H 148 H 125 H Ammonia Albumin LDL Cholesterol Direct HDL Cholesterol Ur Specific Sod 11/14/21 11/14/21 11/15/21 16:15 21:47 16:52 WBC MCV MCH MCHC Lymph % (Auto) Seg Neutrophils % Seg Neutrophils # Thrombin Time Sodium Potassium Chloride BUN Creatinine Glucose POC Glucose 179 H 154 H 126 H Ammonia Albumin LDL Cholesterol Direct HDL Cholesterol Ur Specific Sod 11/15/21 11/15/21 11/16/21 18:53 18:53 07:45 WBC 12.3 H MCV 81 L MCH MCHC Lymph % (Auto) Seg Neutrophils % Seg Neutrophils # Thrombin Time Sodium Potassium 3.1 L D Chloride 97.4 L BUN 4 L Creatinine Glucose 130 H POC Glucose 118 H Ammonia Albumin LDL Cholesterol Direct HDL Cholesterol Ur Specific Sod 11/16/21 11/17/21 11/17/21 20:04 04:42 04:42 WBC 13.9 H MCV 80 L MCH 27 L MCHC Lymph % (Auto) 9.4 L Seg Neutrophils % 84.1 H Seg Neutrophils # 11.7 H Thrombin Time Sodium 136 L Potassium 3.2 L Chloride BUN 5 L Creatinine 0.7 L Glucose 111 H POC Glucose 145 H Ammonia Albumin LDL Cholesterol Direct HDL Cholesterol Ur Specific Sod 11/17/21 11/18/21 11/18/21 07:29 08:00 22:03 WBC MCV MCH MCHC Lymph % (Auto) Seg Neutrophils % Seg Neutrophils # Thrombin Time Sodium Potassium Chloride BUN Creatinine Glucose POC Glucose 107 H 116 H 124 H Ammonia Albumin LDL Cholesterol Direct HDL Cholesterol Ur Specific Sod 11/19/21 11/19/21 11/19/21 07:37 09:53 18:14 WBC MCV MCH MCHC Lymph % (Auto) Seg Neutrophils % Seg Neutrophils # Thrombin Time Sodium Potassium 3.2 L Chloride BUN 8 L Creatinine 0.6 L Glucose POC Glucose 119 H Ammonia Albumin LDL Cholesterol Direct 42 L HDL Cholesterol 32 L Ur Specific Sod 11/20/21 11/20/21 11/20/21 07:37 09:19 11:42 WBC MCV MCH MCHC Lymph % (Auto) Seg Neutrophils % Seg Neutrophils # Thrombin Time Sodium Potassium 3.1 L Chloride BUN Creatinine Glucose POC Glucose 146 H 154 H Ammonia Albumin LDL Cholesterol Direct HDL Cholesterol Ur Specific Sod 11/20/21 11/20/21 11/21/21 16:13 21:30 07:41 WBC MCV MCH MCHC Lymph % (Auto) Seg Neutrophils % Seg Neutrophils # Thrombin Time Sodium Potassium Chloride BUN Creatinine Glucose POC Glucose 111 H 108 H 159 H Ammonia Albumin LDL Cholesterol Direct HDL Cholesterol Ur Specific Sod 11/21/21 11/21/21 11/21/21 12:10 16:13 20:44 WBC MCV MCH MCHC Lymph % (Auto) Seg Neutrophils % Seg Neutrophils # Thrombin Time Sodium Potassium Chloride BUN Creatinine Glucose POC Glucose 139 H 137 H 120 H Ammonia Albumin LDL Cholesterol Direct HDL Cholesterol Ur Specific Sod 11/22/21 12:02 WBC MCV MCH MCHC Lymph % (Auto) Seg Neutrophils % Seg Neutrophils # Thrombin Time Sodium Potassium 3.0 L Chloride BUN Creatinine Glucose POC Glucose Ammonia Albumin LDL Cholesterol Direct HDL Cholesterol Ur Specific Sod
[2021-11-22] MEDS ORDERED: POTASSIUM CHLORIDE 20 MEQ PACKET FEEDTUBE ONE (13:38)
[2021-11-22] MEDS: DEXTROSE 10% IN WATER 1,000 ML IV SCH (14:25)
--- NOTE | 2021-11-22 15:37 | Progress Note ---
Assessment and Plan 61-year-old male with vascular dementia and history of CVA who presented to the ED on 11/12/2021 for diminished cognition and sudden onset right-sided weakness. CVA Vascular dementia Debility Echo 11/12/2021-EF 55 to 60%. Normal LV segmental wall motion. Right ventricle is normal in size right ventricle systolic function is normal. Saline bubble study did not demonstrate PFO Plan: RICH canceled today due to tube feedings not held overnight by staff. RICH rescheduled for tomorrow morning. Patient to be n.p.o. after midnight/hold tube feedings overnight MRI brain showed scattered emboli bilateral L>R Telemetry reviewed patient has not had episodes of A. fib. EKG shows sinus rhythm no events of A. fib Discussed plan of care with patient's next of kin who verbalized agreement and understanding and expressed desire for RICH. For member understands risk versus benefits Patient seen in conjunction with Dr. Singer who agrees with this plan of care - Patient Problems (1) CVA (cerebral vascular accident) Current Visit: Yes Status: Acute (2) Debility Current Visit: Yes Status: Acute (3) Dysarthria due to acute cerebrovascular accident (CVA) Current Visit: Yes Status: Acute (4) Dysphagia Current Visit: Yes Status: Acute Qualifiers: Dysphagia type: oropharyngeal phase Qualified Code(s): R13.12 - Dysphagia, oropharyngeal phase (5) History of stroke Current Visit: Yes Status: Acute (6) Right sided weakness Current Visit: Yes Status: Acute Subjective Date of service: 11/22/21 Principal diagnosis: PEG check/ CVA Interval history: Patient resting in bed in no acute distress. Patient still unable to speak response Lots of interference on telemetry. No apparent episodes of A. fib. Patient appears to be sinus rate trending 60s-70s Objective Vital Signs Temp Pulse Pulse Resp BP BP Pulse Ox 11/22/21 11:24 98.2 F 66 14 159/64 99 11/22/21 11:00 69 18 95 11/22/21 07:53 98.2 F 69 14 151/75 99 11/22/21 07:15 69 11/22/21 03:47 99.6 F 80 20 140/72 98 11/21/21 23:21 76 18 95 11/21/21 22:52 99.7 F H 81 20 146/76 99 11/21/21 19:20 99.2 F 74 6 L 139/76 99 11/21/21 15:43 99.8 F H 75 22 143/75 98 - Physical Examination General: No Apparent Distress HEENT: Positive: Normocephaly (AMS), Mucus Membranes Dry Neck: Positive: trachea midline Cardiac: Positive: Reg Rate and Rhythm Lungs: Positive: Normal Breath Sounds Neuro: Positive: Other (Unable to assess) Abdomen: Positive: Soft Skin: Negative: Rash Extremities: Present: upper extr. pulses. Absent: edema - Labs and Meds Comprehensive Metabolic Panel 11/22/21 Range/Units 12:02 Potassium 3.0 L (3.6-5.0) mmol/L - Imaging and Cardiology Echo: report reviewed - Telemetry EKG Rhythm: Sinus Rhythm - EKG Sinus rhythms and dysrhythmias: sinus rhythm
[2021-11-22] MEDS: ONDANSETRON 4 MG/2 ML INJ IV PRN (18:00)
--- NOTE | 2021-11-22 20:36 | Progress Note ---
Assessment and Plan Assessment and plan: 61 YO Male with Vascular Dementia, Cerebral Atherosclerosis, CVA presents to ED for evaluation of CVA patient found to have clinical symptoms consistent with CVA complicated by dysphagia, dysarthria. Patient also appears to have expressive aphasia. Patient also found to have hypoglycemia and was treated with dextrose therapy with mild improvement in symptoms. Patient admitted to telemetry and initiated on stroke protocol. 61 YO Male with Vascular Dementia, Cerebral Atherosclerosis, CVA presents to ED for evaluation of CVA patient found to have clinical symptoms consistent with CVA complicated by dysphagia, dysarthria. Patient also appears to have expressive aphasia. Patient also found to have hypoglycemia and was treated with dextrose therapy with mild improvement in symptoms. Patient admitted to telemetry and initiated on stroke protocol. Neuro work-up as mentioned below --Acute CVA with right hemiparesis; Aspirin and statin, physical therapy occupational therapy rehabilitation Supportive care Subacute rehab versus SNF versus home with home health when s table MRI brain; a few small scattered areas of ischemia embolic phenomenon should be considered otherwise no focal mass acute hemorrhage hydrocephalus or acute large territorial infarct seen sinus disease noted --Embolic CVA ; per MRI brain ; Neurology recommended RICH to rule out cardiac source of embolic phenomena --Severe toxic metabolic encephalopathy; Neuro work-up reviewed Acute CVA with right hemiparesis Continue supportive care --expressive aphasia; Speech therapy, supportive care --Dysarthria; Speech therapy, supportive care --Oropharyngeal dysphagia; GI evaluated the patient, status post PEG placement 11/16/2021 Continue tube feeding, aspiration precautions --General debility; PT OT supportive care Subacute rehab --Hypoglycemia; Closely monitor blood sugars Adjust medications as needed Avoid hypoglycemic episodes --DVT prophylaxis; Subcu heparin. Follow-up PT OT recommendations Closely monitor the patient and adjust management as needed I discussed with the neurology, I discussed with cardiology DC planning per case management Start tube feeding diet Closely monitor the patient and adjust management as needed Plan of care reviewed with the patient and his nurse. Patient is embolic CVA Neurology recommended RICH to rule out cardioembolic causes of embolic CVA. Cardiology consult requested for RICH We will also discuss with family, the goals of treatment Brief history and daily hospital course; Patient with acute embolic CVA, neuro work-up reviewed, neurologist recommended RICH study. Closely monitor 11/13/2021. Continue secondary prevention with aspirin and Lipitor. Check MRI brain and echocardiogram. CTA of head and neck are negative. Await neurology consultation. Await PT and ST evaluations 11/14/2021. Continue secondary prevention with aspirin and Lipitor. MRI reveals a few small scattered areas of ischemia in the area of the corpus callosum left foot of the midline and minimal involvement in the ganglial capsular region on the right which could represent embolic phenomena. No focal mass, acute hemorrhage or hydrocephalus. No acute large territorial infarct seen. Echocardiogram did not reveal thrombi/emboli and no PFO. Physical therapy recommends subacute rehab. Speech therapy did not evaluate the patient yesterday. Await speech therapy evaluation to determine if patient will need Dobbhoff tube feeding. Continue D10 IV fluid for now 11/15/2021. Speech therapy reports patient is aspiration risk. Patient exhibits a pharyngeal phase dysphagia complicated by a swallowing reflex delay. We will consult GI for PEG tube placement. Placed DHT for now and consult dietitian for tube feeding 11/16/2021. PEG placement per GI today. Pt to d/c home with HH. Family education with TF. Also, CM to arrrange for supplies. 11/17/2021. PEG was placed yesterday and patient tolerated tube feedings. Await for case management to arrange for tube feeding supplies and education. Continue PT/OT/ST. Continue secondary prevention with aspirin and Lipitor 11/18/2021. Continue TF with aspiration precautions. Await for case management to arrange for tube feeding supplies and education. Continue PT/OT/ST. Continue secondary prevention with aspirin and Lipitor 11/19/2021. Continue TF with aspiration precautions. Family education with regards to tube feeding. Continue PT/OT/ST. Continue secondary prevention with aspirin and Lipitor. 11/20/2021; tube feeding diet, PEG is functional, DC planning per case management Home health PT/nurse/health aide Feeding pump with Pole, Kangaroo pump with tube with tub with flush Drainage dressing. Irrigation kit. Osmolite 40 mL/h To be set up by home health services at discharge 11/21/21; possible embolic CVA neuro recommended RICH, Cardiology consulted ,RICH requested 11/22; patient was not n.p.o. midnight for unknown reason[though n.p.o. order was given] RICH rescheduled for tomorrow, n.p.o. from midnight. Strictly advised the nurse to make sure patient is n.p.o. from midnight For possible RICH tomorrow History Interval history: Seen and examined the patient at the bedside Patient's chart and medications reviewed Patient could not have RICH today as patient was not n.p.o. For unknown reasons, RICH rescheduled for tomorrow No acute complaints Hospitalist Physical - Constitutional Vitals: Temp Pulse Resp BP Pulse Ox 98.9 F 82 16 155/82 100 11/22/21 16:05 11/22/21 16:05 11/22/21 16:05 11/22/21 16:05 11/22/21 16:05 General appearance: Present: no acute distress, cachectic, disheveled, other (Lethargic) - EENT Eyes: Present: PERRL, EOM intact - Neck Neck: Present: supple, normal ROM - Respiratory Respiratory effort: normal Respiratory: bilateral: diminished, negative: rales, rhonchi, wheezing - Cardiovascular Rhythm: regular Heart Sounds: Present: S1 & S2 - Extremities Extremities: no ischemia, No edema - Abdominal General gastrointestinal: soft, non-tender, non-distended, normal bowel sounds - Integumentary Integumentary: Present: clear, warm - Psychiatric Psychiatric: appropriate mood/affect, cooperative - Neurologic Neurologic: moves all extremities HEART Score - HEART Score Troponin: Troponin T < 0.010 ng/mL (0.00-0.029) 11/12/21 16:48 Results - Labs CBC & Chem 7: 11/17/21 04:42 11/22/21 12:02 Labs: Laboratory Last Values WBC 13.9 K/mm3 (4.5-11.0) H 11/17/21 04:42 RBC 4.69 M/mm3 (3.65-5.03) 11/17/21 04:42 Hgb 12.6 gm/dl (11.8-15.2) 11/17/21 04:42 Hct 37.3 % (35.5-45.6) 11/17/21 04:42 MCV 80 fl (84-94) L 11/17/21 04:42 MCH 27 pg (28-32) L 11/17/21 04:42 MCHC 34 % (32-34) 11/17/21 04:42 RDW 13.3 % (13.2-15.2) 11/17/21 04:42 Plt Count 308 K/mm3 (140-440) 11/17/21 04:42 Lymph % (Auto) 9.4 % (13.4-35.0) L 11/17/21 04:42 [place] % (Auto) 5.8 % (0.0-7.3) 11/17/21 04:42 Eos % (Auto) 0.0 % (0.0-4.3) 11/17/21 04:42 Baso % (Auto) 0.7 % (0.0-1.8) 11/17/21 04:42 Lymph # (Auto) 1.3 K/mm3 (1.2-5.4) 11/17/21 04:42 [place] # (Auto) 0.8 K/mm3 (0.0-0.8) 11/17/21 04:42 Eos # (Auto) 0.0 K/mm3 (0.0-0.4) 11/17/21 04:42 Baso # (Auto) 0.1 K/mm3 (0.0-0.1) 11/17/21 04:42 Seg Neutrophils % 84.1 % (40.0-70.0) H 11/17/21 04:42 Seg Neutrophils # 11.7 K/mm3 (1.8-7.7) H 11/17/21 04:42 PT 13.3 Sec. (12.2-14.9) 11/15/21 18:53 INR 0.92 (0.87-1.13) 11/15/21 18:53 APTT 33.5 Sec. (24.2-36.6) 11/12/21 16:48 Thrombin Time 14.6 Sec. (15.1-19.6) L 11/12/21 16:48 Sodium 139 mmol/L (137-145) 11/19/21 18:14 Potassium 3.0 mmol/L (3.6-5.0) L 11/22/21 12:02 Chloride 101.0 mmol/L (98-107) 11/19/21 18:14 Carbon Dioxide 24 mmol/L (22-30) 11/19/21 18:14 Anion Gap 17 mmol/L 11/19/21 18:14 BUN 8 mg/dL (9-20) L 11/19/21 18:14 Creatinine 0.6 mg/dL (0.8-1.3) L 11/19/21 18:14 Estimated GFR > 60 ml/min 11/19/21 18:14 BUN/Creatinine Ratio 13 % 11/19/21 18:14 Glucose 100 mg/dL (75-100) 11/19/21 18:14 POC Glucose 125 mg/dL (70-105) H 11/22/21 17:10 Calcium 9.3 mg/dL (8.4-10.2) 11/19/21 18:14 Magnesium 2.10 mg/dL (1.7-2.3) 11/20/21 09:19 Total Bilirubin 0.50 mg/dL (0.1-1.2) 11/12/21 16:48 AST 18 units/L (5-40) 11/12/21 16:48 ALT 25 units/L (7-56) 11/12/21 16:48 Alkaline Phosphatase 64 units/L (35-129) 11/12/21 16:48 Ammonia 12.0 umol/L (25-60) L 11/12/21 16:48 Total Creatine Kinase 93 units/L (55-170) 11/12/21 16:48 Total Creatine Kinase 93 units/L (55-170) 11/12/21 16:48 CK-MB (CK-2) < 1.0 ng/mL (0.0-4.0) 11/12/21 16:48 CK-MB (CK-2) Rel Index 1.0 (0-4) 11/12/21 16:48 Troponin T < 0.010 ng/mL (0.00-0.029) 11/12/21 16:48 Total Protein 6.5 g/dL (6.3-8.2) 11/12/21 16:48 Albumin 3.6 g/dL (3.9-5) L 11/12/21 16:48 Albumin/Globulin Ratio 1.2 % 11/12/21 16:48 Triglycerides 37 mg/dL (2-149) 11/19/21 09:53 Cholesterol 78 mg/dL (50-199) 11/19/21 09:53 LDL Cholesterol Direct 42 mg/dL (50-130) L 11/19/21 09:53 HDL Cholesterol 32 mg/dL (40-59) L 11/19/21 09:53 Cholesterol/HDL Ratio 2.43 % 11/19/21 09:53 TSH 1.040 mlU/mL (0.270-4.200) 11/12/21 16:48 Urine Color Yellow (Yellow) 11/12/21 18:06 Urine Turbidity Clear (Clear) 11/12/21 18:06 Urine pH 6.0 (5.0-7.0) 11/12/21 18:06 Ur Specific [place] 1.060 (1.003-1.030) H 11/12/21 18:06 Urine Protein <15 mg/dl mg/dL (Negative) 11/12/21 18:06 Urine Glucose (UA) Neg mg/dL (Negative) 11/12/21 18:06 Urine Ketones Tr mg/dL (Negative) 11/12/21 18:06 Urine Blood Neg (Negative) 11/12/21 18:06 Urine Nitrite Neg (Negative) 11/12/21 18:06 Urine Bilirubin Neg (Negative) 11/12/21 18:06 Urine Urobilinogen 4.0 mg/dL (<2.0) 11/12/21 18:06 Ur Leukocyte Esterase Neg (Negative) 11/12/21 18:06 Urine WBC (Auto) < 1.0 /HPF (0.0-6.0) 11/12/21 18:06 Urine RBC (Auto) 1.0 /HPF (0.0-6.0) 11/12/21 18:06 U Epithel Cells (Auto) 3.0 /HPF (0-13.0) 11/12/21 18:06 Urine Mucus 1+ /HPF 11/12/21 18:06 Walker/IV: Voiding Method Condom Catheter Active Medications - Current Medications Current Medications: Generic Name Dose Route Start Last Admin Trade Name Freq PRN Reason Stop Dose Admin Acetaminophen 650 mg 11/12/21 19:10 Acetaminophen 325 Mg Tab PO Q4H PRN Pain, Mild (1-3) Lipase/Protease/Amylase 1 each 11/21/21 13:00 Lipase 10,500/Protease 25,000/Amylase 43,750 (Units) Dr Steven FEEDTUBE PRN PRN For Clogged Feeding Tube Aspirin 325 mg 11/13/21 10:00 11/22/21 09:13 Aspirin 325 Mg Tab PO 325 mg QDAY RUYB Administration Atorvastatin Calcium 40 mg 11/12/21 22:00 11/21/21 21:51 Atorvastatin 40 Mg Tab PO 40 mg QHS RUBY Administration Bisacodyl 10 mg 11/12/21 19:10 Bisacodyl 10 Mg Rect Supp FL QDAY PRN Constipation Clopidogrel Bisulfate 75 mg 11/13/21 10:00 11/22/21 09:13 Clopidogrel 75 Mg Tab PO 75 mg QDAY RUBY Administration Dextrose 0 ml 11/13/21 07:05 11/22/21 06:01 Dextrose 10% *Hypoglycemia IV 250 ml PRN PRN Administration Hypoglycemia Guaifenesin 200 mg 11/21/21 18:35 11/22/21 17:59 Guaifenesin 100 Mg/5 Ml Oral Liqd PO 200 mg Q4H PRN Administration Cough Heparin Sodium (Porcine) 5,000 unit 11/20/21 22:00 11/22/21 13:17 Heparin 5,000 Unit/1 Ml Vial SUB-Q 5,000 unit Q8HR RUBY Administration Hydralazine HCl 10 mg 11/20/21 00:00 Hydralazine 20 Mg/1 Ml Inj IV Q6H PRN Hypertension Hydromorphone HCl 0.5 mg 11/12/21 19:10 11/18/21 11:42 Hydromorphone 1 Mg/1 Ml Inj IV 0.5 mg Q23H PRN Administration Pain , Severe (7-10) Dextrose 1,000 mls @ 100 mls/hr 11/19/21 22:00 11/22/21 14:25 D10w IV 100 mls/hr DIRECT RUBY Administration Magnesium Hydroxide 30 ml 11/12/21 19:10 Magnesium Hydroxide (Mom) Oral Liqd Udc PO Q4H PRN Constipation Metoclopramide HCl 10 mg 11/12/21 19:10 Metoclopramide 10 Mg Tab PO Q6H PRN Nausea And Vomiting Ondansetron HCl 4 mg 11/12/21 19:10 11/22/21 18:00 Ondansetron 4 Mg/2 Ml Inj IV 4 mg Q8H PRN Administration Nausea And Vomiting Oxycodone/Acetaminophen 1 tab 11/12/21 19:10 Oxycodone /Acetaminophen 5-325mg Tab PO Q16H PRN Pain, Moderate (4-6) Promethazine HCl 25 mg 11/12/21 19:10 11/21/21 05:45 Promethazine 25 Mg Rect Supp [place] 25 mg Q6H PRN Administration Nausea And Vomiting Simple Syrup 15 ml 11/21/21 13:00 Simple Syrup 15 Ml FEEDTUBE PRN PRN Hypoglycemia Simple Syrup 30 ml 11/21/21 13:00 Simple Syrup 15 Ml FEEDTUBE PRN PRN Hypoglycemia Sodium Bicarbonate 325 mg 11/21/21 13:00 Sodium Bicarbonate 325 Mg Tab FEEDTUBE PRN PRN For Clogged Feeding Tube Sodium Chloride 10 ml 11/12/21 19:10 11/20/21 21:40 Sodium Chloride 0.9% 10 Ml Flush Syringe IV 10 ml PRN PRN Administration LINE FLUSH Nutrition/Malnutrition Assess - Dietary Evaluation Nutrition/Malnutrition Findings: Nutrition Notes Start: 11/13/21 13:00 Freq: Status: Active Protocol: Document 11/21/21 11:46 ANEESH (Rec: 11/21/21 12:48 ANEESH [id number]) Nutrition Notes Initial or Follow up Brief Note Current Diet TF-Osmolite 1.5 [place] @ 40 ml/hr (since B 11/21). Height 5 ft 6 in Weight 57.5 kg [place] Body Weight (kg) 64.54 BMI 20.5 Weight change and time frame No body weight change reported in 2 days. Weight Status Appropriate Subjective/Other Information RD consult to write/manage TF. I placed the order for Osmolite as recommended on . Will check for tolerance at F/ U. Percent of energy/protein needs met: Prescribed TF-Osmolite 1.5 [place] @ 40 ml/hr provides for energy/protein needs (1,390 Kcal/58 g) during LOS, 83% Kcal; 100% AA. #1 Nutrition Diagnosis Swallowing difficulty Diagnosis Progress(for reassessment Improved documentation) Is patient on ventilator? No Is Patient Ambulatory and/or Out of Bed Yes REE-([facility]-ambulatory/OOB) [ 4076.750 [id number]] Kcal/Kg value to use for calculation 29 Approximate Energy Requirements Using 1668 kcal/Kg Calculation Used for Recommendations Kcal/kg Additional Notes Protein: 0.8-1 g/Kg ABW; 46-58 g/day. Fluids: 1 ml/Kcal, or as per MD. Nutrition Intervention Nutrition Support: Start Osmolite 1.5 B[place] @ 40 ml /hr. Flush: 160 ml water Q 4 hr, or as per MD. Kcal 1,390 Protein (gm) 58 Carbohydrates (gm) 189 Fat (gm) 46 Fluid (mL) 706 Fiber (gm) 0 % RDI: 83% Kcal; 100% AA. Goal #1 Provide at least 75% of energy /protein needs through Enteral Feeding during LOS. Goal #2 Maintain body weight within +/ -3% of admission body weight during LOS. Follow-Up By: 11/24/21 Additional Comments Continue monitoring TF tolerance and BM.
[2021-11-23] MEDS: HEPARIN 5,000 UNIT/1 ML VIAL SUB-Q SCH ×3 (06:29→21:12)
[2021-11-23] MEDS ORDERED: propofoL 200 MG/20 ML VIAL IV ONE ×3 (07:24)
[2021-11-23] MEDS ORDERED: fentaNYL 100 MCG/2 ML INJ ONE (07:25)
[2021-11-23] MEDS ORDERED: ePHEDrine SULFATE 50 MG/1 ML INJ ONE (07:27)
--- NOTE | 2021-11-23 09:42 | Progress Note ---
Assessment and Plan Assessment and plan: 61 YO Male with Vascular Dementia, Cerebral Atherosclerosis, CVA presents to ED for evaluation of CVA patient found to have clinical symptoms consistent with CVA complicated by dysphagia, dysarthria. Patient also appears to have expressive aphasia. Patient also found to have hypoglycemia and was treated with dextrose therapy with mild improvement in symptoms. Patient admitted to telemetry and initiated on stroke protocol. 61 YO Male with Vascular Dementia, Cerebral Atherosclerosis, CVA presents to ED for evaluation of CVA patient found to have clinical symptoms consistent with CVA complicated by dysphagia, dysarthria. Patient also appears to have expressive aphasia. Patient also found to have hypoglycemia and was treated with dextrose therapy with mild improvement in symptoms. Patient admitted to telemetry and initiated on stroke protocol. Neuro work-up as mentioned below --Acute CVA with right hemiparesis; Aspirin and statin, physical therapy occupational therapy rehabilitation Supportive care Subacute rehab versus SNF versus home with home health when s table MRI brain; a few small scattered areas of ischemia embolic phenomenon should be considered otherwise no focal mass acute hemorrhage hydrocephalus or acute large territorial infarct seen sinus disease noted --Embolic CVA ; per MRI brain ; Neurology recommended RICH to rule out cardiac source of embolic phenomena --Severe toxic metabolic encephalopathy; Neuro work-up reviewed Acute CVA with right hemiparesis Continue supportive care --expressive aphasia; Speech therapy, supportive care --Dysarthria; Speech therapy, supportive care --Oropharyngeal dysphagia; GI evaluated the patient, status post PEG placement 11/16/2021 Continue tube feeding, aspiration precautions --General debility; PT OT supportive care Subacute rehab --Hypoglycemia; Closely monitor blood sugars Adjust medications as needed Avoid hypoglycemic episodes --DVT prophylaxis; Subcu heparin. Follow-up PT OT recommendations Closely monitor the patient and adjust management as needed I discussed with the neurology, I discussed with cardiology DC planning per case management Start tube feeding diet Closely monitor the patient and adjust management as needed Plan of care reviewed with the patient and his nurse. Patient is embolic CVA Neurology recommended RICH to rule out cardioembolic causes of embolic CVA. Cardiology consult requested for RICH We will also discuss with family, the goals of treatment Brief history and daily hospital course; Patient with acute embolic CVA, neuro work-up reviewed, neurologist recommended RICH study. Closely monitor 11/13/2021. Continue secondary prevention with aspirin and Lipitor. Check MRI brain and echocardiogram. CTA of head and neck are negative. Await neurology consultation. Await PT and ST evaluations 11/14/2021. Continue secondary prevention with aspirin and Lipitor. MRI reveals a few small scattered areas of ischemia in the area of the corpus callosum left foot of the midline and minimal involvement in the ganglial capsular region on the right which could represent embolic phenomena. No focal mass, acute hemorrhage or hydrocephalus. No acute large territorial infarct seen. Echocardiogram did not reveal thrombi/emboli and no PFO. Physical therapy recommends subacute rehab. Speech therapy did not evaluate the patient yesterday. Await speech therapy evaluation to determine if patient will need Dobbhoff tube feeding. Continue D10 IV fluid for now 11/15/2021. Speech therapy reports patient is aspiration risk. Patient exhibits a pharyngeal phase dysphagia complicated by a swallowing reflex delay. We will consult GI for PEG tube placement. Placed DHT for now and consult dietitian for tube feeding 11/16/2021. PEG placement per GI today. Pt to d/c home with HH. Family education with TF. Also, CM to arrrange for supplies. 11/17/2021. PEG was placed yesterday and patient tolerated tube feedings. Await for case management to arrange for tube feeding supplies and education. Continue PT/OT/ST. Continue secondary prevention with aspirin and Lipitor 11/18/2021. Continue TF with aspiration precautions. Await for case management to arrange for tube feeding supplies and education. Continue PT/OT/ST. Continue secondary prevention with aspirin and Lipitor 11/19/2021. Continue TF with aspiration precautions. Family education with regards to tube feeding. Continue PT/OT/ST. Continue secondary prevention with aspirin and Lipitor. 11/20/2021; tube feeding diet, PEG is functional, DC planning per case management Home health PT/nurse/health aide Feeding pump with Pole, Kangaroo pump with tube with tub with flush Drainage dressing. Irrigation kit. Osmolite 40 mL/h To be set up by home health services at discharge 11/21/21; possible embolic CVA neuro recommended RICH, Cardiology consulted ,RICH requested 11/22; patient was not n.p.o. midnight for unknown reason[though n.p.o. order was given] RICH rescheduled for tomorrow, n.p.o. from midnight. Strictly advised the nurse to make sure patient is n.p.o. from midnight For possible RICH tomorrow 11/23/2021; status post RICH unremarkable per cardiology, Patient with embolic CVA History Interval history: I have seen and examined the patient at the bedside Patient's chart and medications reviewed Patient with embolic CVA, neurology recommended RICH Patient underwent RICH today. Unremarkable per cardiology No new complaints Hospitalist Physical - Constitutional Vitals: Temp Pulse Resp BP Pulse Ox 98.3 F 71 16 141/73 100 11/23/21 07:55 11/23/21 07:55 11/23/21 07:55 11/23/21 07:55 11/23/21 07:55 General appearance: Present: no acute distress, cachectic, disheveled, other (Lethargic) - EENT Eyes: Present: PERRL, EOM intact - Neck Neck: Present: supple, normal ROM - Respiratory Respiratory effort: normal Respiratory: bilateral: diminished, negative: rales, rhonchi, wheezing - Cardiovascular Rhythm: regular Heart Sounds: Present: S1 & S2 - Extremities Extremities: no ischemia, No edema - Abdominal General gastrointestinal: soft, non-tender, non-distended, normal bowel sounds - Integumentary Integumentary: Present: clear, warm - Psychiatric Psychiatric: appropriate mood/affect, cooperative - Neurologic Neurologic: moves all extremities (Residual weakness) HEART Score - HEART Score Troponin: Troponin T < 0.010 ng/mL (0.00-0.029) 11/12/21 16:48 Results - Labs CBC & Chem 7: 11/17/21 04:42 11/23/21 12:59 Labs: Laboratory Last Values WBC 13.9 K/mm3 (4.5-11.0) H 11/17/21 04:42 RBC 4.69 M/mm3 (3.65-5.03) 11/17/21 04:42 Hgb 12.6 gm/dl (11.8-15.2) 11/17/21 04:42 Hct 37.3 % (35.5-45.6) 11/17/21 04:42 MCV 80 fl (84-94) L 11/17/21 04:42 MCH 27 pg (28-32) L 11/17/21 04:42 MCHC 34 % (32-34) 11/17/21 04:42 RDW 13.3 % (13.2-15.2) 11/17/21 04:42 Plt Count 308 K/mm3 (140-440) 11/17/21 04:42 Lymph % (Auto) 9.4 % (13.4-35.0) L 11/17/21 04:42 [place] % (Auto) 5.8 % (0.0-7.3) 11/17/21 04:42 Eos % (Auto) 0.0 % (0.0-4.3) 11/17/21 04:42 Baso % (Auto) 0.7 % (0.0-1.8) 11/17/21 04:42 Lymph # (Auto) 1.3 K/mm3 (1.2-5.4) 11/17/21 04:42 [place] # (Auto) 0.8 K/mm3 (0.0-0.8) 11/17/21 04:42 Eos # (Auto) 0.0 K/mm3 (0.0-0.4) 11/17/21 04:42 Baso # (Auto) 0.1 K/mm3 (0.0-0.1) 11/17/21 04:42 Seg Neutrophils % 84.1 % (40.0-70.0) H 11/17/21 04:42 Seg Neutrophils # 11.7 K/mm3 (1.8-7.7) H 11/17/21 04:42 PT 13.3 Sec. (12.2-14.9) 11/15/21 18:53 INR 0.92 (0.87-1.13) 11/15/21 18:53 APTT 33.5 Sec. (24.2-36.6) 11/12/21 16:48 Thrombin Time 14.6 Sec. (15.1-19.6) L 11/12/21 16:48 Sodium 139 mmol/L (137-145) 11/19/21 18:14 Potassium 3.0 mmol/L (3.6-5.0) L 11/22/21 12:02 Chloride 101.0 mmol/L (98-107) 11/19/21 18:14 Carbon Dioxide 24 mmol/L (22-30) 11/19/21 18:14 Anion Gap 17 mmol/L 11/19/21 18:14 BUN 8 mg/dL (9-20) L 11/19/21 18:14 Creatinine 0.6 mg/dL (0.8-1.3) L 11/19/21 18:14 Estimated GFR > 60 ml/min 11/19/21 18:14 BUN/Creatinine Ratio 13 % 11/19/21 18:14 Glucose 100 mg/dL (75-100) 11/19/21 18:14 POC Glucose 125 mg/dL (70-105) H 11/22/21 17:10 Calcium 9.3 mg/dL (8.4-10.2) 11/19/21 18:14 Magnesium 2.10 mg/dL (1.7-2.3) 11/20/21 09:19 Total Bilirubin 0.50 mg/dL (0.1-1.2) 11/12/21 16:48 AST 18 units/L (5-40) 11/12/21 16:48 ALT 25 units/L (7-56) 11/12/21 16:48 Alkaline Phosphatase 64 units/L (35-129) 11/12/21 16:48 Ammonia 12.0 umol/L (25-60) L 11/12/21 16:48 Total Creatine Kinase 93 units/L (55-170) 11/12/21 16:48 Total Creatine Kinase 93 units/L (55-170) 11/12/21 16:48 CK-MB (CK-2) < 1.0 ng/mL (0.0-4.0) 11/12/21 16:48 CK-MB (CK-2) Rel Index 1.0 (0-4) 11/12/21 16:48 Troponin T < 0.010 ng/mL (0.00-0.029) 11/12/21 16:48 Total Protein 6.5 g/dL (6.3-8.2) 11/12/21 16:48 Albumin 3.6 g/dL (3.9-5) L 11/12/21 16:48 Albumin/Globulin Ratio 1.2 % 11/12/21 16:48 Triglycerides 37 mg/dL (2-149) 11/19/21 09:53 Cholesterol 78 mg/dL (50-199) 11/19/21 09:53 LDL Cholesterol Direct 42 mg/dL (50-130) L 11/19/21 09:53 HDL Cholesterol 32 mg/dL (40-59) L 11/19/21 09:53 Cholesterol/HDL Ratio 2.43 % 11/19/21 09:53 TSH 1.040 mlU/mL (0.270-4.200) 11/12/21 16:48 Urine Color Yellow (Yellow) 11/12/21 18:06 Urine Turbidity Clear (Clear) 11/12/21 18:06 Urine pH 6.0 (5.0-7.0) 11/12/21 18:06 Ur Specific [place] 1.060 (1.003-1.030) H 11/12/21 18:06 Urine Protein <15 mg/dl mg/dL (Negative) 11/12/21 18:06 Urine Glucose (UA) Neg mg/dL (Negative) 11/12/21 18:06 Urine Ketones Tr mg/dL (Negative) 11/12/21 18:06 Urine Blood Neg (Negative) 11/12/21 18:06 Urine Nitrite Neg (Negative) 11/12/21 18:06 Urine Bilirubin Neg (Negative) 11/12/21 18:06 Urine Urobilinogen 4.0 mg/dL (<2.0) 11/12/21 18:06 Ur Leukocyte Esterase Neg (Negative) 11/12/21 18:06 Urine WBC (Auto) < 1.0 /HPF (0.0-6.0) 11/12/21 18:06 Urine RBC (Auto) 1.0 /HPF (0.0-6.0) 11/12/21 18:06 U Epithel Cells (Auto) 3.0 /HPF (0-13.0) 11/12/21 18:06 Urine Mucus 1+ /HPF 11/12/21 18:06 Walker/IV: Voiding Method Condom Catheter Active Medications - Current Medications Current Medications: Generic Name Dose Route Start Last Admin Trade Name Freq PRN Reason Stop Dose Admin Acetaminophen 650 mg 11/12/21 19:10 Acetaminophen 325 Mg Tab PO Q4H PRN Pain, Mild (1-3) Lipase/Protease/Amylase 1 each 11/21/21 13:00 Lipase 10,500/Protease 25,000/Amylase 43,750 (Units) Dr Steven FEEDTUBE PRN PRN For Clogged Feeding Tube Aspirin 325 mg 11/13/21 10:00 11/22/21 09:13 Aspirin 325 Mg Tab PO 325 mg QDAY RUBY Administration Atorvastatin Calcium 40 mg 11/12/21 22:00 11/22/21 22:02 Atorvastatin 40 Mg Tab PO 40 mg QHS RUBY Administration Benzocaine 3 spray 11/23/21 10:00 Benzocaine 20% [place] 0.5 Ml Unit Dose MM 11/23/21 13:00 PREOP NR Bisacodyl 10 mg 11/12/21 19:10 Bisacodyl 10 Mg Rect Supp DC QDAY PRN Constipation Clopidogrel Bisulfate 75 mg 11/13/21 10:00 11/22/21 09:13 Clopidogrel 75 Mg Tab PO 75 mg QDAY RUBY Administration Dextrose 0 ml 11/13/21 07:05 11/22/21 06:01 Dextrose 10% *Hypoglycemia IV 250 ml PRN PRN Administration Hypoglycemia Guaifenesin 200 mg 11/21/21 18:35 11/22/21 17:59 Guaifenesin 100 Mg/5 Ml Oral Liqd PO 200 mg Q4H PRN Administration Cough Heparin Sodium (Porcine) 5,000 unit 11/20/21 22:00 11/23/21 06:29 Heparin 5,000 Unit/1 Ml Vial SUB-Q 5,000 unit Q8HR RUBY Administration Hydralazine HCl 10 mg 11/20/21 00:00 Hydralazine 20 Mg/1 Ml Inj IV Q6H PRN Hypertension Hydromorphone HCl 0.5 mg 11/12/21 19:10 11/18/21 11:42 Hydromorphone 1 Mg/1 Ml Inj IV 0.5 mg Q23H PRN Administration Pain , Severe (7-10) Dextrose 1,000 mls @ 100 mls/hr 11/19/21 22:00 11/22/21 14:25 D10w IV 100 mls/hr DIRECT RUBY Administration Sodium Chloride 1,000 mls @ 42 mls/hr 11/23/21 11:00 Nacl 0.9% 1000 Ml IV DIRECT RUBY Magnesium Hydroxide 30 ml 11/12/21 19:10 Magnesium Hydroxide (Mom) Oral Liqd Udc PO Q4H PRN Constipation Metoclopramide HCl 10 mg 11/12/21 19:10 Metoclopramide 10 Mg Tab PO Q6H PRN Nausea And Vomiting Ondansetron HCl 4 mg 11/12/21 19:10 11/22/21 18:00 Ondansetron 4 Mg/2 Ml Inj IV 4 mg Q8H PRN Administration Nausea And Vomiting Oxycodone/Acetaminophen 1 tab 11/12/21 19:10 Oxycodone /Acetaminophen 5-325mg Tab PO Q16H PRN Pain, Moderate (4-6) Promethazine HCl 25 mg 11/12/21 19:10 11/21/21 05:45 Promethazine 25 Mg Rect Supp DC 25 mg Q6H PRN Administration Nausea And Vomiting Simple Syrup 15 ml 11/21/21 13:00 Simple Syrup 15 Ml FEEDTUBE PRN PRN Hypoglycemia Simple Syrup 30 ml 11/21/21 13:00 Simple Syrup 15 Ml FEEDTUBE PRN PRN Hypoglycemia Sodium Bicarbonate 325 mg 11/21/21 13:00 Sodium Bicarbonate 325 Mg Tab FEEDTUBE PRN PRN For Clogged Feeding Tube Sodium Chloride 10 ml 11/12/21 19:10 11/20/21 21:40 Sodium Chloride 0.9% 10 Ml Flush Syringe IV 10 ml PRN PRN Administration LINE FLUSH Nutrition/Malnutrition Assess - Dietary Evaluation Nutrition/Malnutrition Findings: Nutrition Notes Start: 11/13/21 13:00 Freq: Status: Active Protocol: Document 11/21/21 11:46 ANEESH (Rec: 11/21/21 12:48 ANEESH [id number]) Nutrition Notes Initial or Follow up Brief Note Current Diet TF-Osmolite 1.5 [place] @ 40 ml/hr (since B 11/21). Height 5 ft 6 in Weight 57.5 kg [place] Body Weight (kg) 64.54 BMI 20.5 Weight change and time frame No body weight change reported in 2 days. Weight Status Appropriate Subjective/Other Information RD consult to write/manage TF. I placed the order for Osmolite as recommended on . Will check for tolerance at F/ U. Percent of energy/protein needs met: Prescribed TF-Osmolite 1.5 Bijan @ 40 ml/hr provides for energy/protein needs (1,390 Kcal/58 g) during LOS, 83% Kcal; 100% AA. #1 Nutrition Diagnosis Swallowing difficulty Diagnosis Progress(for reassessment Improved documentation) Is patient on ventilator? No Is Patient Ambulatory and/or Out of Bed Yes REE-([place]-St. Jeor-ambulatory/OOB) [ 1706.575 [id number]] Kcal/Kg value to use for calculation 29 Approximate Energy Requirements Using 1668 kcal/Kg Calculation Used for Recommendations Kcal/kg Additional Notes Protein: 0.8-1 g/Kg ABW; 46-58 g/day. Fluids: 1 ml/Kcal, or as per MD. Nutrition Intervention Nutrition Support: Start Osmolite 1.5 [place] @ 40 ml /hr. Flush: 160 ml water Q 4 hr, or as per MD. Kcal 1,390 Protein (gm) 58 Carbohydrates (gm) 189 Fat (gm) 46 Fluid (mL) 706 Fiber (gm) 0 % RDI: 83% Kcal; 100% AA. Goal #1 Provide at least 75% of energy /protein needs through Enteral Feeding during LOS. Goal #2 Maintain body weight within +/ -3% of admission body weight during LOS. Follow-Up By: 11/24/21 Additional Comments Continue monitoring TF tolerance and BM.
[2021-11-23] MEDS ORDERED: BENZOCAINE 20% TOP SPRAY 0.5 ML UNIT DOSE MM NR (10:00)
[2021-11-23] MEDS ORDERED: SODIUM CHLORIDE 0.9% 1000 ML 1,000 ML IV SCH (10:00)
--- NOTE | 2021-11-23 10:46 | Anesthesia Day of Surgery ---
Anesthesia Day of Surgery - Day of Surgery Patient Examined: No Patient H&P Reviewed: Yes (No change since previous anesthesia consult. ASA 3) Patient is NPO: Yes
--- NOTE | 2021-11-23 12:50 | Progress Note ---
Assessment and Plan 61-year-old male with vascular dementia and history of CVA who presented to the ED on 11/12/2021 for diminished cognition and sudden onset right-sided weakness. CVA Vascular dementia Debility Echo 11/12/2021-EF 55 to 60%. Normal LV segmental wall motion. Right ventricle is normal in size right ventricle systolic function is normal. Saline bubble study did not demonstrate PFO RICH 11/23/2021-no evidence of intracardiac thrombus or spontaneous echo contrast or mass. EF 55 to 60%. No evidence of significant valvulopathy. No pericardial effusion. Mild aortic plaque Plan: Patient for RICH today. RICH results noted above Patient tolerated procedure well with no complications Discussed RICH findings with patient's next of kin who verbalized understanding acknowledgment Cardiac status otherwise stable. Will see as needed Patient seen in conjunction with Dr. Singer who agrees with this plan of care - Patient Problems (1) CVA (cerebral vascular accident) Current Visit: Yes Status: Acute (2) Debility Current Visit: Yes Status: Acute (3) Dysarthria due to acute cerebrovascular accident (CVA) Current Visit: Yes Status: Acute (4) Dysphagia Current Visit: Yes Status: Acute Qualifiers: Dysphagia type: oropharyngeal phase Qualified Code(s): R13.12 - Dysphagia, oropharyngeal phase (5) History of stroke Current Visit: Yes Status: Acute (6) Right sided weakness Current Visit: Yes Status: Acute Subjective Date of service: 11/23/21 Principal diagnosis: PEG check/ CVA Interval history: Patient for RICH today Lots of interference on telemetry. No apparent episodes of A. fib. Patient appears to be sinus rate trending 60s-70s Objective Vital Signs Temp Pulse Pulse Pulse Pulse Resp Resp 11/23/21 12:00 74 11/23/21 11:30 76 11/23/21 11:00 77 11/23/21 10:53 77 11/23/21 10:16 91 H 10 L 11/23/21 10:04 91 H 11/23/21 09:50 96 H 11/23/21 07:55 98.3 F 71 16 11/23/21 07:35 71 11/23/21 04:27 98.3 F 79 18 11/23/21 00:20 99.6 F 82 20 11/22/21 23:00 03/24/22 19:14 99.3 F 81 20 11/22/21 16:05 98.9 F 82 16 Resp Resp BP BP BP BP Pulse Ox 11/23/21 12:00 22 133/70 11/23/21 11:30 18 138/78 11/23/21 11:00 22 136/75 11/23/21 10:53 22 137/78 11/23/21 10:16 159/82 11/23/21 10:04 10 L 159/82 11/23/21 09:50 20 166/80 11/23/21 07:55 141/73 100 11/23/21 07:35 11/23/21 04:27 131/75 96 11/23/21 00:20 145/79 99 11/22/21 23:00 97 11/22/21 19:14 160/81 99 11/22/21 16:05 155/82 100 Pulse Ox Pulse Ox Pulse Ox 11/23/21 12:00 96 11/23/21 11:30 99 11/23/21 11:00 100 11/23/21 10:53 100 11/23/21 10:16 100 11/23/21 10:04 100 11/23/21 09:50 97 11/23/21 07:55 11/23/21 07:35 11/23/21 04:27 11/23/21 00:20 11/22/21 23:00 11/22/21 19:14 11/22/21 16:05 - Physical Examination General: No Apparent Distress HEENT: Positive: Normocephaly (AMS), Mucus Membranes Dry Neck: Positive: trachea midline Cardiac: Positive: Reg Rate and Rhythm Lungs: Positive: Normal Breath Sounds Neuro: Positive: Other (Unable to assess) Abdomen: Positive: Soft Skin: Negative: Rash Extremities: Present: upper extr. pulses. Absent: edema - Labs and Meds Comprehensive Metabolic Panel 11/22/21 Range/Units 12:02 Potassium 3.0 L (3.6-5.0) mmol/L - Imaging and Cardiology Echo: report reviewed - Telemetry EKG Rhythm: Sinus Rhythm - EKG Sinus rhythms and dysrhythmias: sinus rhythm
[2021-11-23] MEDS: CLOPIDOGREL 75 MG TAB PO SCH (13:51)
[2021-11-23] MEDS: ASPIRIN 325 MG TAB PO SCH (13:51)
--- NOTE | 2021-11-23 14:58 | Post Anesthesia Evaluation ---
- Post Anesthesia Evaluation Patient Participated: Yes Airway Patent: Yes Stable Respiratory Function: Yes Nausea/Vomiting: No Temp > 96.8F: Yes Pain Manageable: Yes Adequeate Hydration: Yes Anesthesia Complications: No
[2021-11-23] MEDS ORDERED: POTASSIUM CHLORIDE 20 MEQ PACKET FEEDTUBE ONE (18:00)
[2021-11-23] MEDS: DEXTROSE 10% IN WATER 1,000 ML IV SCH (18:50)
[2021-11-24] MEDS: hydrALAZINE 20 MG/1 ML INJ IV PRN ×2 (00:10→21:39)
[2021-11-24] MEDS: HEPARIN 5,000 UNIT/1 ML VIAL SUB-Q SCH ×3 (05:56→22:54)
[2021-11-24] MEDS: DEXTROSE 10% IN WATER 1,000 ML IV SCH (05:56)
[2021-11-24 06:43] LABS: Blood Urea Nitrogen 4 mg/dL (9-20); Calcium 9.1 mg/dL (8.4-10.2); Hemolysis Index 1
[2021-11-24 06:56] LABS: BUN/Creatinine Ratio 6
[2021-11-24] MEDS: ASPIRIN 325 MG TAB PO SCH (09:33)
[2021-11-24] MEDS: CLOPIDOGREL 75 MG TAB PO SCH (09:33)
--- NOTE | 2021-11-24 11:44 | Progress Note ---
Assessment and Plan Assessment and Plan 61 YO Male with Vascular Dementia, Cerebral Atherosclerosis, CVA presents to ED for evaluation. Patient has diminished cognition and is unable to provide detailed history. Patient history taken from EMS staff, ED staff, as well as patient family who was at bedside during exam and interview. As per family member reports the patient has experienced sudden onset weakness on his right side as well as increased confusion. - Patient Problems # New onset of right side weakness and speech impairment -r/o CVA (cerebral vascular accident) -NIH#5 -CT brain showed bilateral hypodense lesions -CTA brain and neck are unremarkable -MRI brain showed scattered emboli bilateral L>R r/o AF -Started On ASA and Plavix plus lipitor -echo with buble study showed EF#55-60% -LDL is #42 -Pt/ST evaluate -cardiac monitoring -Consider MCOT on D/C - RICH -noted no thrombus ,no vegetation ,no valve disease no septal defect or aneurysm is noted -will repeat CT brain due to lethargy -- showed no change in status +++++ Plan -mantain ASA and Plavix for 3 months then ASA there after -Mantain Lipitor -PT/Rehabilitation/ST # Right hemiparesis -Secondary to CVA, physical therapy consulted, supportive care. -need PT/ST evaluate # Dysarthria and Dysphagia Speech therapy consulted, supportive care, -had peg tube feeding # Debility Physical therapy consulted, supportive care. # Hypoglycemia -Dextrose therapy. Repeat BMP in a.m. # DVT prophylaxis -SCD to bilateral lower extremities while in bed Subjective Date of service: 11/24/21 Principal diagnosis: PEG check/ CVA Interval history: slightly sleepy move left side to stimuli , more alert today , follow only very simple command MRI is noted he is with peg tube feeding repeat CT brain showed no significant changes RICH done is unremarkable Objective - Vital Sign Vital Signs - 12hr 11/24/21 11/24/21 11/24/21 00:22 04:12 07:45 Temperature 98.5 F 99.0 F Pulse Rate 85 80 Pulse Rate [ 73 From Monitor] Respiratory 16 18 20 Rate Blood Pressure 147/73 155/83 O2 Sat by Pulse 96 100 100 Oximetry - General Apperance Constitutional: comfortable - EENT EENT: PERRL, mucous membranes moist - Respiratory Respiratory: lungs clear, rhonchi - Cardiovascular Cardiovascular: regular rate, normal S1, normal S2 Extremities: no peripheral edema bilat, no clubbing, cyanosis - Gastrointestinal Gastrointestinal: normoactive bowel sounds - Integumentary Integumentary: normal - Neurologic Cranial nerve examination: PERRL, EOMI, facial droop, other (poor speech out put ) Detailed motor examination: other (right hemiplegia upper> lower 1-2/5 ) - Laboratory Findings CBC and BMP: 11/17/21 04:42 11/24/21 05:51 Abnormal Lab Findings: Abnormal Labs 11/12/21 11/12/21 11/12/21 16:48 16:48 16:48 WBC MCV 81 L MCH MCHC 35 H Lymph % (Auto) Seg Neutrophils % 76.6 H Seg Neutrophils # Thrombin Time 14.6 L Sodium 133 L Potassium Chloride 96.7 L BUN Creatinine Glucose POC Glucose Ammonia Albumin 3.6 L LDL Cholesterol Direct HDL Cholesterol Ur Specific [place] 11/12/21 11/12/21 11/12/21 16:48 17:12 18:06 WBC MCV MCH MCHC Lymph % (Auto) Seg Neutrophils % Seg Neutrophils # Thrombin Time Sodium Potassium Chloride BUN Creatinine Glucose POC Glucose 61 L Ammonia 12.0 L Albumin LDL Cholesterol Direct HDL Cholesterol Ur Specific [place] 1.060 H 11/12/21 11/13/21 11/13/21 23:01 07:29 15:47 WBC MCV MCH MCHC Lymph % (Auto) Seg Neutrophils % Seg Neutrophils # Thrombin Time Sodium Potassium Chloride BUN Creatinine Glucose POC Glucose 118 H 148 H 125 H Ammonia Albumin LDL Cholesterol Direct HDL Cholesterol Ur Specific [place] 11/14/21 11/14/21 11/15/21 16:15 21:47 16:52 WBC MCV MCH MCHC Lymph % (Auto) Seg Neutrophils % Seg Neutrophils # Thrombin Time Sodium Potassium Chloride BUN Creatinine Glucose POC Glucose 179 H 154 H 126 H Ammonia Albumin LDL Cholesterol Direct HDL Cholesterol Ur Specific [place] 11/15/21 11/15/21 11/16/21 18:53 18:53 07:45 WBC 12.3 H MCV 81 L MCH MCHC Lymph % (Auto) Seg Neutrophils % Seg Neutrophils # Thrombin Time Sodium Potassium 3.1 L D Chloride 97.4 L BUN 4 L Creatinine Glucose 130 H POC Glucose 118 H Ammonia Albumin LDL Cholesterol Direct HDL Cholesterol Ur Specific [place] 11/16/21 11/17/21 11/17/21 20:04 04:42 04:42 WBC 13.9 H MCV 80 L MCH 27 L MCHC Lymph % (Auto) 9.4 L Seg Neutrophils % 84.1 H Seg Neutrophils # 11.7 H Thrombin Time Sodium 136 L Potassium 3.2 L Chloride BUN 5 L Creatinine 0.7 L Glucose 111 H POC Glucose 145 H Ammonia Albumin LDL Cholesterol Direct HDL Cholesterol Ur Specific [place] 11/17/21 11/18/21 11/18/21 07:29 08:00 22:03 WBC MCV MCH MCHC Lymph % (Auto) Seg Neutrophils % Seg Neutrophils # Thrombin Time Sodium Potassium Chloride BUN Creatinine Glucose POC Glucose 107 H 116 H 124 H Ammonia Albumin LDL Cholesterol Direct HDL Cholesterol Ur Specific [place] 11/19/21 11/19/21 11/19/21 07:37 09:53 18:14 WBC MCV MCH MCHC Lymph % (Auto) Seg Neutrophils % Seg Neutrophils # Thrombin Time Sodium Potassium 3.2 L Chloride BUN 8 L Creatinine 0.6 L Glucose POC Glucose 119 H Ammonia Albumin LDL Cholesterol Direct 42 L HDL Cholesterol 32 L Ur Specific [place] 11/20/21 11/20/21 11/20/21 07:37 09:19 11:42 WBC MCV MCH MCHC Lymph % (Auto) Seg Neutrophils % Seg Neutrophils # Thrombin Time Sodium Potassium 3.1 L Chloride BUN Creatinine Glucose POC Glucose 146 H 154 H Ammonia Albumin LDL Cholesterol Direct HDL Cholesterol Ur Specific [place] 11/20/21 11/20/21 11/21/21 16:13 21:30 07:41 WBC MCV MCH MCHC Lymph % (Auto) Seg Neutrophils % Seg Neutrophils # Thrombin Time Sodium Potassium Chloride BUN Creatinine Glucose POC Glucose 111 H 108 H 159 H Ammonia Albumin LDL Cholesterol Direct HDL Cholesterol Ur Specific [place] 11/21/21 11/21/21 11/21/21 12:10 16:13 20:44 WBC MCV MCH MCHC Lymph % (Auto) Seg Neutrophils % Seg Neutrophils # Thrombin Time Sodium Potassium Chloride BUN Creatinine Glucose POC Glucose 139 H 137 H 120 H Ammonia Albumin LDL Cholesterol Direct HDL Cholesterol Ur Specific [place] 11/22/21 11/22/21 11/22/21 12:02 12:26 17:10 WBC MCV MCH MCHC Lymph % (Auto) Seg Neutrophils % Seg Neutrophils # Thrombin Time Sodium Potassium 3.0 L Chloride BUN Creatinine Glucose POC Glucose 180 H 125 H Ammonia Albumin LDL Cholesterol Direct HDL Cholesterol Ur Specific [place] 11/22/21 11/23/21 11/23/21 22:34 08:00 12:59 WBC MCV MCH MCHC Lymph % (Auto) Seg Neutrophils % Seg Neutrophils # Thrombin Time Sodium Potassium 3.3 L Chloride BUN Creatinine Glucose POC Glucose 121 H 113 H Ammonia Albumin LDL Cholesterol Direct HDL Cholesterol Ur Specific [place] 11/24/21 11/24/21 11/24/21 05:34 05:51 06:41 WBC MCV MCH MCHC Lymph % (Auto) Seg Neutrophils % Seg Neutrophils # Thrombin Time Sodium Potassium 3.3 L Chloride BUN 4 L Creatinine 0.7 L Glucose POC Glucose 69 L 129 H Ammonia Albumin LDL Cholesterol Direct HDL Cholesterol Ur Specific [place]
--- NOTE | 2021-11-24 19:59 | Progress Note ---
Assessment and Plan Assessment and plan: 61 YO Male with Vascular Dementia, Cerebral Atherosclerosis, CVA presents to ED for evaluation of CVA patient found to have clinical symptoms consistent with CVA complicated by dysphagia, dysarthria. Patient also appears to have expressive aphasia. Patient also found to have hypoglycemia and was treated with dextrose therapy with mild improvement in symptoms. Patient admitted to telemetry and initiated on stroke protocol. 61 YO Male with Vascular Dementia, Cerebral Atherosclerosis, CVA presents to ED for evaluation of CVA patient found to have clinical symptoms consistent with CVA complicated by dysphagia, dysarthria. Patient also appears to have expressive aphasia. Patient also found to have hypoglycemia and was treated with dextrose therapy with mild improvement in symptoms. Patient admitted to telemetry and initiated on stroke protocol. Neuro work-up as mentioned below --Acute CVA with right hemiparesis; Aspirin and statin, physical therapy occupational therapy rehabilitation Supportive care Subacute rehab versus SNF versus home with home health when s table MRI brain; a few small scattered areas of ischemia embolic phenomenon should be considered otherwise no focal mass acute hemorrhage hydrocephalus or acute large territorial infarct seen sinus disease noted --Embolic CVA ; per MRI brain ; Neurology recommended RICH to rule out cardiac source of embolic phenomena RICH no thrombus ,no vegetation ,no valve disease no septal defect or aneurysm is noted Echo 11/12/2021-EF 55 to 60%. Normal LV segmental wall motion. Right ventricle is normal in size right ventricle systolic function is normal. Saline bubble study did not demonstrate PFO RICH 11/23/2021-no evidence of intracardiac thrombus or spontaneous echo contrast or mass. EF 55 to 60%. No evidence of significant valvulopathy. No pericardial effusion. Mild aortic plaque --Severe toxic metabolic encephalopathy; Neuro work-up reviewed Acute CVA with right hemiparesis Continue supportive care --expressive aphasia; Speech therapy, supportive care --Dysarthria; Speech therapy, supportive care --Oropharyngeal dysphagia; GI evaluated the patient, status post PEG placement 11/16/2021 Continue tube feeding, aspiration precautions --General debility; PT OT supportive care Subacute rehab -Hypokalemia Replenish and monitor -Hypoglycemia; Closely monitor blood sugars Adjust medications as needed Avoid hypoglycemic episodes --DVT prophylaxis; Subcu heparin. PT evaluation OT evaluation noted and appreciated PT/OT recommended subacute rehab placement Closely monitor the patient and adjust management as needed Plan of care reviewed with the patient and his nurse. DC planning per case management/subacute rehab placement COVID-19 prior to discharge. Brief history and daily hospital course; Patient with acute embolic CVA, neuro work-up reviewed, neurologist recommended RICH study. Closely monitor 11/13/2021. Continue secondary prevention with aspirin and Lipitor. Check MRI brain and echocardiogram. CTA of head and neck are negative. Await neurology consultation. Await PT and ST evaluations 11/14/2021. Continue secondary prevention with aspirin and Lipitor. MRI reveals a few small scattered areas of ischemia in the area of the corpus callosum left foot of the midline and minimal involvement in the ganglial capsular region on the right which could represent embolic phenomena. No focal mass, acute hemorrhage or hydrocephalus. No acute large territorial infarct seen. Echocardiogram did not reveal thrombi/emboli and no PFO. Physical therapy recommends subacute rehab. Speech therapy did not evaluate the patient yester day. Await speech therapy evaluation to determine if patient will need Dobbhoff tube feeding. Continue D10 IV fluid for now 11/15/2021. Speech therapy reports patient is aspiration risk. Patient exhibits a pharyngeal phase dysphagia complicated by a swallowing reflex delay. We will consult GI for PEG tube placement. Placed DHT for now and consult dietitian for tube feeding 11/16/2021. PEG placement per GI today. Pt to d/c home with HH. Family education with TF. Also, CM to arrrange for supplies. 11/17/2021. PEG was placed yesterday and patient tolerated tube feedings. Await for case management to arrange for tube feeding supplies and education. Continue PT/OT/ST. Continue secondary prevention with aspirin and Lipitor 11/18/2021. Continue TF with aspiration precautions. Await for case management to arrange for tube feeding supplies and education. Continue PT/OT/ST. Amber nue secondary prevention with aspirin and Lipitor 11/19/2021. Continue TF with aspiration precautions. Family education with regards to tube feeding. Continue PT/OT/ST. Continue secondary prevention with aspirin and Lipitor. 11/20/2021; tube feeding diet, PEG is functional, DC planning per case management 11/21/21; possible embolic CVA neuro recommended RICH, Cardiology consulted ,RICH requested 11/22; patient was not n.p.o. midnight for unknown reason[though n.p.o. order was given] RICH rescheduled for tomorrow, n.p.o. from midnight. Strictly advised the nurse to make sure patient is n.p.o. from midnight For possible RICH tomorrow 11/23/2021; status post RICH unremarkable per cardiology, Patient with embolic CVA 11/24; RICH negative, DC planning per case management PT and OT recommended subacute placement Disposition; awaiting placement, hypokalemia 40 mEq p.o. KCl x1 History Interval history: I have have seen and examined the patient at the bedside Patient's chart and medications reviewed No new events reported by the nursing Vital signs noted RICH is negative Hospitalist Physical - Constitutional Vitals: Temp Pulse Resp BP Pulse Ox 98.3 F 75 20 153/85 100 11/24/21 15:43 11/24/21 15:43 11/24/21 15:43 11/24/21 15:43 11/24/21 15:43 General appearance: Present: no acute distress, cachectic, disheveled, other (Lethargic) - EENT Eyes: Present: PERRL, EOM intact - Neck Neck: Present: supple, normal ROM - Respiratory Respiratory effort: normal Respiratory: bilateral: diminished, negative: rales, rhonchi, wheezing - Cardiovascular Rhythm: regular Heart Sounds: Present: S1 & S2 - Extremities Extremities: no ischemia, No edema - Abdominal General gastrointestinal: soft, non-tender, non-distended, other (PEG in place) - Integumentary Integumentary: Present: clear, warm - Psychiatric Psychiatric: other (Minimally communicative) - Neurologic Neurologic: moves all extremities (CVA with residual weakness) HEART Score - HEART Score Troponin: Troponin T < 0.010 ng/mL (0.00-0.029) 11/12/21 16:48 Results - Labs CBC & Chem 7: 11/17/21 04:42 11/24/21 05:51 Labs: Laboratory Last Values WBC 13.9 K/mm3 (4.5-11.0) H 11/17/21 04:42 RBC 4.69 M/mm3 (3.65-5.03) 11/17/21 04:42 Hgb 12.6 gm/dl (11.8-15.2) 11/17/21 04:42 Hct 37.3 % (35.5-45.6) 11/17/21 04:42 MCV 80 fl (84-94) L 11/17/21 04:42 MCH 27 pg (28-32) L 11/17/21 04:42 MCHC 34 % (32-34) 11/17/21 04:42 RDW 13.3 % (13.2-15.2) 11/17/21 04:42 Plt Count 308 K/mm3 (140-440) 11/17/21 04:42 Lymph % (Auto) 9.4 % (13.4-35.0) L 11/17/21 04:42 [place] % (Auto) 5.8 % (0.0-7.3) 11/17/21 04:42 Eos % (Auto) 0.0 % (0.0-4.3) 11/17/21 04:42 Baso % (Auto) 0.7 % (0.0-1.8) 11/17/21 04:42 Lymph # (Auto) 1.3 K/mm3 (1.2-5.4) 11/17/21 04:42 [place] # (Auto) 0.8 K/mm3 (0.0-0.8) 11/17/21 04:42 Eos # (Auto) 0.0 K/mm3 (0.0-0.4) 11/17/21 04:42 Baso # (Auto) 0.1 K/mm3 (0.0-0.1) 11/17/21 04:42 Seg Neutrophils % 84.1 % (40.0-70.0) H 11/17/21 04:42 Seg Neutrophils # 11.7 K/mm3 (1.8-7.7) H 11/17/21 04:42 PT 13.3 Sec. (12.2-14.9) 11/15/21 18:53 INR 0.92 (0.87-1.13) 11/15/21 18:53 APTT 33.5 Sec. (24.2-36.6) 11/12/21 16:48 Thrombin Time 14.6 Sec. (15.1-19.6) L 11/12/21 16:48 Sodium 138 mmol/L (137-145) 11/24/21 05:51 Potassium 3.3 mmol/L (3.6-5.0) L 11/24/21 05:51 Chloride 100.4 mmol/L (98-107) 11/24/21 05:51 Carbon Dioxide 27 mmol/L (22-30) 11/24/21 05:51 Anion Gap 14 mmol/L 11/24/21 05:51 BUN 4 mg/dL (9-20) L 11/24/21 05:51 Creatinine 0.7 mg/dL (0.8-1.3) L 11/24/21 05:51 Estimated GFR > 60 ml/min 11/24/21 05:51 BUN/Creatinine Ratio 6 % 11/24/21 05:51 Glucose 79 mg/dL (75-100) 11/24/21 05:51 POC Glucose 108 mg/dL (70-105) H 11/24/21 16:51 Calcium 9.1 mg/dL (8.4-10.2) 11/24/21 05:51 Magnesium 2.00 mg/dL (1.7-2.3) 11/24/21 05:51 Total Bilirubin 0.50 mg/dL (0.1-1.2) 11/12/21 16:48 AST 18 units/L (5-40) 11/12/21 16:48 ALT 25 units/L (7-56) 11/12/21 16:48 Alkaline Phosphatase 64 units/L (35-129) 11/12/21 16:48 Ammonia 12.0 umol/L (25-60) L 11/12/21 16:48 Total Creatine Kinase 93 units/L (55-170) 11/12/21 16:48 Total Creatine Kinase 93 units/L (55-170) 11/12/21 16:48 CK-MB (CK-2) < 1.0 ng/mL (0.0-4.0) 11/12/21 16:48 CK-MB (CK-2) Rel Index 1.0 (0-4) 11/12/21 16:48 Troponin T < 0.010 ng/mL (0.00-0.029) 11/12/21 16:48 Total Protein 6.5 g/dL (6.3-8.2) 11/12/21 16:48 Albumin 3.6 g/dL (3.9-5) L 11/12/21 16:48 Albumin/Globulin Ratio 1.2 % 11/12/21 16:48 Triglycerides 37 mg/dL (2-149) 11/19/21 09:53 Cholesterol 78 mg/dL (50-199) 11/19/21 09:53 LDL Cholesterol Direct 42 mg/dL (50-130) L 11/19/21 09:53 HDL Cholesterol 32 mg/dL (40-59) L 11/19/21 09:53 Cholesterol/HDL Ratio 2.43 % 11/19/21 09:53 TSH 1.040 mlU/mL (0.270-4.200) 11/12/21 16:48 Urine Color Yellow (Yellow) 11/12/21 18:06 Urine Turbidity Clear (Clear) 11/12/21 18:06 Urine pH 6.0 (5.0-7.0) 11/12/21 18:06 Ur Specific [place] 1.060 (1.003-1.030) H 11/12/21 18:06 Urine Protein <15 mg/dl mg/dL (Negative) 11/12/21 18:06 Urine Glucose (UA) Neg mg/dL (Negative) 11/12/21 18:06 Urine Ketones Tr mg/dL (Negative) 11/12/21 18:06 Urine Blood Neg (Negative) 11/12/21 18:06 Urine Nitrite Neg (Negative) 11/12/21 18:06 Urine Bilirubin Neg (Negative) 11/12/21 18:06 Urine Urobilinogen 4.0 mg/dL (<2.0) 11/12/21 18:06 Ur Leukocyte Esterase Neg (Negative) 11/12/21 18:06 Urine WBC (Auto) < 1.0 /HPF (0.0-6.0) 11/12/21 18:06 Urine RBC (Auto) 1.0 /HPF (0.0-6.0) 11/12/21 18:06 U Epithel Cells (Auto) 3.0 /HPF (0-13.0) 11/12/21 18:06 Urine Mucus 1+ /HPF 11/12/21 18:06 Walker/IV: Voiding Method Condom Catheter Active Medications - Current Medications Current Medications: Generic Name Dose Route Start Last Admin Trade Name Freq PRN Reason Stop Dose Admin Acetaminophen 650 mg 11/12/21 19:10 Acetaminophen 325 Mg Tab PO Q4H PRN Pain, Mild (1-3) Lipase/Protease/Amylase 1 each 11/21/21 13:00 Lipase 10,500/Protease 25,000/Amylase 43,750 (Units) Dr Steven FEEDTUBE PRN PRN For Clogged Feeding Tube Aspirin 325 mg 11/13/21 10:00 11/24/21 09:33 Aspirin 325 Mg Tab PO 325 mg QDAY RUBY Administration Atorvastatin Calcium 40 mg 11/12/21 22:00 11/23/21 21:12 Atorvastatin 40 Mg Tab PO 40 mg QHS RUBY Administration Bisacodyl 10 mg 11/12/21 19:10 Bisacodyl 10 Mg Rect Supp NV QDAY PRN Constipation Clopidogrel Bisulfate 75 mg 11/13/21 10:00 11/24/21 09:33 Clopidogrel 75 Mg Tab PO 75 mg QDAY RUBY Administration Dextrose 0 ml 11/13/21 07:05 11/22/21 06:01 Dextrose 10% *Hypoglycemia IV 250 ml PRN PRN Administration Hypoglycemia Guaifenesin 200 mg 11/21/21 18:35 11/22/21 17:59 Guaifenesin 100 Mg/5 Ml Oral Liqd PO 200 mg Q4H PRN Administration Cough Heparin Sodium (Porcine) 5,000 unit 11/20/21 22:00 11/24/21 13:37 Heparin 5,000 Unit/1 Ml Vial SUB-Q 5,000 unit Q8HR RUBY Administration Hydralazine HCl 10 mg 11/20/21 00:00 11/24/21 00:10 Hydralazine 20 Mg/1 Ml Inj IV 10 mg Q6H PRN Administration Hypertension Hydromorphone HCl 0.5 mg 11/12/21 19:10 11/18/21 11:42 Hydromorphone 1 Mg/1 Ml Inj IV 0.5 mg Q23H PRN Administration Pain , Severe (7-10) Dextrose 1,000 mls @ 100 mls/hr 11/19/21 22:00 11/24/21 13:44 D10w IV 50 mls/hr DIRECT RUBY Infusion Magnesium Hydroxide 30 ml 11/12/21 19:10 Magnesium Hydroxide (Mom) Oral Liqd Udc PO Q4H PRN Constipation Metoclopramide HCl 10 mg 11/12/21 19:10 Metoclopramide 10 Mg Tab PO Q6H PRN Nausea And Vomiting Ondansetron HCl 4 mg 11/12/21 19:10 11/22/21 18:00 Ondansetron 4 Mg/2 Ml Inj IV 4 mg Q8H PRN Administration Nausea And Vomiting Oxycodone/Acetaminophen 1 tab 11/12/21 19:10 Oxycodone /Acetaminophen 5-325mg Tab PO Q16H PRN Pain, Moderate (4-6) Promethazine HCl 25 mg 11/12/21 19:10 11/21/21 05:45 Promethazine 25 Mg Rect Supp NV 25 mg Q6H PRN Administration Nausea And Vomiting Simple Syrup 15 ml 11/21/21 13:00 Simple Syrup 15 Ml FEEDTUBE PRN PRN Hypoglycemia Simple Syrup 30 ml 11/21/21 13:00 Simple Syrup 15 Ml FEEDTUBE PRN PRN Hypoglycemia Sodium Bicarbonate 325 mg 11/21/21 13:00 Sodium Bicarbonate 325 Mg Tab FEEDTUBE PRN PRN For Clogged Feeding Tube Sodium Chloride 10 ml 11/12/21 19:10 11/24/21 09:33 Sodium Chloride 0.9% 10 Ml Flush Syringe IV 10 ml PRN PRN Administration LINE FLUSH Nutrition/Malnutrition Assess - Dietary Evaluation Nutrition/Malnutrition Findings: Nutrition Notes Start: 11/13/21 13:0 0 Freq: Status: Active Protocol: Document 11/21/21 11:46 ANEESH (Rec: 11/21/21 12:48 ANEESH [id number]) Nutrition Notes Initial or Follow up Brief Note Current Diet TF-Osmolite 1.5 B[place] @ 40 ml/hr (since B 11/21). Height 5 ft 6 in Weight 57.5 kg [place] Body Weight (kg) 64.54 BMI 20.5 Weight change and time frame No body weight change reported in 2 days. Weight Status Appropriate Subjective/Other Information RD consult to write/manage TF. I placed the order for Osmolite as recommended on . Will check for tolerance at F/ U. Percent of energy/protein needs met: Prescribed TF-Osmolite 1.5 Bijan @ 40 ml/hr provides for energy/protein needs (1,390 Kcal/58 g) during LOS, 83% Kcal; 100% AA. #1 Nutrition Diagnosis Swallowing difficulty Diagnosis Progress(for reassessment Improved documentation) Is patient on ventilator? No Is Patient Ambulatory and/or Out of Bed Yes REE-([place]-St. Jeor-ambulatory/OOB) [ 1706.575 [id number]] Kcal/Kg value to use for calculation 29 Approximate Energy Requirements Using 1668 kcal/Kg Calculation Used for Recommendations Kcal/kg Additional Notes Protein: 0.8-1 g/Kg ABW; 46-58 g/day. Fluids: 1 ml/Kcal, or as per MD. Nutrition Intervention Nutrition Support: Start Osmolite 1.5 Bijan @ 40 ml /hr. Flush: 160 ml water Q 4 hr, or as per MD. Kcal 1,390 Protein (gm) 58 Carbohydrates (gm) 189 Fat (gm) 46 Fluid (mL) 706 Fiber (gm) 0 % RDI: 83% Kcal; 100% AA. Goal #1 Provide at least 75% of energy /protein needs through Enteral Feeding during LOS. Goal #2 Maintain body weight within +/ -3% of admission body weight during LOS. Follow-Up By: 11/24/21 Additional Comments Continue monitoring TF tolerance and BM.
[2021-11-24] MEDS ORDERED: POTASSIUM CHLORIDE 20 MEQ PACKET FEEDTUBE ONE (20:11)
[2021-11-25] MEDS: DEXTROSE 10% IN WATER 1,000 ML IV SCH ×2 (01:30→17:56)
[2021-11-25] MEDS: HEPARIN 5,000 UNIT/1 ML VIAL SUB-Q SCH ×3 (06:04→22:35)
[2021-11-25] MEDS: hydrALAZINE 20 MG/1 ML INJ IV PRN (06:05)
[2021-11-25 06:31] LABS: Basophils % (Auto) 0.3 % (0.0-1.8); Eosinophils # (Auto) 0.1 K/mm3 (0.0-0.4); Eosinophils % (Auto) 1.1 % (0.0-4.3); Hematocrit 38.2 % (35.5-45.6); Hemoglobin 12.5 gm/dl (11.8-15.2); Lymphocytes # (Auto) 1.1 K/mm3 (1.2-5.4); Lymphocytes % (Auto) 10.8 % (13.4-35.0); Mean Corpuscular HGB Conc 33 % (32-34); Mean Corpuscular Volume 82 fl (84-94); Monocytes # (Auto) 0.8 K/mm3 (0.0-0.8); Monocytes % (Auto) 7.3 % (0.0-7.3); Platelet Count 489 K/mm3 (140-440); Red Blood Count 4.69 M/mm3 (3.65-5.03); Red Cell Distribution Width 13.2 % (13.2-15.2)
[2021-11-25 06:35] LABS: Blood Urea Nitrogen 4 mg/dL (9-20); Calcium 8.9 mg/dL (8.4-10.2); Hemolysis Index 10
[2021-11-25 06:44] LABS: BUN/Creatinine Ratio 7
--- NOTE | 2021-11-25 09:37 | Progress Note ---
Assessment and Plan Assessment and Plan 61 YO Male with Vascular Dementia, Cerebral Atherosclerosis, CVA presents to ED for evaluation. Patient has diminished cognition and is unable to provide detailed history. Patient history taken from EMS staff, ED staff, as well as patient family who was at bedside during exam and interview. As per family member reports the patient has experienced sudden onset weakness on his right side as well as increased confusion. - Patient Problems # New onset of right side weakness and speech impairment -r/o CVA (cerebral vascular accident) -NIH#5 -CT brain showed bilateral hypodense lesions -CTA brain and neck are unremarkable -MRI brain showed scattered emboli bilateral L>R r/o AF -Started On ASA and Plavix plus lipitor -echo with buble study showed EF#55-60% -LDL is #42 -Pt/ST evaluate -cardiac monitoring -Consider MCOT on D/C - RICH -noted no thrombus ,no vegetation ,no valve disease no septal defect or aneurysm is noted -will repeat CT brain due to lethargy -- showed no change in status +++++ Plan -mantain ASA and Plavix for 3 months then ASA there after -Mantain Lipitor -PT/Rehabilitation/ST # Right hemiparesis -Secondary to CVA, physical therapy consulted, supportive care. -need PT/ST evaluate # Dysarthria and Dysphagia Speech therapy consulted, supportive care, -had peg tube feeding # Debility Physical therapy consulted, supportive care. # Hypoglycemia -Dextrose therapy. Repeat BMP in a.m. # DVT prophylaxis -SCD to bilateral lower extremities while in bed will sign off Subjective Date of service: 11/25/21 Principal diagnosis: PEG check/ CVA Interval history: slightly sleepy move left side to stimuli , more alert today , follow only very simple command MRI is noted he is with peg tube feeding repeat CT brain showed no significant changes RICH done is unremarkable Objective - Vital Sign Vital Signs - 12hr 11/24/21 11/24/21 11/25/21 21:39 23:44 00:00 Temperature 98.8 F Pulse Rate 72 83 Respiratory 20 Rate Blood Pressure 175/87 157/82 O2 Sat by Pulse 97 100 Oximetry 11/25/21 11/25/21 11/25/21 04:39 06:05 07:36 Temperature 98.7 F 96.9 F L Pulse Rate 85 85 75 Respiratory 18 18 Rate Blood Pressure 179/89 179/89 146/73 O2 Sat by Pulse 100 98 Oximetry - General Apperance Constitutional: comfortable - EENT EENT: PERRL, mucous membranes moist - Respiratory Respiratory: lungs clear, normal breath sounds, rhonchi - Cardiovascular Cardiovascular: regular rate, normal S1, normal S2 Extremities: no peripheral edema bilat, no clubbing, cyanosis - Gastrointestinal Gastrointestinal: normoactive bowel sounds - Integumentary Integumentary: normal - Neurologic Cranial nerve examination: PERRL, EOMI, facial droop Speech examination: other (no speech out put.) Detailed motor examination: other (right is 1-2/5 upper and 3+/5 lower , left 4/5 is normal) - Laboratory Findings CBC and BMP: 11/25/21 05:36 11/25/21 05:36 Abnormal Lab Findings: Abnormal Labs 11/12/21 11/12/21 11/12/21 16:48 16:48 16:48 WBC MCV 81 L MCH MCHC 35 H Plt Count Lymph % (Auto) Lymph # (Auto) Seg Neutrophils % 76.6 H Seg Neutrophils # Thrombin Time 14.6 L Sodium 133 L Potassium Chloride 96.7 L BUN Creatinine Glucose POC Glucose Ammonia Albumin 3.6 L LDL Cholesterol Direct HDL Cholesterol Ur Specific [place] 11/12/21 11/12/21 11/12/21 16:48 17:12 18:06 WBC MCV MCH MCHC Plt Count Lymph % (Auto) Lymph # (Auto) Seg Neutrophils % Seg Neutrophils # Thrombin Time Sodium Potassium Chloride BUN Creatinine Glucose POC Glucose 61 L Ammonia 12.0 L Albumin LDL Cholesterol Direct HDL Cholesterol Ur Specific [place] 1.060 H 11/12/21 11/13/21 11/13/21 23:01 07:29 15:47 WBC MCV MCH MCHC Plt Count Lymph % (Auto) Lymph # (Auto) Seg Neutrophils % Seg Neutrophils # Thrombin Time Sodium Potassium Chloride BUN Creatinine Glucose POC Glucose 118 H 148 H 125 H Ammonia Albumin LDL Cholesterol Direct HDL Cholesterol Ur Specific [place] 11/14/21 11/14/21 11/15/21 16:15 21:47 16:52 WBC MCV MCH MCHC Plt Count Lymph % (Auto) Lymph # (Auto) Seg Neutrophils % Seg Neutrophils # Thrombin Time Sodium Potassium Chloride BUN Creatinine Glucose POC Glucose 179 H 154 H 126 H Ammonia Albumin LDL Cholesterol Direct HDL Cholesterol Ur Specific [place] 11/15/21 11/15/2122 18:53 18:53 07:45 WBC 12.3 H MCV 81 L MCH MCHC Plt Count Lymph % (Auto) Lymph # (Auto) Seg Neutrophils % Seg Neutrophils # Thrombin Time Sodium Potassium 3.1 L D Chloride 97.4 L BUN 4 L Creatinine Glucose 130 H POC Glucose 118 H Ammonia Albumin LDL Cholesterol Direct HDL Cholesterol Ur Specific [place] 11/16/21 11/17/21 11/17/21 20:04 04:42 04:42 WBC 13.9 H MCV 80 L MCH 27 L MCHC Plt Count Lymph % (Auto) 9.4 L Lymph # (Auto) Seg Neutrophils % 84.1 H Seg Neutrophils # 11.7 H Thrombin Time Sodium 136 L Potassium 3.2 L Chloride BUN 5 L Creatinine 0.7 L Glucose 111 H POC Glucose 145 H Ammonia Albumin LDL Cholesterol Direct HDL Cholesterol Ur Specific [place] 11/17/21 11/18/21 11/18/21 07:29 08:00 22:03 WBC MCV MCH MCHC Plt Count Lymph % (Auto) Lymph # (Auto) Seg Neutrophils % Seg Neutrophils # Thrombin Time Sodium Potassium Chloride BUN Creatinine Glucose POC Glucose 107 H 116 H 124 H Ammonia Albumin LDL Cholesterol Direct HDL Cholesterol Ur Specific [place] 11/19/21 11/19/21 11/19/21 07:37 09:53 18:14 WBC MCV MCH MCHC Plt Count Lymph % (Auto) Lymph # (Auto) Seg Neutrophils % Seg Neutrophils # Thrombin Time Sodium Potassium 3.2 L Chloride BUN 8 L Creatinine 0.6 L Glucose POC Glucose 119 H Ammonia Albumin LDL Cholesterol Direct 42 L HDL Cholesterol 32 L Ur Specific [place] 11/20/21 11/20/21 11/20/21 07:37 09:19 11:42 WBC MCV MCH MCHC Plt Count Lymph % (Auto) Lymph # (Auto) Seg Neutrophils % Seg Neutrophils # Thrombin Time Sodium Potassium 3.1 L Chloride BUN Creatinine Glucose POC Glucose 146 H 154 H Ammonia Albumin LDL Cholesterol Direct HDL Cholesterol Ur Specific [place] 11/20/21 11/20/21 11/21/21 16:13 21:30 07:41 WBC MCV MCH MCHC Plt Count Lymph % (Auto) Lymph # (Auto) Seg Neutrophils % Seg Neutrophils # Thrombin Time Sodium Potassium Chloride BUN Creatinine Glucose POC Glucose 111 H 108 H 159 H Ammonia Albumin LDL Cholesterol Direct HDL Cholesterol Ur Specific [place] 11/21/21 11/21/21 11/21/21 12:10 16:13 20:44 WBC MCV MCH MCHC Plt Count Lymph % (Auto) Lymph # (Auto) Seg Neutrophils % Seg Neutrophils # Thrombin Time Sodium Potassium Chloride BUN Creatinine Glucose POC Glucose 139 H 137 H 120 H Ammonia Albumin LDL Cholesterol Direct HDL Cholesterol Ur Specific [place] 11/22/21 11/22/21 11/22/21 12:02 12:26 17:10 WBC MCV MCH MCHC Plt Count Lymph % (Auto) Lymph # (Auto) Seg Neutrophils % Seg Neutrophils # Thrombin Time Sodium Potassium 3.0 L Chloride BUN Creatinine Glucose POC Glucose 180 H 125 H Ammonia Albumin LDL Cholesterol Direct HDL Cholesterol Ur Specific [place] 11/22/21 11/23/21 11/23/21 22:34 08:00 12:59 WBC MCV MCH MCHC Plt Count Lymph % (Auto) Lymph # (Auto) Seg Neutrophils % Seg Neutrophils # Thrombin Time Sodium Potassium 3.3 L Chloride BUN Creatinine Glucose POC Glucose 121 H 113 H Ammonia Albumin LDL Cholesterol Direct HDL Cholesterol Ur Specific [place] 11/24/21 11/24/21 11/24/21 05:34 05:51 06:41 WBC MCV MCH MCHC Plt Count Lymph % (Auto) Lymph # (Auto) Seg Neutrophils % Seg Neutrophils # Thrombin Time Sodium Potassium 3.3 L Chloride BUN 4 L Creatinine 0.7 L Glucose POC Glucose 69 L 129 H Ammonia Albumin LDL Cholesterol Direct HDL Cholesterol Ur Specific [place] 11/24/21 11/25/21 11/25/21 16:51 00:45 05:36 WBC MCV 82 L MCH 27 L MCHC Plt Count 489 H Lymph % (Auto) 10.8 L Lymph # (Auto) 1.1 L Seg Neutrophils % 80.5 H Seg Neutrophils # 8.3 H Thrombin Time Sodium Potassium Chloride BUN Creatinine Glucose POC Glucose 108 H 113 H Ammonia Albumin LDL Cholesterol Direct HDL Cholesterol Ur Specific [place] 11/25/21 05:36 WBC MCV MCH MCHC Plt Count Lymph % (Auto) Lymph # (Auto) Seg Neutrophils % Seg Neutrophils # Thrombin Time Sodium 135 L Potassium Chloride BUN 4 L Creatinine 0.6 L Glucose 131 H POC Glucose Ammonia Albumin LDL Cholesterol Direct HDL Cholesterol Ur Specific [place]
[2021-11-25] MEDS: ASPIRIN 325 MG TAB PO SCH (10:16)
[2021-11-25] MEDS: CLOPIDOGREL 75 MG TAB PO SCH (10:16)
--- NOTE | 2021-11-25 20:22 | Progress Note ---
Assessment and Plan Assessment and plan: 61 YO Male with Vascular Dementia, Cerebral Atherosclerosis, CVA presents to ED for evaluation of CVA patient found to have clinical symptoms consistent with CVA complicated by dysphagia, dysarthria. Patient also appears to have expressive aphasia. Patient also found to have hypoglycemia and was treated with dextrose therapy with mild improvement in symptoms. Patient admitted to telemetry and initiated on stroke protocol. 61 YO Male with Vascular Dementia, Cerebral Atherosclerosis, CVA presents to ED for evaluation of CVA patient found to have clinical symptoms consistent with CVA complicated by dysphagia, dysarthria. Patient also appears to have expressive aphasia. Patient also found to have hypoglycemia and was treated with dextrose therapy with mild improvement in symptoms. Patient admitted to telemetry and initiated on stroke protocol. Neuro work-up as mentioned below --Acute CVA with right hemiparesis; Aspirin and statin, physical therapy occupational therapy rehabilitation Supportive care Subacute rehab versus SNF versus home with home health when s table MRI brain; a few small scattered areas of ischemia embolic phenomenon should be considered otherwise no focal mass acute hemorrhage hydrocephalus or acute large territorial infarct seen sinus disease noted --Embolic CVA ; per MRI brain ; Neurology recommended RICH to rule out cardiac source of embolic phenomena RICH no thrombus ,no vegetation ,no valve disease no septal defect or aneurysm is noted Echo 11/12/2021-EF 55 to 60%. Normal LV segmental wall motion. Right ventricle is normal in size right ventricle systolic function is normal. Saline bubble study did not demonstrate PFO RICH 11/23/2021-no evidence of intracardiac thrombus or spontaneous echo contrast or mass. EF 55 to 60%. No evidence of significant valvulopathy. No pericardial effusion. Mild aortic plaque --Severe toxic metabolic encephalopathy; Neuro work-up reviewed Acute CVA with right hemiparesis Continue supportive care --expressive aphasia; Speech therapy, supportive care --Dysarthria; Speech therapy, supportive care --Oropharyngeal dysphagia; GI evaluated the patient, status post PEG placement 11/16/2021 Continue tube feeding, aspiration precautions --General debility; PT OT supportive care Subacute rehab -Hypokalemia Replenish and monitor -Hypoglycemia; Closely monitor blood sugars Adjust medications as needed Avoid hypoglycemic episodes --DVT prophylaxis; Subcu heparin. PT evaluation OT evaluation noted and appreciated PT/OT recommended subacute rehab placement Closely monitor the patient and adjust management as needed Plan of care reviewed with the patient and his nurse. DC planning per case management/subacute rehab placement COVID-19 prior to discharge. Brief history and daily hospital course; Patient with acute embolic CVA, neuro work-up reviewed, neurologist recommended RICH study. Closely monitor 11/13/2021. Continue secondary prevention with aspirin and Lipitor. Check MRI brain and echocardiogram. CTA of head and neck are negative. Await neurology consultation. Await PT and ST evaluations 11/14/2021. Continue secondary prevention with aspirin and Lipitor. MRI reveals a few small scattered areas of ischemia in the area of the corpus callosum left foot of the midline and minimal involvement in the ganglial capsular region on the right which could represent embolic phenomena. No focal mass, acute hemorrhage or hydrocephalus. No acute large territorial infarct seen. Echocardiogram did not reveal thrombi/emboli and no PFO. Physical therapy recommends subacute rehab. Speech therapy did not evaluate the patient yester day. Await speech therapy evaluation to determine if patient will need Dobbhoff tube feeding. Continue D10 IV fluid for now 11/15/2021. Speech therapy reports patient is aspiration risk. Patient exhibits a pharyngeal phase dysphagia complicated by a swallowing reflex delay. We will consult GI for PEG tube placement. Placed DHT for now and consult dietitian for tube feeding 11/16/2021. PEG placement per GI today. Pt to d/c home with HH. Family education with TF. Also, CM to arrrange for supplies. 11/17/2021. PEG was placed yesterday and patient tolerated tube feedings. Await for case management to arrange for tube feeding supplies and education. Continue PT/OT/ST. Continue secondary prevention with aspirin and Lipitor 11/18/2021. Continue TF with aspiration precautions. Await for case management to arrange for tube feeding supplies and education. Continue PT/OT/ST. Amber nue secondary prevention with aspirin and Lipitor 11/19/2021. Continue TF with aspiration precautions. Family education with regards to tube feeding. Continue PT/OT/ST. Continue secondary prevention with aspirin and Lipitor. 11/20/2021; tube feeding diet, PEG is functional, DC planning per case management 11/21/21; possible embolic CVA neuro recommended RICH, Cardiology consulted ,RICH requested 11/22; patient was not n.p.o. midnight for unknown reason[though n.p.o. order was given] RICH rescheduled for tomorrow, n.p.o. from midnight. Strictly advised the nurse to make sure patient is n.p.o. from midnight For possible RICH tomorrow 11/23/2021; status post RICH unremarkable per cardiology, Patient with embolic CVA 11/24; RICH negative, DC planning per case management PT and OT recommended subacute placement Disposition; awaiting placement, hypokalemia 40 mEq p.o. KCl x1 11/25; DC planning per case management, pending placement Possible discharge tomorrow if stable and placement is processed History Interval history: I have seen and examined the patient at the bedside Patient's chart and medications reviewed Patient is alert and awake confused nonverbal Vital signs reviewed No new events events reported by the nursing Hospitalist Physical - Constitutional Vitals: Temp Pulse Resp BP Pulse Ox 99.0 F 91 H 16 176/92 97 11/25/21 19:51 11/25/21 19:51 11/25/21 19:51 11/25/21 19:51 11/25/21 19:51 General appearance: Present: no acute distress, cachectic, disheveled, other (Lethargic) - EENT Eyes: Present: PERRL, EOM intact - Neck Neck: Present: supple, normal ROM - Respiratory Respiratory effort: normal Respiratory: bilateral: diminished, negative: rales, rhonchi, wheezing - Cardiovascular Rhythm: regular Heart Sounds: Present: S1 & S2 - Extremities Extremities: no ischemia, No edema - Abdominal General gastrointestinal: soft, non-tender, non-distended, other (PEG tube in place) - Integumentary Integumentary: Present: clear, warm - Psychiatric Psychiatric: other (Noncommunicative) - Neurologic Neurologic: other (Minimally communicative. CVA with residual weakness) HEART Score - HEART Score Troponin: Troponin T < 0.010 ng/mL (0.00-0.029) 11/12/21 16:48 Results - Labs CBC & Chem 7: 11/25/21 05:36 11/25/21 05:36 Labs: Laboratory Last Values WBC 10.4 K/mm3 (4.5-11.0) 11/25/21 05:36 RBC 4.69 M/mm3 (3.65-5.03) 11/25/21 05:36 Hgb 12.5 gm/dl (11.8-15.2) 11/25/21 05:36 Hct 38.2 % (35.5-45.6) 11/25/21 05:36 MCV 82 fl (84-94) L 11/25/21 05:36 MCH 27 pg (28-32) L 11/25/21 05:36 MCHC 33 % (32-34) 11/25/21 05:36 RDW 13.2 % (13.2-15.2) 11/25/21 05:36 Plt Count 489 K/mm3 (140-440) H 11/25/21 05:36 Lymph % (Auto) 10.8 % (13.4-35.0) L 11/25/21 05:36 [place] % (Auto) 7.3 % (0.0-7.3) 11/25/21 05:36 Eos % (Auto) 1.1 % (0.0-4.3) 11/25/21 05:36 Baso % (Auto) 0.3 % (0.0-1.8) 11/25/21 05:36 Lymph # (Auto) 1.1 K/mm3 (1.2-5.4) L 11/25/21 05:36 [place] # (Auto) 0.8 K/mm3 (0.0-0.8) 11/25/21 05:36 Eos # (Auto) 0.1 K/mm3 (0.0-0.4) 11/25/21 05:36 Baso # (Auto) 0.0 K/mm3 (0.0-0.1) 11/25/21 05:36 Seg Neutrophils % 80.5 % (40.0-70.0) H 11/25/21 05:36 Seg Neutrophils # 8.3 K/mm3 (1.8-7.7) H 11/25/21 05:36 PT 13.3 Sec. (12.2-14.9) 11/15/21 18:53 INR 0.92 (0.87-1.13) 11/15/21 18:53 APTT 33.5 Sec. (24.2-36.6) 11/12/21 16:48 Thrombin Time 14.6 Sec. (15.1-19.6) L 11/12/21 16:48 Sodium 135 mmol/L (137-145) L 11/25/21 05:36 Potassium 3.8 mmol/L (3.6-5.0) 11/25/21 05:36 Chloride 101.4 mmol/L (98-107) 11/25/21 05:36 Carbon Dioxide 22 mmol/L (22-30) 11/25/21 05:36 Anion Gap 15 mmol/L 11/25/21 05:36 BUN 4 mg/dL (9-20) L 11/25/21 05:36 Creatinine 0.6 mg/dL (0.8-1.3) L 11/25/21 05:36 Estimated GFR > 60 ml/min 11/25/21 05:36 BUN/Creatinine Ratio 7 % 11/25/21 05:36 Glucose 131 mg/dL (75-100) H 11/25/21 05:36 POC Glucose 124 mg/dL (70-105) H 11/25/21 16:54 Calcium 8.9 mg/dL (8.4-10.2) 11/25/21 05:36 Magnesium 2.20 mg/dL (1.7-2.3) 11/25/21 05:36 Total Bilirubin 0.50 mg/dL (0.1-1.2) 11/12/21 16:48 AST 18 units/L (5-40) 11/12/21 16:48 ALT 25 units/L (7-56) 11/12/21 16:48 Alkaline Phosphatase 64 units/L (35-129) 11/12/21 16:48 Ammonia 12.0 umol/L (25-60) L 11/12/21 16:48 Total Creatine Kinase 93 units/L (55-170) 11/12/21 16:48 Total Creatine Kinase 93 units/L (55-170) 11/12/21 16:48 CK-MB (CK-2) < 1.0 ng/mL (0.0-4.0) 11/12/21 16:48 CK-MB (CK-2) Rel Index 1.0 (0-4) 11/12/21 16:48 Troponin T < 0.010 ng/mL (0.00-0.029) 11/12/21 16:48 Total Protein 6.5 g/dL (6.3-8.2) 11/12/21 16:48 Albumin 3.6 g/dL (3.9-5) L 11/12/21 16:48 Albumin/Globulin Ratio 1.2 % 11/12/21 16:48 Triglycerides 37 mg/dL (2-149) 11/19/21 09:53 Cholesterol 78 mg/dL (50-199) 11/19/21 09:53 LDL Cholesterol Direct 42 mg/dL (50-130) L 11/19/21 09:53 HDL Cholesterol 32 mg/dL (40-59) L 11/19/21 09:53 Cholesterol/HDL Ratio 2.43 % 11/19/21 09:53 TSH 1.040 mlU/mL (0.270-4.200) 11/12/21 16:48 Urine Color Yellow (Yellow) 11/12/21 18:06 Urine Turbidity Clear (Clear) 11/12/21 18:06 Urine pH 6.0 (5.0-7.0) 11/12/21 18:06 Ur Specific [place] 1.060 (1.003-1.030) H 11/12/21 18:06 Urine Protein <15 mg/dl mg/dL (Negative) 11/12/21 18:06 Urine Glucose (UA) Neg mg/dL (Negative) 11/12/21 18:06 Urine Ketones Tr mg/dL (Negative) 11/12/21 18:06 Urine Blood Neg (Negative) 11/12/21 18:06 Urine Nitrite Neg (Negative) 11/12/21 18:06 Urine Bilirubin Neg (Negative) 11/12/21 18:06 Urine Urobilinogen 4.0 mg/dL (<2.0) 11/12/21 18:06 Ur Leukocyte Esterase Neg (Negative) 11/12/21 18:06 Urine WBC (Auto) < 1.0 /HPF (0.0-6.0) 11/12/21 18:06 Urine RBC (Auto) 1.0 /HPF (0.0-6.0) 11/12/21 18:06 U Epithel Cells (Auto) 3.0 /HPF (0-13.0) 11/12/21 18:06 Urine Mucus 1+ /HPF 11/12/21 18:06 Walker/IV: Voiding Method Condom Catheter Active Medications - Current Medications Current Medications: Generic Name Dose Route Start Last Admin Trade Name Freq PRN Reason Stop Dose Admin Acetaminophen 650 mg 11/12/21 19:10 Acetaminophen 325 Mg Tab PO Q4H PRN Pain, Mild (1-3) Lipase/Protease/Amylase 1 each 11/21/21 13:00 Lipase 10,500/Protease 25,000/Amylase 43,750 (Units) Dr Steven FEEDTUBE PRN PRN For Clogged Feeding Tube Aspirin 325 mg 11/13/21 10:00 11/25/21 10:16 Aspirin 325 Mg Tab PO 325 mg QDAY RUBY Administration Atorvastatin Calcium 40 mg 11/12/21 22:00 11/24/21 22:54 Atorvastatin 40 Mg Tab PO 40 mg QHS RUBY Administration Bisacodyl 10 mg 11/12/21 19:10 Bisacodyl 10 Mg Rect Supp CA QDAY PRN Constipation Clopidogrel Bisulfate 75 mg 11/13/21 10:00 11/25/21 10:16 Clopidogrel 75 Mg Tab PO 75 mg QDAY RUBY Administration Dextrose 0 ml 11/13/21 07:05 11/22/21 06:01 Dextrose 10% *Hypoglycemia IV 250 ml PRN PRN Administration Hypoglycemia Guaifenesin 200 mg 11/21/21 18:35 11/22/21 17:59 Guaifenesin 100 Mg/5 Ml Oral Liqd PO 200 mg Q4H PRN Administration Cough Heparin Sodium (Porcine) 5,000 unit 11/20/21 22:00 11/25/21 14:37 Heparin 5,000 Unit/1 Ml Vial SUB-Q 5,000 unit Q8HR RUBY Administration Hydralazine HCl 10 mg 11/20/21 00:00 11/25/21 06:05 Hydralazine 20 Mg/1 Ml Inj IV 10 mg Q6H PRN Administration Hypertension Hydromorphone HCl 0.5 mg 11/12/21 19:10 11/18/21 11:42 Hydromorphone 1 Mg/1 Ml Inj IV 0.5 mg Q23H PRN Administration Pain , Severe (7-10) Dextrose 1,000 mls @ 100 mls/hr 11/19/21 22:00 11/25/21 17:56 D10w IV 50 mls/hr DIRECT RUBY Administration Magnesium Hydroxide 30 ml 11/12/21 19:10 Magnesium Hydroxide (Mom) Oral Liqd Udc PO Q4H PRN Constipation Metoclopramide HCl 10 mg 11/12/21 19:10 Metoclopramide 10 Mg Tab PO Q6H PRN Nausea And Vomiting Ondansetron HCl 4 mg 11/12/21 19:10 11/22/21 18:00 Ondansetron 4 Mg/2 Ml Inj IV 4 mg Q8H PRN Administration Nausea And Vomiting Oxycodone/Acetaminophen 1 tab 11/12/21 19:10 Oxycodone /Acetaminophen 5-325mg Tab PO Q16H PRN Pain, Moderate (4-6) Promethazine HCl 25 mg 11/12/21 19:10 11/21/21 05:45 Promethazine 25 Mg Rect Supp CA 25 mg Q6H PRN Administration Nausea And Vomiting Simple Syrup 15 ml 11/21/21 13:00 Simple Syrup 15 Ml FEEDTUBE PRN PRN Hypoglycemia Simple Syrup 30 ml 11/21/21 13:00 Simple Syrup 15 Ml FEEDTUBE PRN PRN Hypoglycemia Sodium Bicarbonate 325 mg 11/21/21 13:00 Sodium Bicarbonate 325 Mg Tab FEEDTUBE PRN PRN For Clogged Feeding Tube Sodium Chloride 10 ml 11/12/21 19:10 11/24/21 09:33 Sodium Chloride 0.9% 10 Ml Flush Syringe IV 10 ml PRN PRN Administration LINE FLUSH Nutrition/Malnutrition Assess - Dietary Evaluation Nutrition/Malnutrition Findings: Nutrition Notes Start: 11/13/21 13:00 Freq: Status: Active Protocol: Document 11/25/21 17:23 ANEESH (Rec: 11/25/21 17:52 ANEESH [id number]) Nutrition Notes Initial or Follow up Reassessment Current Diagnosis Stroke Other Pertinent Diagnosis Oropharyngeal Dysphagia, Disartria, R-hemiparesis, Debility, Hypoglycemia. Current Diet No Diet order, but TF-Osmolite 1.5 [place] @ 40 ml/hr (since B 11/21). Labs/Tests 11/25: Na 135, BUN 4, Crea 0.6 , Glu 131. Pertinent Medications 11/25: D10w 1000 ml @ 100 ml/ hr, other snutritionally unremarkable. Height 5 ft 6 in Weight 57.5 kg [place] Body Weight (kg) 64.54 BMI 20.5 Weight change and time frame No body weight change reported in 6 days. Weight Status Appropriate Subjective/Other Information RD consult for routine F/U on TF tolerance. NO diet order available, but spoke with RN over the phone and told me that Pt is still getting TF-Osmolite 1.5 B[place] @ 40 ml/hr, and tolerating well. RN note on 11/24/21 21:23: Awake.Oriented to person only. HOB elevated. D10 infusing to RFA. Heart monitor in place. Peg tube noted reciving osmolyte at 30 cc/hour. Checked gastric residual 5 cc. Flushed Peg tube with 100 cc of water without difficulty.. Condom catheter out will replace later. Blood pressure 175/87 Ton KEATING. Will F/U on order on the chart at F/U. Percent of energy/protein needs met: Prescribed TF-Osmolite 1.5 B[place] @ 40 ml/hr provides for energy/protein needs (1,390 Kcal/58 g) during LOS, 83% Kcal; 100% AA. Burn Absent Trauma Absent GI Symptoms Other Difficulty In Swallowing Food Allergy No Skin Integrity/Comment Assessment WNL. Current % PO Other Minimum of two criteria No #1 Nutrition Diagnosis Swallowing difficulty Diagnosis Progress(for reassessment Continues documentation) Is patient on ventilator? No Is Patient Ambulatory and/or Out of Bed Yes REE-([facility]-ambulatory/OOB) [ 1706.575 [id number]] Kcal/Kg value to use for calculation 29 Approximate Energy Requirements Using 1668 kcal/Kg Calculation Used for Recommendations Kcal/kg Additional Notes Protein: 0.8-1 g/Kg ABW; 46-58 g/day. Fluids: 1 ml/Kcal, or as per MD. Nutrition Intervention Nutrition Support: Continue Osmolite 1.5 B[place] @ 40 ml/hr. Flush: 160 ml water Q 4 hr, or as per MD. Kcal 390 Protein (gm) 58 Carbohydrates (gm) 189 Fat (gm) 46 Fluid (mL) 706 Fiber (gm) 0 % RDI: 83% Kcal; 100% AA. Goal #1 Provide at least 75% of energy /protein needs through Enteral Feeding during LOS. Goal #2 Maintain body weight within +/ -3% of admission body weight during LOS. Follow-Up By: 11/27/21 Additional Comments Will F/U on order on the chart at F/U. Continue monitoring TF tolerance and BM.
[2021-11-26] MEDS: HEPARIN 5,000 UNIT/1 ML VIAL SUB-Q SCH ×3 (06:00→22:13)
[2021-11-26] MEDS: ASPIRIN 325 MG TAB PO SCH (10:05)
[2021-11-26] MEDS: CLOPIDOGREL 75 MG TAB PO SCH (10:05)
[2021-11-26] MEDS ORDERED: LIPASE 10,500/PROTEASE 25,000/AMYLASE 43,750 (UNITS) DR CAP FEEDTUBE PRN (11:43)
[2021-11-26] MEDS ORDERED: SODIUM BICARBONATE 325 MG TAB FEEDTUBE PRN (11:43)
[2021-11-26] MEDS ORDERED: SIMPLE SYRUP 15 ML FEEDTUBE PRN ×2 (11:43)
[2021-11-26] MEDS: DEXTROSE 10% IN WATER 1,000 ML IV SCH (16:54)
--- NOTE | 2021-11-26 20:26 | Progress Note ---
Assessment and Plan Assessment and plan: 61 YO Male with Vascular Dementia, Cerebral Atherosclerosis, CVA presents to ED for evaluation of CVA patient found to have clinical symptoms consistent with CVA complicated by dysphagia, dysarthria. Patient also appears to have expressive aphasia. Patient also found to have hypoglycemia and was treated with dextrose therapy with mild improvement in symptoms. Patient admitted to telemetry and initiated on stroke protocol. 61 YO Male with Vascular Dementia, Cerebral Atherosclerosis, CVA presents to ED for evaluation of CVA patient found to have clinical symptoms consistent with CVA complicated by dysphagia, dysarthria. Patient also appears to have expressive aphasia. Patient also found to have hypoglycemia and was treated with dextrose therapy with mild improvement in symptoms. Patient admitted to telemetry and initiated on stroke protocol. Neuro work-up as mentioned below --Acute CVA with right hemiparesis; Aspirin and statin, physical therapy occupational therapy rehabilitation Supportive care Subacute rehab versus SNF versus home with home health when s table MRI brain; a few small scattered areas of ischemia embolic phenomenon should be considered otherwise no focal mass acute hemorrhage hydrocephalus or acute large territorial infarct seen sinus disease noted --Embolic CVA ; per MRI brain ; Neurology recommended RICH to rule out cardiac source of embolic phenomena RICH no thrombus ,no vegetation ,no valve disease no septal defect or aneurysm is noted Echo 11/12/2021-EF 55 to 60%. Normal LV segmental wall motion. Right ventricle is normal in size right ventricle systolic function is normal. Saline bubble study did not demonstrate PFO RICH 11/23/2021-no evidence of intracardiac thrombus or spontaneous echo contrast or mass. EF 55 to 60%. No evidence of significant valvulopathy. No pericardial effusion. Mild aortic plaque --Severe toxic metabolic encephalopathy; Neuro work-up reviewed Acute CVA with right hemiparesis Continue supportive care --expressive aphasia; Speech therapy, supportive care --Dysarthria; Speech therapy, supportive care --Oropharyngeal dysphagia; GI evaluated the patient, status post PEG placement 11/16/2021 Continue tube feeding, aspiration precautions --General debility; PT OT supportive care Subacute rehab -Hypokalemia Replenish and monitor -Hypoglycemia; Closely monitor blood sugars Adjust medications as needed Avoid hypoglycemic episodes --DVT prophylaxis; Subcu heparin. PT evaluation OT evaluation noted and appreciated PT/OT recommended subacute rehab placement Closely monitor the patient and adjust management as needed Plan of care reviewed with the patient and his nurse. DC planning per case management/subacute rehab placement COVID-19 prior to discharge. Brief history and daily hospital course; Patient with acute embolic CVA, neuro work-up reviewed, neurologist recommended RICH study. Closely monitor 11/13/2021. Continue secondary prevention with aspirin and Lipitor. Check MRI brain and echocardiogram. CTA of head and neck are negative. Await neurology consultation. Await PT and ST evaluations 11/14/2021. Continue secondary prevention with aspirin and Lipitor. MRI reveals a few small scattered areas of ischemia in the area of the corpus callosum left foot of the midline and minimal involvement in the ganglial capsular region on the right which could represent embolic phenomena. No focal mass, acute hemorrhage or hydrocephalus. No acute large territorial infarct seen. Echocardiogram did not reveal thrombi/emboli and no PFO. Physical therapy recommends subacute rehab. Speech therapy did not evaluate the patient yester day. Await speech therapy evaluation to determine if patient will need Dobbhoff tube feeding. Continue D10 IV fluid for now 11/15/2021. Speech therapy reports patient is aspiration risk. Patient exhibits a pharyngeal phase dysphagia complicated by a swallowing reflex delay. We will consult GI for PEG tube placement. Placed DHT for now and consult dietitian for tube feeding 11/16/2021. PEG placement per GI today. Pt to d/c home with HH. Family education with TF. Also, CM to arrrange for supplies. 11/17/2021. PEG was placed yesterday and patient tolerated tube feedings. Await for case management to arrange for tube feeding supplies and education. Continue PT/OT/ST. Continue secondary prevention with aspirin and Lipitor 11/18/2021. Continue TF with aspiration precautions. Await for case management to arrange for tube feeding supplies and education. Continue PT/OT/ST. Amber nue secondary prevention with aspirin and Lipitor 11/19/2021. Continue TF with aspiration precautions. Family education with regards to tube feeding. Continue PT/OT/ST. Continue secondary prevention with aspirin and Lipitor. 11/20/2021; tube feeding diet, PEG is functional, DC planning per case management 11/21/21; possible embolic CVA neuro recommended RICH, Cardiology consulted ,RICH requested 11/22; patient was not n.p.o. midnight for unknown reason[though n.p.o. order was given] RICH rescheduled for tomorrow, n.p.o. from midnight. Strictly advised the nurse to make sure patient is n.p.o. from midnight For possible RICH tomorrow 11/23/2021; status post RICH unremarkable per cardiology, Patient with embolic CVA 11/24; RICH negative, DC planning per case management PT and OT recommended subacute placement Disposition; awaiting placement, hypokalemia 40 mEq p.o. KCl x1 11/25; DC planning per case management, pending placement Possible discharge tomorrow if stable and placement is processed 11/26; patient is clinically stable for discharge Awaiting SNF placement, continue current management History Interval history: I have seen and examined the patient at the bedside Patient's chart and medications reviewed No new events reported by nursing Patient is awaiting placement Vital signs reviewed Hospitalist Physical - Constitutional Vitals: Temp Pulse Resp BP Pulse Ox 98.5 F 51 L 16 171/98 95 11/26/21 16:25 11/26/21 16:25 11/26/21 16:25 11/26/21 16:25 11/26/21 16:25 General appearance: Present: no acute distress, cachectic, disheveled, other (Lethargic) - EENT Eyes: Present: PERRL, EOM intact - Neck Neck: Present: supple, normal ROM - Respiratory Respiratory effort: normal Respiratory: bilateral: diminished, rales, rhonchi, wheezing - Cardiovascular Rhythm: regular Heart Sounds: Present: S1 & S2 - Extremities Extremities: no ischemia, No edema - Abdominal General gastrointestinal: soft, non-tender, non-distended, other - Integumentary Integumentary: Present: clear (PEG tube in place), warm - Psychiatric Psychiatric: appropriate mood/affect, cooperative - Neurologic Neurologic: moves all extremities HEART Score - HEART Score Troponin: Troponin T < 0.010 ng/mL (0.00-0.029) 11/12/21 16:48 Results - Labs CBC & Chem 7: 11/25/21 05:36 11/25/21 05:36 Labs: Laboratory Last Values WBC 10.4 K/mm3 (4.5-11.0) 11/25/21 05:36 RBC 4.69 M/mm3 (3.65-5.03) 11/25/21 05:36 Hgb 12.5 gm/dl (11.8-15.2) 11/25/21 05:36 Hct 38.2 % (35.5-45.6) 11/25/21 05:36 MCV 82 fl (84-94) L 11/25/21 05:36 MCH 27 pg (28-32) L 11/25/21 05:36 MCHC 33 % (32-34) 11/25/21 05:36 RDW 13.2 % (13.2-15.2) 11/25/21 05:36 Plt Count 489 K/mm3 (140-440) H 11/25/21 05:36 Lymph % (Auto) 10.8 % (13.4-35.0) L 11/25/21 05:36 Rich % (Auto) 7.3 % (0.0-7.3) 11/25/21 05:36 Eos % (Auto) 1.1 % (0.0-4.3) 11/25/21 05:36 Baso % (Auto) 0.3 % (0.0-1.8) 11/25/21 05:36 Lymph # (Auto) 1.1 K/mm3 (1.2-5.4) L 11/25/21 05:36 Rich # (Auto) 0.8 K/mm3 (0.0-0.8) 11/25/21 05:36 Eos # (Auto) 0.1 K/mm3 (0.0-0.4) 11/25/21 05:36 Baso # (Auto) 0.0 K/mm3 (0.0-0.1) 11/25/21 05:36 Seg Neutrophils % 80.5 % (40.0-70.0) H 11/25/21 05:36 Seg Neutrophils # 8.3 K/mm3 (1.8-7.7) H 11/25/21 05:36 PT 13.3 Sec. (12.2-14.9) 11/15/21 18:53 INR 0.92 (0.87-1.13) 11/15/21 18:53 APTT 33.5 Sec. (24.2-36.6) 11/12/21 16:48 Thrombin Time 14.6 Sec. (15.1-19.6) L 11/12/21 16:48 Sodium 135 mmol/L (137-145) L 11/25/21 05:36 Potassium 3.8 mmol/L (3.6-5.0) 11/25/21 05:36 Chloride 101.4 mmol/L (98-107) 11/25/21 05:36 Carbon Dioxide 22 mmol/L (22-30) 11/25/21 05:36 Anion Gap 15 mmol/L 11/25/21 05:36 BUN 4 mg/dL (9-20) L 11/25/21 05:36 Creatinine 0.6 mg/dL (0.8-1.3) L 11/25/21 05:36 Estimated GFR > 60 ml/min 11/25/21 05:36 BUN/Creatinine Ratio 7 % 11/25/21 05:36 Glucose 131 mg/dL (75-100) H 11/25/21 05:36 POC Glucose 95 mg/dL (70-105) 11/26/21 17:27 Calcium 8.9 mg/dL (8.4-10.2) 11/25/21 05:36 Magnesium 2.20 mg/dL (1.7-2.3) 11/25/21 05:36 Total Bilirubin 0.50 mg/dL (0.1-1.2) 11/12/21 16:48 AST 18 units/L (5-40) 11/12/21 16:48 ALT 25 units/L (7-56) 11/12/21 16:48 Alkaline Phosphatase 64 units/L (35-129) 11/12/21 16:48 Ammonia 12.0 umol/L (25-60) L 11/12/21 16:48 Total Creatine Kinase 93 units/L (55-170) 11/12/21 16:48 Total Creatine Kinase 93 units/L (55-170) 11/12/21 16:48 CK-MB (CK-2) < 1.0 ng/mL (0.0-4.0) 11/12/21 16:48 CK-MB (CK-2) Rel Index 1.0 (0-4) 11/12/21 16:48 Troponin T < 0.010 ng/mL (0.00-0.029) 11/12/21 16:48 Total Protein 6.5 g/dL (6.3-8.2) 11/12/21 16:48 Albumin 3.6 g/dL (3.9-5) L 11/12/21 16:48 Albumin/Globulin Ratio 1.2 % 11/12/21 16:48 Triglycerides 37 mg/dL (2-149) 11/19/21 09:53 Cholesterol 78 mg/dL (50-199) 11/19/21 09:53 LDL Cholesterol Direct 42 mg/dL (50-130) L 11/19/21 09:53 HDL Cholesterol 32 mg/dL (40-59) L 11/19/21 09:53 Cholesterol/HDL Ratio 2.43 % 11/19/21 09:53 TSH 1.040 mlU/mL (0.270-4.200) 11/12/21 16:48 Urine Color Yellow (Yellow) 11/12/21 18:06 Urine Turbidity Clear (Clear) 11/12/21 18:06 Urine pH 6.0 (5.0-7.0) 11/12/21 18:06 Ur Specific [place] 1.060 (1.003-1.030) H 11/12/21 18:06 Urine Protein <15 mg/dl mg/dL (Negative) 11/12/21 18:06 Urine Glucose (UA) Neg mg/dL (Negative) 11/12/21 18:06 Urine Ketones Tr mg/dL (Negative) 11/12/21 18:06 Urine Blood Neg (Negative) 11/12/21 18:06 Urine Nitrite Neg (Negative) 11/12/21 18:06 Urine Bilirubin Neg (Negative) 11/12/21 18:06 Urine Urobilinogen 4.0 mg/dL (<2.0) 11/12/21 18:06 Ur Leukocyte Esterase Neg (Negative) 11/12/21 18:06 Urine WBC (Auto) < 1.0 /HPF (0.0-6.0) 11/12/21 18:06 Urine RBC (Auto) 1.0 /HPF (0.0-6.0) 11/12/21 18:06 U Epithel Cells (Auto) 3.0 /HPF (0-13.0) 11/12/21 18:06 Urine Mucus 1+ /HPF 11/12/21 18:06 Walker/IV: Voiding Method Condom Catheter Active Medications - Current Medications Current Medications: Generic Name Dose Route Start Last Admin Trade Name Freq PRN Reason Stop Dose Admin Acetaminophen 650 mg 11/12/21 19:10 Acetaminophen 325 Mg Tab PO Q4H PRN Pain, Mild (1-3) Lipase/Protease/Amylase 1 each 11/21/21 13:00 Lipase 10,500/Protease 25,000/Amylase 43,750 (Units) Dr Steven FEEDTUBE PRN PRN For Clogged Feeding Tube Lipase/Protease/Amylase 1 each 11/26/21 11:43 Lipase 10,500/Protease 25,000/Amylase 43,750 (Units) Dr Steven FEEDTUBE PRN PRN For Clogged Feeding Tube Aspirin 325 mg 11/13/21 10:00 11/26/21 10:05 Aspirin 325 Mg Tab PO 325 mg QDAY RUBY Administration Atorvastatin Calcium 40 mg 11/12/21 22:00 11/25/21 22:35 Atorvastatin 40 Mg Tab PO 40 mg QHS RUBY Administration Bisacodyl 10 mg 11/12/21 19:10 Bisacodyl 10 Mg Rect Supp CA QDAY PRN Constipation Clopidogrel Bisulfate 75 mg 11/13/21 10:00 11/26/21 10:05 Clopidogrel 75 Mg Tab PO 75 mg QDAY RUBY Administration Dextrose 0 ml 11/13/21 07:05 11/22/21 06:01 Dextrose 10% *Hypoglycemia IV 250 ml PRN PRN Administration Hypoglycemia Guaifenesin 200 mg 11/21/21 18:35 11/22/21 17:59 Guaifenesin 100 Mg/5 Ml Oral Liqd PO 200 mg Q4H PRN Administration Cough Heparin Sodium (Porcine) 5,000 unit 11/20/21 22:00 11/26/21 13:28 Heparin 5,000 Unit/1 Ml Vial SUB-Q 5,000 unit Q8HR RUBY Administration Hydralazine HCl 10 mg 11/20/21 00:00 11/25/21 06:05 Hydralazine 20 Mg/1 Ml Inj IV 10 mg Q6H PRN Administration Hypertension Hydromorphone HCl 0.5 mg 11/12/21 19:10 11/18/21 11:42 Hydromorphone 1 Mg/1 Ml Inj IV 0.5 mg Q23H PRN Administration Pain , Severe (7-10) Dextrose 1,000 mls @ 100 mls/hr 11/19/21 22:00 11/26/21 16:54 D10w IV 50 mls/hr DIRECT RUBY Administration Magnesium Hydroxide 30 ml 11/12/21 19:10 Magnesium Hydroxide (Mom) Oral Liqd Udc PO Q4H PRN Constipation Metoclopramide HCl 10 mg 11/12/21 19:10 Metoclopramide 10 Mg Tab PO Q6H PRN Nausea And Vomiting Ondansetron HCl 4 mg 11/12/21 19:10 11/22/21 18:00 Ondansetron 4 Mg/2 Ml Inj IV 4 mg Q8H PRN Administration Nausea And Vomiting Oxycodone/Acetaminophen 1 tab 11/12/21 19:10 Oxycodone /Acetaminophen 5-325mg Tab PO Q16H PRN Pain, Moderate (4-6) Promethazine HCl 25 mg 11/12/21 19:10 11/21/21 05:45 Promethazine 25 Mg Rect Supp CA 25 mg Q6H PRN Administration Nausea And Vomiting Simple Syrup 15 ml 11/21/21 13:00 Simple Syrup 15 Ml FEEDTUBE PRN PRN Hypoglycemia Simple Syrup 30 ml 11/21/21 13:00 Simple Syrup 15 Ml FEEDTUBE PRN PRN Hypoglycemia Simple Syrup 15 ml 11/26/21 11:43 Simple Syrup 15 Ml FEEDTUBE PRN PRN Hypoglycemia Simple Syrup 30 ml 11/26/21 11:43 Simple Syrup 15 Ml FEEDTUBE PRN PRN Hypoglycemia Sodium Bicarbonate 325 mg 11/21/21 13:00 Sodium Bicarbonate 325 Mg Tab FEEDTUBE PRN PRN For Clogged Feeding Tube Sodium Bicarbonate 325 mg 11/26/21 11:43 Sodium Bicarbonate 325 Mg Tab FEEDTUBE PRN PRN For Clogged Feeding Tube Sodium Chloride 10 ml 11/12/21 19:10 11/24/21 09:33 Sodium Chloride 0.9% 10 Ml Flush Syringe IV 10 ml PRN PRN Administration LINE FLUSH Nutrition/Malnutrition Assess - Dietary Evaluation Nutrition/Malnutrition Findings: Nutrition Notes Start: 11/13/21 13:00 Freq: Status: Active Protocol: Document 11/26/21 13:51 ABY (Rec: 11/26/21 14:00 ABY [id number]) Nutrition Notes Need for Assessment generated from: MD Order Initial or Follow up Brief Note Current Diet Osmolite 1.5 at 40ml/hr Height 5 ft 6 in Weight 57.5 kg [place] Body Weight (kg) 64.54 BMI 20.5 Weight Status Appropriate Subjective/Other Information RD consulted for TF. Pt already on TF; spoke with RN via phone at 13:50 and pt tolerating TF at goal rate. Percent of energy/protein needs met: 91% energy 100% pro Is patient on ventilator? No Is Patient Ambulatory and/or Out of Bed No REE-(Edgar-St. Jeor-confined to bed) 3210.664 Calculation Used for Recommendations Edgar-St Jeor Additional Notes Pro needs 1-1.2g/k-69g/ day Fluid needs 1ml/kcal Nutrition Intervention Nutrition Support: Water flush should be 120ml q4h. Follow-Up By: 12/03/21 Additional Comments F/U: stable TF
[2021-11-27] MEDS: HEPARIN 5,000 UNIT/1 ML VIAL SUB-Q SCH (06:07)
--- NOTE | 2021-11-27 10:20 | Discharge Summary ---
Providers - Providers Date of Admission: 11/12/21 19:11 Date of discharge: 11/27/21 Attending physician: LUIS CORBETT 11/12/21 18:06 Speech Therapy Evaluation and Treat [CONS] Routine Reason For Exam: dsyphagia 11/12/21 19:11 Occupational Therapy Evaluate and Treat [CONS] Routine Comment: Reason For Exam: Neuro deficits Physical Therapy Evaluation and Treat [CONS] Routine Comment: Reason For Exam: Neuro deficits 11/12/21 23:36 Consult to Dietitian/Nutrition [CONS] Routine Physician Instructions: Reason For Exam: Reason for Consult: Pt needs oral supplement 11/13/21 00:10 Speech Therapy Evaluation and Treat [CONS] Routine Reason For Exam: stroke pt 11/13/21 07:53 Consult to Physician [CONS] Routine Comment: Consulting Provider: NHI TREVIZO Physician Instructions: Reason For Exam: CVA 11/14/21 12:39 Consult to Dietitian/Nutrition [CONS] Routine Physician Instructions: Reason For Exam: Reason for Consult: Write/Manage Tube Feeding 11/15/21 11:28 Consult to Physician [CONS] Routine Comment: Consulting Provider: NIKITA FABIAN Physician Instructions: Reason For Exam: CVA, PEG placement 11/20/21 17:47 Consult to Dietitian/Nutrition [CONS] Routine Physician Instructions: Assess nutrtn needs, initiate, modify, manage TF Reason For Exam: Reason for Consult: Write/Manage Tube Feeding Reason for Consult: Write/Manage Tube Feeding 11/21/21 12:56 Consult to Physician [CONS] Routine Comment: Consulting Provider: ALFREDITO NANCE Physician Instructions: Reason For Exam: Embolic CVA/request for RICH[rec by neurology] 11/26/21 11:43 Consult to Dietitian/Nutrition [CONS] Routine Physician Instructions: Assess nutrtn needs, initiate, modify, manage TF Reason For Exam: Reason for Consult: Write/Manage Tube Feeding Reason for Consult: Write/Manage Tube Feeding Hospitalization Reason for admission: Worsening right-sided weakness and confusion and metabolic encephalopathy Condition: Fair Pertinent studies: CT head without contrast CTA head CTA neck Carotid Doppler Echocardiogram MRI brain Abdominal x-ray PEG placement Repeat MRI brain Abdominal x-ray RICH CT head Echocardiogram Procedures: PEG placement Hospital course: 61 YO Male with Vascular Dementia, Cerebral Atherosclerosis, CVA presents to ED for evaluation of CVA patient found to have clinical symptoms consistent with CVA complicated by dysphagia, dysarthria. Patient also appears to have expressive aphasia. Patient also found to have hypoglycemia and was treated with dextrose therapy with mild improvement in symptoms. Patient admitted to telemetry and initiated on stroke protocol. 61 YO Male with Vascular Dementia, Cerebral Atherosclerosis, CVA presents to ED for evaluation of CVA patient found to have clinical symptoms consistent with CVA complicated by dysphagia, dysarthria. Patient also appears to have expressive aphasia. Patient also found to have hypoglycemia and was treated with dextrose therapy with mild improvement in symptoms. Patient admitted to telemetry and initiated on stroke protocol. Neuro work-up as mentioned below --Acute CVA with right hemiparesis; Aspirin and statin, physical therapy occupational therapy rehabilitation Supportive care Subacute rehab versus SNF versus home with home health when stable MRI brain; a few small scattered areas of ischemia embolic phenomenon should be considered otherwise no focal mass acute hemorrhage hydrocephalus or acute large territorial infarct seen sinus disease noted --Possible embolic CVA ; per MRI brain ; Neurology recommended RICH to rule out cardiac source of embolic phenomena RICH no thrombus ,no vegetation ,no valve disease no septal defect or aneurysm is noted Echo 11/12/2021-EF 55 to 60%. Normal LV segmental wall motion. Right ventricle is normal in size right ventricle systolic function is normal. Saline bubble study did not demonstrate PFO RICH 11/23/2021-no evidence of intracardiac thrombus or spontaneous echo contrast or mass. EF 55 to 60%. No evidence of significant valvulopathy. No pericardial effusion. Mild aortic plaque --Severe toxic metabolic encephalopathy; Neuro work-up reviewed Acute CVA with right hemiparesis Continue supportive care --expressive aphasia; Speech therapy, supportive care --Dysarthria; Speech therapy, supportive care --Oropharyngeal dysphagia; GI evaluated the patient, status post PEG placement 11/16/2021 Continue tube feeding, aspiration precautions --General debility; PT OT supportive care Subacute rehab -Hypokalemia Replenish and monitor -Hypoglycemia; Closely monitor blood sugars Adjust medications as needed Avoid hypoglycemic episodes --DVT prophylaxis; Subcu heparin. Initially planned SNF placement however later case management reported Patient will be discharged home with home health Patient is hemodynamically and clinically stable at discharge Patient sister at the bedside Disposition: HOME HEALTH CARE SERVICE Final Discharge Diagnosis (Prints w/discharge instructions): Acute CVA with right hemiparesis. PE negative for intracardiac thrombus or shunt. Severe toxic metabolic encephalopathy present on admission/resolved. Expressive aphasia. Dysarthria. Oropharyngeal dysphagia/s/p PEG placement. General debility. Hypokalemia corrected. Hypoglycemia corrected. Mild malnutrition Time spent for discharge: 40 minutes Core Measure Documentation - Palliative Care Palliative Care/ Comfort Measures: Not Applicable - Core Measures Any of the following diagnoses?: stroke - Stroke Discharge Requirements Statin for LDL = or >70 mg/dl on DC: Yes Anticoag for atrial fib/atrial flutter: Not Applicable (No A. fib or atrial flutter) Antithrombotic for ischemic stroke: Yes Exam - Constitutional Vitals: Temp Pulse Resp BP Pulse Ox 98.2 F 83 18 159/85 99 11/27/21 08:27 11/27/21 08:27 11/27/21 08:27 11/27/21 08:27 11/27/21 08:27 General appearance: Present: no acute distress, well-nourished, other (Noncommunicative) - EENT Eyes: Present: PERRL, EOM intact - Neck Neck: Present: supple, normal ROM - Respiratory Respiratory effort: normal Respiratory: bilateral: diminished, negative: rales, rhonchi, wheezing - Cardiovascular Rhythm: regular Heart Sounds: Present: S1 & S2 - Extremities Extremities: no ischemia, No edema - Abdominal General gastrointestinal: Present: soft, non-tender, non-distended, other (PEG tube in place) - Integumentary Integumentary: Present: clear, warm - Musculoskeletal Musculoskeletal: right sided weakness - Psychiatric Psychiatric: cooperative, other (Dysarthria noncommunicative) - Neurologic Neurologic: moves all extremities (Acute CVA with right hemiparesis) Plan Activity: advance as tolerated, fall precautions Diet: other (Tube feeding per protocol) Special Instructions: physical therapy (Home physical therapy), occupational therapy (Home) Additional Instructions: if you have worsening symptoms contact MD or go to the nearest emergency room. Fall precautions, aspiration precautions. Tube feeding per protocol elevate the head 45 degrees to prevent aspiration. Advised to follow [place] primary care physician in 1 week. Private neurologist in 1 to 2 weeks Follow up with: [facility] [Other] - 7 Days KIM DE LEON MD [Staff Physician] - 7 Days Prescriptions: bisacodyL [Dulcolax suppos] 10 mg MS QDAY PRN #14 supp.rect PRN Reason: Constipation Lactose-Reduced Food [Ensure Complete] 296 ml PO TID 30 Days #90 guaiFENesin DM [Guaifenesin Dm Syrup] 10 ml PO Q4H PRN 10 Days #1 bottle PRN Reason: Cough Aspirin EC [Halfprin EC] 81 mg PO QDAY #30 tablet. AtorvaSTATin [Lipitor] 40 mg PO QHS #30 tablet Lipase/Protease/Amylase [[place] 10,500 Unit] 1 each FEEDTUBE PRN PRN #14 capsule PRN Reason: For Clogged Feeding Tube Clopidogrel [Plavix] 75 mg PO QDAY #30
[2021-11-27] MEDS: CLOPIDOGREL 75 MG TAB PO SCH (10:55)
[2021-11-27] MEDS: ASPIRIN 325 MG TAB PO SCH (10:55)
[2021-11-27 12:56] VITALS: BP 151/77
[2021-11-27] MEDS ORDERED: guaiFENesin DM 200/20 MG ORAL LIQD 10 ML PO PRN (14:00)
== END 2021-11-27 15:50 | disposition home or self-care (01) | DRG 64 ==
LOC: ED 16:26 → 4A 19:11
PROVIDERS: ADMIT Internal Medicine; ATTEND Internal Medicine
PROC: 0DH63UZ Insertion of Feeding Device into Stomach, Percutaneous Approach (ICD-10-PCS; principal; 2021-11-16)
DX: I63.89 Other cerebral infarction (principal); G92.8 Other toxic encephalopathy; G81.91 Hemiplegia, unspecified affecting right dominant side; E44.1 Mild protein-calorie malnutrition; R47.1 Dysarthria and anarthria; E16.2 Hypoglycemia, unspecified; I67.2 Cerebral atherosclerosis; F01.50 Vascular dementia, unspecified severity, without behavioral disturbance, psychotic disturbance, mood disturbance, and anxiety; I10 Essential (primary) hypertension; I69.322 Dysarthria following cerebral infarction; R13.12 Dysphagia, oropharyngeal phase; Z59.01 Sheltered homelessness; E87.6 Hypokalemia; Z68.20 Body mass index [BMI] 20.0-20.9, adult; Z82.49 Family history of ischemic heart disease and other diseases of the circulatory system
CPT/HCPCS: 36415; 70450; 70496; 70498; 70551; 70553; 71045; 74018; 80048; 80053; 80061; 81001; 82140; 82550; 82553; 82962; 83735; 84132; 84443; 84484; 85025; 85027; 85610; 85670; 85730; 93005; 93306; 93312; 93320; 93325; 93880; G0378; J3490; J7120; Q0162; A9575; A9579; C8929; J0360; J1170; J1644; J2405; J2704; J3010; J3480; J7030; Q9967